=== PATIENT | male | born 1950 | race Caucasian/White ===

== ENCOUNTER 2024-03-20 07:54 | Inpatient (IN) | payer MEDICARE, BC, SELFPAY ==
[2024-03-20] VITALS (33 sets, daily range): BP systolic 134–190; BP diastolic 55–102; PULSE 92–136; RESP 19–34; TEMP 36.4–37.1; O2SAT 94–100; BMI 33.0
--- NOTE | ~2024-03-20 | XR_ITS ---
EXAMINATION: XR chest 1V portable DATE: 03/20/2024 13:22 INDICATION: Worsening respiratory status. TECHNIQUE: A single frontal view of the chest was obtained on 2 radiographs. COMPARISON: Chest single view at 8:58 AM, CT abdomen and pelvis 01/28/2013 FINDINGS: There is chronic elevation of left hemidiaphragm. There is mild atelectasis at left lung ba se. No pleural effusion or pneumothorax. The heart size is normal. IMPRESSION: 1. Chronic elevation of left hemidiaphragm with mild atelectasis at left lung base. Reviewed, dictated and finalized at location A. LE FUSION MIDDLEWARE DEVELOPER IMPRESSION: 1. Chronic elevation of left hemidiaphragm with mild atelectasis at left lung b ase.
--- NOTE | ~2024-03-20 | XR_ITS ---
Portable chest x-ray Comparison: 03/20/2024 Clinical History: Influenza Findings: Czkks-co-nowrvrau left pleural effusion present. There are central pulmonary venous conges tive changes. Right lung otherwise clear. Cardiomediastinal silhouette is stable. Bones and soft tis sues are unremarkable. Impression: Qopji-hn-tzwnichk left pleural effusion. Central pulmonary venous congestive change. Reviewed, dictated and finalized at location . OR PETROLEUM OPERATOR Impression: Dqxik-[id number]-jpxkdgwj left pleural effusion. Central pulmonary venous congestive change.
--- NOTE | ~2024-03-20 | XR_ITS ---
Portable chest x-ray Comparison: 01/05/2016 Clinical History: COPD, dyspnea Findings: There is probable mild bibasilar pulmonary edema/atelectasis. Stable elevation of left hem idiaphragm. Underlying COPD. Probable minimal pleural effusions. Cardiomediastinal silhouette is stab le. Bones and soft tissues are unremarkable. Impression: Mild bibasilar pulmonary edema/atelectasis with minimal pleural effusions. Underlying COPD and stable elevation left hemidiaphragm. Reviewed, dictated and finalized at location [employer] Impression: Mild bibasilar pulmonary edema/atelectasis with minimal pleural effusions. Underlying COPD and stable elevation left hemidiaphragm.
--- NOTE | 2024-03-20 08:02 | ECG_ITS ---
Test Date: 2024-03-20 08:00:12 Measurements Intervals [place] Rate: 127 P: 46 MN: 176 QRS: 65 QRSD: 101 T: 50 QT: 313 QTc: 456 Interpretive Statements SINUS TACHYCARDIA INCOMPLETE RIGHT BUNDLE BRANCH BLOCK BASELINE ARTIFACT- I, II, III, AVR, AVL, AVF, V3-V6 ABNORMAL ECG No previous ECG available for comparison Electronically Signed On 03-20-2024 09:04:57 FIELD SERVICER by Toney Rojas D.O.
[2024-03-20 08:16] LABS: Basophils Percent Auto 0.3 % (0.2-1.2); Eosinophils Absolute Auto 0.1 K/mm3 (0-0.3); Eosinophils Percent Auto 0.7 % (0-4.4); Hematocrit 42.2 % (42.0-52.0); Hemoglobin 13.9 g/dL (14.0-18.0); Immature Granulocyte Absolute 0.08 K/mm3 (0.00-0.031); Immature Granulocyte Percent A 0.5 % (0-0.5); Lymphocytes Absolute Auto 1.06 K/mm3 (0.9-3.2); Lymphocytes Percent Auto 7.1 % (18.3-44.2); Mean Corpuscular HGB Conc 32.9 g/dl (32-36); Mean Corpuscular Hemoglobin 31.1 pg (26-34); Mean Corpuscular Volume 94.4 fl (80-100); Mean Platelet Volume 8.4 fl (7.4-10.4); Monocytes Absolute Auto 0.9 K/mm3 (0.1-0.6); Monocytes Percent Auto 5.9 % (2.6-8.5); Neutrophils Absolute Auto 12.9 K/mm3 (1.3-6.7); Neutrophils Percent Auto 85.5 % (45.5-73.1); Platelet Count Result 218 k/mm3 (150-375); Red Blood Count 4.47 M/mm3 (4.6-6.20); Red Cell Distribution Width 12.8 % (11.5-14.5)
[2024-03-20 08:28] LABS: Alveolar/Arterial O2 Gradient 139.5 mmHg; Base Excess ABG 2.5 mEq/l (+/-2.0); Fractional Inspired Oxygen 80 %; HCO3 ABG 28.7 mEq/l (22.0-26.0); Oxygen Content ABG 21.2 %vol (16.0-22.0); Oxygen Saturation ABG 99.8 % (95.0-100.0); Oxyhemoglobin 99.2 % THb (90.0-100.0); PCO2 ABG 50.2 mmHg (35.0-45.0); PO2 ABG 378.2 mmHg (80.0-100.0); PO2 FiO2 Ratio Arterial Blood 4.73 %; Total Hemoglobin 14.5 g/dL (12.0-18.0); pH ABG 7.375 (7.350-7.450)
[2024-03-20 08:29] LABS: Device BIPAP; Expiratory Pressure 8 cmH2O; Inspiratory Pressure 16 cmH2O; Modified Allen's Test Pass; Site Drawn RIGHT RADIAL
[2024-03-20 08:30] LABS: Lactic Acid Reflex 1.6 mmol/L (0.7-2.0)
[2024-03-20] MEDS: ALBUTEROL SULFATE NEB 2.5 MG/3 ML INH 15 MG INHALATION (08:30)
[2024-03-20] MEDS: IPRATROPIUM BR 0.02% INH SOLN 0.5 MG/2.5 ML VIAL 1 MG INHALATION (08:30)
[2024-03-20 08:31] LABS: Alanine Aminotransferase 31 U/L (6-50); Albumin Level 4.3 g/dL (3.5-5.1); Alkaline Phosphatase 73 U/L (38-126); Anion Gap 13 mmol/L (4-12); Aspartate Amino Transferase 41 U/L (17-59); Bilirubin,Total 0.5 mg/dL (0.2-1.3); Blood Urea Nitrogen 15 mg/dL (9-20); Calcium 9.2 mg/dL (8.4-10.2); Carbon Dioxide 25 mmol/L (22-30); Chloride 98 mmol/L (98-107); Estimated CRCL calculation 101 ml/min; Estimated Glomerular Filt Rate > 60; Glucose 150 mg/dL (65-110); Magnesium 1.6 mg/dL (1.6-2.3); Potassium 4.1 mmol/L (3.4-5.0); Sodium 136 mmol/L (137-145)
[2024-03-20 08:42] LABS: NT Pro B Type Natriuretic Pept 214 pg/mL (19.9-100); Troponin I < 0.012 ng/mL (0.000-0.034)
--- OUTSIDE RECORDS SUMMARY | 2024-03-20 08:46 | XMS_ITS | Referral Summary ---
Author Organization [facility] Address [address] [place] [address] Care Team Providers Care External Grinder Tender Name Role Phone Unavailable Primary Care Provider Unavailabl e Source Comments [facility],non-owned Affiliates and Associated Physician Practices is amultiple site organization consisting of ambulatory clinics and hospital sitesin [place], [place], [place]. This disclosure is being madepursuant to the Care Everywhere program and may not contain all information available regarding this patient. Last updated 17.[facility] Social History Tobacco Use Types Packs/Day Years Used Date Smoking Tobacco: Never Assessed Sex and Gender Information Value Date Recorded Sex Assigned at Not on file Gender Identity Not on file Sexual Orientation Not on file Plan of Treatment Not on file
--- OUTSIDE RECORDS SUMMARY | 2024-03-20 08:46 | XMS_ITS | Clinical Summary ---
Author Organization [facility] [employer] Address [address] [place] [address] Care Team Providers Care Speed Belt Sander Name Role Phone Unavailable Primary Care Provider Unavailabl e Source Comments [facility] [employer]non-owned Affiliates and Associated Physician Practices is amultiple site organization consisting of ambulatory clinics and hospital sitesin [place], [place], [place] and [place]. This disclosure is being madepursuant to the Care Everywhere program and may not contain all information available regarding this patient. Last updated 17.[facility] [employer] Social History Tobacco Use Types Packs/Day Years Used Date Smoking Tobacco: Never Assessed Sex and Gender Information Value Date Recorded Sex Assigned at Not on file Gender Identity Not on file Sexual Orientation Not on file Plan of Treatment Health Maintenance Due Date Last Done Comments COLOGUARD (AGES 45-75) - COL ON CA SCREENING 1952 COLON MONITORING 1952 COLONOSCOPY - COLON CA SCREENING 1952 CT COLONOGRAPHY - COLON CA SCREENING 1952 Colorectal Cancer Screening 1952 FIT - COLON CA SCREENING 1952 FLEX SIG - COLON CA SCREENING 1952 LIPID TESTING 1952 HEPATITIS C SCREENING 01/14/1970 DTAP/TDAP/TD VACCINES (1 - Tdap) 01/18/1971 PNEUMOCOCCAL VACCINE 50+ (1 of 1 - PCV) 01/18/2002 ZOSTER VACCINE (1 of 2) 01/18/2002 COVID-19 VACCINE ( - 2023-2 5 season) 2023 INFLUENZA VACCINE (#1) 2023 DEPRESSION SCREENING 02/08/2024 Respiratory Syncytial Virus (RSV) Vaccine Pt: or over 60 yrs (1 - 1-dose 75+ series) 01/18/2027 HEPATITIS B VACCINE Aged Out No longe r eligible based on patient's age to complete this topic HIB VACCINE Aged Out No longer eligi ble based on patient's age to complete this topic HPV VACCINE Aged Out No longer eligi ble based on patient's age to complete this topic MENINGOCOCCAL (Group B) VACCINE Aged Out No longer eligible based on patient's age to complete this topic MENINGOCOCCAL VACCINE Aged Out No boy deb eligible based on patient's age to complete this topic
--- OUTSIDE RECORDS SUMMARY | 2024-03-20 08:46 | XMS_ITS | Patient Health Summary ---
Author Organization [facility] Address [address] [place] [address] Care Team Providers Care Ross Furnace Operator Name Role Phone Unavailable Primary Care Provider Unavailabl e Note from [facility],non-owned Affiliates and Associated Physician Practices is amultiple site organization consisting of ambulatory clinics and hospital sitesin [place], [place], [place] and [place]. This disclosure is being madepursuant to the Care Everywhere program and may not contain all information available regarding this patient. Last updated 17.[facility] [employer] Social History Tobacco Use Types Packs/Day Years Used Date Smoking Tobacco: Never Assessed Sex and Gender Information Value Date Recorded Sex Assigned at Not on file Gender Identity Not on file Sexual Orientation Not on file Procedures * CYTOLOGY NON-AUTOMATION CONTROLS EXPERT PANEL(Performed 07/25/2003) Results * CYTOLOGY NON-AUTOMATION CONTROLS EXPERT PANEL (07/25/2003 10:19 AM CDT) Result CASE NUMBER [id number] Comment: ORDERING PHYSICIAN EDY MAYES SPECIMEN TYPE Bronchial Washing-left Surgeon DR. EDY MAYES Physician DR. ROBERT CARR Report Text INDICATION FOR PROCEDURE HEMOPTYSIS OPERATION BRONCHOSCOPY SPECIMEN LEFT BRONCHIAL WASHING GROSS RECEIVED 14 ML. CLOUDY COLORLESS FLUID. MICROSCOPIC ONE CYTOLOGY THIN PREP SLIDE AND ONE CELL BLOCK SLIDE OF LEFT BRONCHIAL WASHINGS SHOW COLUMNAR CELLS, SQUAMOUS CELLS AND INFLAMMATORY CELLS. MALIGNANT CELLS ARE NOT IDENTIFIED. DIAGNOSIS DIAGNOSIS [1] LEFT BRONCHIAL WASHINGS, CYTOLOGY AND CELL BLOCK PREPARATION -- NEGATIVE FOR MALIGNANCY JW/CS Released By ROBERT CARR CPT Code 91071, 09160 MISCELLANEOUS SAMPLES / Unknown 07/25/2003 10:19 AM CDT 07/25/2003 10:19 AM CDT Historical Provider LAB - PATHOLOGY/C YTOLOGY ORDERABLES
[2024-03-20 08:51] LABS: Influenza A QL RT-PCR Positive (Negative); Influenza B QL RT-PCR Negative (Negative); RSV RNA, RT-PCR Negative (Negative); SARS-CoV-2 RNA PCR Negative (Negative)
--- NOTE | 2024-03-20 09:00 | ED.SOB ---
HPI - SOB/Dyspnea General Chief Complaint: Shortness of Breath/Dyspnea Stated Complaint: sob Time Seen by Provider: 03/20/24 07:57 History of Present Illness HPI Narrative: Patient presents here with shortness of breath, h/o COPD, has flu 1 wk ago. Last 2 days he has been using his CPAP continuously. Related Data Home Medications ?Medication ?Instructions ?Recorded ?Confirmed ?Last Taken ?Type phenytoin sodium extended 100 mg 200 mg PO Q12H 06/13/23 03/20/24 03/19/24 History capsule acetaminophen 500 mg capsule 1,000 mg PO Q12H 03/20/24 03/20/24 03/19/24 History amitriptyline 50 mg tablet 50 mg PO HS 03/20/24 03/20/24 03/19/24 History cyanocobalamin (vitamin B-12) 1,000 mcg PO DAILY 03/20/24 03/20/24 03/19/24 History 1,000 mcg tablet (Vitamin B-12) omega 6-nep-dbt-fish oil 1,000 mg 1 cap PO DAILY 03/20/24 03/20/24 03/19/24 History (120 mg-180 mg) capsule (Fish Oil) simvastatin 10 mg tablet 10 mg PO HS 03/20/24 03/20/24 03/19/24 History venlafaxine 75 mg capsule,extended 75 mg PO HS 03/20/24 03/20/24 03/19/24 History release 24 hr venlafaxine 75 mg tablet 150 mg PO QAM 03/20/24 03/20/24 03/19/24 History Allergies Allergy/AdvReac Type Severity Reaction Status Date / Time ibuprofen Allergy Intermediate Itching Verified 03/20/24 12:08 Review of Systems Review of Systems: All systems reviewed & are unremarkable except as noted in HPI and below PMFSH Past Medical History Medical History Anxiety Asthma COPD (chronic obstructive pulmonary disease) Diaphragm paralysis History of tobacco abuse Hoarseness HTN (hypertension) Hyperlipidemia Obstructive sleep apnea Shortness of Breath Stridor Surgical History Surgical History History of carpal tunnel surgery Family History Family History Father Mother Twisting of colon on long axis Social History Social History (Updated 11/23/23 @ 14:42 by Karolyn Hunter MA) Social History: Quit smoking 2019 but reports he smoking a cigarette very rarely., engages in vaping and marijuana Smoking packs per day: 0.75 Smoking cigarettes per day: 15.0 Smoking status: Current every day smoker Tobacco type: cigarettes Second hand tobacco smoke exposure: Yes Additional smoking assessment comments: 30 Alcohol intake: never Substance use: current Substance use type: marijuana Other substance usage details: gummies Do You Feel Safe in your Home?: Yes Lack of Transportation: No Lack of Food: Never True Current Housing: I Have Housing Concerned About Future Housing: No Difficulty Paying Gas/Electric Bills: No Difficulty Paying for Meds: No Currently Unemployed: No Education: Trade/Vocational Certificate Difficulty w/ Childcare or Family Care: No Living arrangements: with family Occupation/Education: retired 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 Gender identity (if verbalized by the patient): Male Spiritual care concerns: No Exam Narrative: EXAMINATION OF ORGAN SYSTEMS/BODY AREAS: Constitutional: Vital signs per nursing GENERAL:[No acute distress, non-toxic appearing.] HEAD: Normal with no signs of head trauma. EYES: EOMI, conjunctiva normal ENT: Hearing grossly intact LUNGS: Quite tachypneic and anxious appearing HEART: Tachycardic ABD: [Soft], [nontender to palpation] EXT: Normal range of motion, no lower extremity edema or tenderness SKIN: [No rashes or lesions.] NEURO: [Alert and oriented x 3. No gross focal sensory or strength deficits.] PSYCH: Normal affect Course Vital Signs Vital signs: Vital Signs Temperature 97.9 F 03/20/24 07:57 Pulse Rate 130 H 03/20/24 07:57 Respiratory Rate 22 H 03/20/24 07:57 Blood Pressure 190/102 H 03/20/24 07:57 Pulse Oximetry 100 03/20/24 07:57 Oxygen Delivery BiPAP 03/20/24 07:57 Temperature 98.5 F 03/20/24 12:06 Pulse Rate 121 H 03/20/24 12:06 Respiratory Rate 34 H 03/20/24 12:06 Blood Pressure 142/99 H 03/20/24 12:06 Pulse Oximetry 97 03/20/24 12:06 Oxygen Delivery BiPAP 03/20/24 11:50 MDM - SOB/Dyspnea MDM Narrative Medical decision making narrative: Patient presents with shortness of breath, he has history of COPD, is now much more comfortable on BiPAP. He is tachycardic dyspneic here, very anxious appearing, did give him small dose of Ativan with improvement in symptoms, he did test positive for the flu, will start him on Tamiflu and admit him for further evaluation and treatment. Discussed with hospitalist. Patient agreeable to plan. Lab Data 03/20/24 08:05 03/20/24 08:05 Labs: Lab Results 03/20/24 03/20/24 Range/Units 08:05 08:20 WBC 15.0 H (4.5-10.0) K/mm3 RBC 4.47 L (4.6-6.20) M/mm3 Hgb 13.9 L (14.0-18.0) g/dL Hct 42.2 (42.0-52.0) % MCV 94.4 (80-100) fl MCH 31.1 (26-34) pg MCHC 32.9 (32-36) g/dl RDW 12.8 (11.5-14.5) % Plt Count 218 (150-375) k/mm3 MPV 8.4 (7.4-10.4) fl Immature Gran % (Auto) 0.5 (0-0.5) % Neut % (Auto) 85.5 H (45.5-73.1) % Lymph % (Auto) 7.1 L (18.3-44.2) % [place] % (Auto) 5.9 (2.6-8.5) % Eos % (Auto) 0.7 (0-4.4) % Baso % (Auto) 0.3 (0.2-1.2) % Lymph # (Auto) 1.06 (0.9-3.2) K/mm3 [place] # (Auto) 0.9 H (0.1-0.6) K/mm3 Eos # (Auto) 0.1 (0-0.3) K/mm3 Baso # (Auto) 0.0 (0.0-0.1) K/mm3 Abs Immat Gran (auto) 0.08 H (0.00-0.031) K/mm3 Absolute Neuts (auto) 12.9 H (1.3-6.7) K/mm3 Absolute Nucleated RBC 0.000 (0.0-0.012) K/mm3 Nucleated RBC % 0.0 (0.0-0.2) % PT 13.0 (11.1-14.7) Seconds INR 1.0 APTT 28.3 (22.3-36.8) Seconds Expiratory Pressure 8 cmH2O Inspiratory Pressure 16 cmH2O Sodium 136 L (137-145) mmol/L Potassium 4.1 (3.4-5.0) mmol/L Chloride 98 (98-107) mmol/L Carbon Dioxide 25 (22-30) mmol/L Anion Gap 13 H (4-12) mmol/L BUN 15 (9-20) mg/dL Creatinine 0.73 (0.7-1.3) mg/dL Estim Creat Clear Calc 101 ml/min Estimated GFR > 60 (59 - ) Glucose 150 H (65-110) mg/dL Lactic Acid 1.6 (0.7-2.0) mmol/L Calcium 9.2 (8.4-10.2) mg/dL Magnesium 1.6 (1.6-2.3) mg/dL Total Bilirubin 0.5 (0.2-1.3) mg/dL AST 41 (17-59) U/L ALT 31 (6-50) U/L Alkaline Phosphatase 73 (38-126) U/L Troponin I < 0.012 (0.000-0.034) ng/mL NT-Pro-B Natriuret Pep 214 H (19.9-100) pg/mL Total Protein 9.0 H (6.3-8.2) g/dL Albumin 4.3 (3.5-5.1) g/dL Influenza A (RT-PCR) Positive A (Negative) Influenza B (RT-PCR) Negative (Negative) RSV (RT-PCR) Negative (Negative) SARS-CoV-2 RNA (RT-PCR) Negative (Negative) ABG Data ABG results: 03/20/24 08:20 Puncture Site Right radial ABG pH 7.375 ABG pCO2 50.2 H ABG pO2 378.2 H ABG PO2/FiO2 Ratio 4.73 ABG HCO3 28.7 H ABG O2 Saturation 99.8 ABG O2 Content 21.2 ABG Base Excess 2.5 A-a Gradient 139.5 Oxyhemoglobin 99.2 Total Hemoglobin 14.5 O2 Delivery Device Bipap O2 Liters/Min Not Reportable FiO2 80 Critical Care Time Critical Care Time Critical Care Time: Yes Total Critical Care Time: 31 Discharge Plan Discharge Clinical Impression: Flu, Chronic obstructive pulmonary disease with acute exacerbation Patient Disposition: Still a Patient Condition: Serious
[2024-03-20 09:08] LABS: Partial Thromboplastin Time 28.3 Seconds (22.3-36.8)
[2024-03-20] MEDS: methylPREDNISolone SOD SUCC 125 MG VIAL IV PUSH (10:19)
[2024-03-20] MEDS: LACTATED RINGERS 1,000 ML 999 ML IV CONT (10:19)
[2024-03-20] MEDS: LORazepam INJ (*CRX) 2 MG/ML VIAL 0.5 MG IV PUSH (10:19)
[2024-03-20] MEDS: OSELTAMIVIR PHOSPHATE 75 MG CAPSULE PO ×2 (11:25→21:14)
--- NOTE | 2024-03-20 12:06 | ADMGEN ---
This patient, Scot Watson Sr., was admitted to IMU Room 210-01. Patient/family oriented to hospital policies and general routines including ID bracelet, bed and alarms, visiting hours, pain management, procedures, bathroom and other care routines, personal items, smoking policy, room service/diet, and visiting hours. Information on how to activate the Rapid Response Team has been discussed. Patient/Family are encouraged to report perceived risks to care and to ask questions if they do not understand what they are told or what they should do.
--- NOTE | 2024-03-20 13:04 | P.HP_ITS ---
H&P: HPI History of Present Illness Date/Time: 03/20/24 13:04 Chief Complaint: Shortness of breath Narrative: 74-year-old male with history of COPD presents to the hospital shortness of breath. Patient states that his has been sick for the past couple days and he was afraid that he would get sick. he states that his breathing was so bad last night that he thought he was going to . So he came to the hospital this morning with extreme shortness of breath Unable to lay flat or on his side. He states like he felt like he was drowning. Patient denies fevers chills nausea or vomiting. Leukocytosis at 15.0, ABG pH 7.37, pCO2 50.2, PO2 378, HC03 28, on the BiPAP in the emergency room, anion gap 13, glucose 150, lactic acid 1.6, BNP 214, influenza A positive, influenza B, RSV, COVID negative. Chest x-ray shows mild pulmonary edema versus atelectasis with pleural effusion. EKG shows sinus tachycardia rate of 127 with incomplete right bundle luis block. Review of Systems Review of Systems: 12 systems were reviewed and are negative except for as per HPI. [facility] Past Medical History Medical History Stridor Hoarseness History of tobacco abuse Obstructive sleep apnea Shortness of Breath Diaphragm paralysis Anxiety COPD (chronic obstructive pulmonary disease) Asthma Hyperlipidemia HTN (hypertension) Surgical History Surgical History History of carpal tunnel surgery Family History Family History Father Mother Twisting of colon on long axis Social History Social History Social History: Quit smoking 2018 but reports he smoking a cigarette very rarely., engages in vaping and marijuana Smoking packs per day: 0.75 Smoking cigarettes per day: 15.0 Smoking status: Current every day smoker Tobacco type: cigarettes Second hand tobacco smoke exposure: Yes Additional smoking assessment comments: 30 Alcohol intake: never Substance use: current Substance use type: marijuana Other substance usage details: gummies Do You Feel Safe in your Home?: Yes Lack of Transportation: No Lack of Food: Never True Current Housing: I Have Housing Concerned About Future Housing: No Difficulty Paying Gas/Electric Bills: No Difficulty Paying for Meds: No Currently Unemployed: No Education: Trade/Vocational Certificate Difficulty w/ Childcare or Family Care: No Living arrangements: with family Occupation/Education: retired 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 Gender identity (if verbalized by the patient): Male Spiritual care concerns: No Meds Home Medications and Allergies Home Medications ?Medication ?Instructions ?Recorded ?Confirmed ?Type albuterol sulfate 2.5 mg/3 mL 2.5 mg (3 mL) inhalation Q4-6H PRN 07/23/20 03/20/24 Rx (0.083 %) solution for nebulization shortness of breath or wheezing 90 days #1,080 mL buspirone 15 mg tablet 15 mg PO QAM #90 tabs 04/11/23 03/20/24 Rx phenytoin sodium extended 100 mg 200 mg PO Q12H 06/13/23 03/20/24 History capsule triamterene 37.5 See Rx Instructions .Route 08/14/23 03/20/24 Rx mg-hydrochlorothiazide 25 mg .COMPLEX #90 caps capsule budesonide-formoterol HFA 80 2 puff inhalation Q12H 90 days 11/23/23 03/20/24 Rx mcg-4.5 mcg/actuation aerosol #30.6 grams inhaler (Symbicort) Incruse Ellipta 62.5 mcg/actuation 1 inh inhalation Q24H #30 ea 02/10/24 03/20/24 Rx powder for inhalation (umeclidinium) Incruse Ellipta 62.5 mcg/actuation 1 inh inhalation Q24H 90 days #90 02/10/24 03/20/24 Rx powder for inhalation ea (umeclidinium) albuterol sulfate 90 mcg/actuation See Rx Instructions .Route 02/14/24 03/20/24 Rx aerosol inhaler .COMPLEX #51 grams acetaminophen 500 mg capsule 1,000 mg PO Q12H 03/20/24 03/20/24 History amitriptyline 50 mg tablet 50 mg PO HS 03/20/24 03/20/24 History cyanocobalamin (vitamin B-12) 1,000 mcg PO DAILY 03/20/24 03/20/24 History 1,000 mcg tablet (Vitamin B-12) omega 9-dme-nhe-fish oil 1,000 mg 1 cap PO DAILY 03/20/24 03/20/24 History (120 mg-180 mg) capsule (Fish Oil) simvastatin 10 mg tablet 10 mg PO HS 03/20/24 03/20/24 History venlafaxine 75 mg capsule,extended 75 mg PO HS 03/20/24 03/20/24 History release 24 hr venlafaxine 75 mg tablet 150 mg PO QAM 03/20/24 03/20/24 History Allergies Allergy/AdvReac Type Severity Reaction Status Date / Time ibuprofen Allergy Intermediate Itching Verified 03/20/24 12:08 Vital Signs Vital Signs - 24 hr 03/20/24 07:57 03/20/24 08:00 03/20/24 08:08 Temperature 97.9 F Pulse Rate 130 H 128 H 124 H Respiratory Rate 22 H 28 H 21 H Blood Pressure 190/102 H Pulse Oximetry 100 100 Oxygen Delivery BiPAP BiPAP 03/20/24 08:15 03/20/24 08:30 03/20/24 08:30 Temperature Pulse Rate 135 H 122 H 128 H Respiratory Rate 20 28 H Blood Pressure Pulse Oximetry 99 97 Oxygen Delivery BiPAP 03/20/24 08:38 03/20/24 08:56 03/20/24 09:03 Temperature Pulse Rate 124 H 124 H Respiratory Rate 25 H 19 Blood Pressure Pulse Oximetry 100 97 99 Oxygen Delivery 03/20/24 09:05 03/20/24 09:15 03/20/24 09:30 Temperature Pulse Rate 126 H 136 H 125 H Respiratory Rate 21 H 22 H 26 H Blood Pressure 159/91 H Pulse Oximetry 97 97 96 Oxygen Delivery 03/20/24 09:45 03/20/24 09:55 03/20/24 10:00 Temperature Pulse Rate 125 H 123 H 124 H Respiratory Rate 21 H 25 H 26 H Blood Pressure 151/99 H Pulse Oximetry 99 99 98 Oxygen Delivery BiPAP 03/20/24 10:16 03/20/24 10:17 03/20/24 10:17 Temperature Pulse Rate 124 H 122 H Respiratory Rate 22 H Blood Pressure Pulse Oximetry 98 98 Oxygen Delivery BiPAP 03/20/24 10:18 03/20/24 11:25 03/20/24 11:50 Temperature Pulse Rate 121 H 122 H Respiratory Rate 28 H 23 H Blood Pressure Pulse Oximetry 97 99 Oxygen Delivery BiPAP BiPAP 03/20/24 12:06 Temperature 98.5 F Pulse Rate 121 H Respiratory Rate 34 H Blood Pressure 142/99 H Pulse Oximetry 97 Oxygen Delivery Exam Narrative: General: Mild distress, tachypneic HEENT: normocephalic, atraumatic. Mucous membranes moist. EOMI, PERRLA, bilateral sclera anicteric, no conjunctival injection. Neck supple without JVD, lymphadenopathy, or bruit. Respiratory: Course to ascultation bilaterally. Tachypneic on BiPAP Cardiovascular: Tachycardic Regular rate and rhythm, normal S1-S2 upon ascultation. No murmurs, rubs, or clicks. PMI is nondisplaced, capillary refill less than 3 second. Abdomen: Soft, round, no pulsatile masses, nondistended and nontender. No rebound, no guarding. No CVA tenderness, no hepatosplenomegaly. Bowel sounds present to all four quadrants. No high pitch or tinkling sounds, resonant to percussion. Extremities: No cyanosis, clubbing, or edema present. Pulses are palpable 2/2. Active ROM to all four extremities. Neuro: Alert and orientated x 4. PERRLA. Cranial nerves 2-12 intact without focal deficit. Skin: Warm, dry, and intact, without rash, erythema, or lesion. Psych: pleasant, cooperative, normal speech, normal affect, no hallucinations, no dysarthia H&P: Results Labs Labs: Short CBC 03/20/24 Range/Units 08:05 WBC 15.0 H (4.5-10.0) K/mm3 Hgb 13.9 L (14.0-18.0) g/dL Hct 42.2 (42.0-52.0) % Plt Count 218 (150-375) k/mm3 BMP 03/20/24 08:05 Sodium 136 L Potassium 4.1 Chloride 98 Carbon Dioxide 25 BUN 15 Creatinine 0.73 Glucose 150 H Calcium 9.2 Cardiac Enzymes 03/20/24 Range/Units 08:05 Troponin I < 0.012 (0.000-0.034) ng/mL Liver Function 03/20/24 Range/Units 08:05 Total Bilirubin 0.5 (0.2-1.3) mg/dL AST 41 (17-59) U/L ALT 31 (6-50) U/L Alkaline Phosphatase 73 (38-126) U/L Albumin 4.3 (3.5-5.1) g/dL Assessment and Plan Assessment and plan (1) Acute respiratory distress: Code(s): R06.03 - Acute respiratory distress Status: Acute Assessment and Plan: Secondary to COPD exacerbation and pulmonary edema with no history of CHF Patient on BiPAP with increased respiratory distress since admission, patient wishes to be intubated for respiratory distress if needed Repeat ABG essentially the same Repeat chest x-ray wet read with increased pulmonary edema 40 IV Lasix x2 (2) Flu: Code(s): J11.1 - Influenza due to unidentified influenza virus with other respiratory manifestations Status: Acute Assessment and Plan: Tamiflu started in ED Continue for 5 days (3) Chronic obstructive pulmonary disease with acute exacerbation: Code(s): J44.1 - Chronic obstructive pulmonary disease with (acute) exacerbation Status: Acute Assessment and Plan: Xopenex ordered due to tachycardia Home long-acting inhalers ordered (4) Pulmonary edema: Code(s): J81.1 - Chronic pulmonary edema Status: Acute Assessment and Plan: No known history of CHF, echo from 2012 shows hyperdynamic left ventricle systolic function with EF of 75% Echocardiogram ordered pending IV Lasix x2 Cardiology consulted (5) HTN (hypertension): Qualifiers: Hypertension type: essential hypertension Qualified Code(s): I10 - Essential (primary) hypertension Code(s): I10 - Essential (primary) hypertension Status: Acute Assessment and Plan: Ordered home antihypertensives (6) Hyperlipidemia: Qualifiers: Hyperlipidemia type: mixed hyperlipidemia Qualified Code(s): E78.2 - Mixed hyperlipidemia Code(s): E78.5 - Hyperlipidemia, unspecified Status: Acute Assessment and Plan: Ordered home statin (7) Anxiety: Code(s): F41.9 - Anxiety disorder, unspecified Status: Acute Assessment and Plan: Ordered home antidepressants and anxiety medication P.r.n. Ativan added (8) Seizure: Code(s): R56.9 - Unspecified convulsions Status: Acute Assessment and Plan: Ordered home seizure meds Quality VTE Prophylaxis VTE prophylaxis: mechanical ordered and pharmacologic ordered Repeat a.m. labs ordered Hospitalist MIPS Advance Care Plan I have confirmed that the patient's Advanced Care Plan is present, code status is documented, or surrogate decision maker is listed in patient medical record.: Yes Medication Reconciliation I have utilized all available resources to obtain, update and review the patients current medications (includes all prescriptions, OTC, herbals, ca nnabis, and nutritional supplements).: Yes
[2024-03-20 13:07] LABS: Alveolar/Arterial O2 Gradient 58.9 mmHg; Base Excess ABG 2.3 mEq/l (+/-2.0); Fractional Inspired Oxygen 30 %; HCO3 ABG 28.3 mEq/l (22.0-26.0); Oxygen Content ABG 19.1 %vol (16.0-22.0); Oxygen Saturation ABG 97.2 % (95.0-100.0); Oxyhemoglobin 97.3 % THb (90.0-100.0); PCO2 ABG 49.2 mmHg (35.0-45.0); PO2 ABG 97.2 mmHg (80.0-100.0); PO2 FiO2 Ratio Arterial Blood 3.24 %; Total Hemoglobin 13.9 g/dL (12.0-18.0); pH ABG 7.377 (7.350-7.450)
[2024-03-20] MEDS: VENLAFAXINE HCL XR 75 MG CAP.ER.24H 150 MG PO (13:09)
[2024-03-20] MEDS: PHENYTOIN SODIUM 100 MG EXTENDED RELEASE CAP 200 MG PO ×2 (13:09→21:13)
[2024-03-20 13:11] LABS: Device BIPAP; Modified Allen's Test Pass; Site Drawn LEFT RADIAL
[2024-03-20 13:12] LABS: Expiratory Pressure 8 cmH2O; Inspiratory Pressure 16 cmH2O
[2024-03-20] MEDS: FUROSEMIDE INJ 40 MG/4 ML VIAL IV PUSH ×2 (13:24→21:15)
[2024-03-20] MEDS: busPIRone HCL 10 MG, busPIRone HCL 5 MG 15 MG PO (13:24)
[2024-03-20] MEDS: LEVALBUTEROL NEB 1.25 MG/3 ML INHALATION ×2 (15:20→20:52)
[2024-03-20] MEDS: ENOXAPARIN 40 MG/0.4 ML SYRINGE SUB-Q (15:39)
[2024-03-20] MEDS: LORazepam (*CRX) 0.5 MG TABLET PO (17:51)
--- NOTE | 2024-03-20 18:42 | PHAR ---
PT'S HOME MED SYMBICORT 80/4.5 MDI VERIFIED BY PHARMACY
[2024-03-20] MEDS: [UNRECOGNIZED DRUG - OTHER] INHALATION (20:52)
[2024-03-20] MEDS: BUDESONIDE INHALATION (20:52)
[2024-03-20] MEDS: FORMOTEROL INHALATION (20:52)
[2024-03-20] MEDS: ACETAMINOPHEN 325 MG TABLET 650 MG PO (21:11)
[2024-03-20] MEDS: SIMVASTATIN 10 MG TABLET PO (21:13)
[2024-03-20] MEDS: VENLAFAXINE HCL XR 75 MG CAP.ER.24H PO (21:13)
[2024-03-20] MEDS: LORazepam (*CRX) 1 MG TABLET PO (21:13)
[2024-03-20] MEDS: AMITRIPTYLINE HCL 25 MG TABLET 50 MG PO (21:14)
[2024-03-21] VITALS (21 sets, daily range): BP systolic 115–144; BP diastolic 52–96; PULSE 80–104; RESP 20–28; TEMP 36.5–36.8; O2SAT 95–100
[2024-03-21] MEDS: LEVALBUTEROL NEB 1.25 MG/3 ML INHALATION ×4 (02:31→21:35)
[2024-03-21] MEDS: LORazepam (*CRX) 1 MG TABLET PO ×4 (03:08→21:46)
[2024-03-21] MEDS: ACETAMINOPHEN 325 MG TABLET 650 MG PO ×2 (03:08→08:30)
[2024-03-21 05:50] LABS: Basophils Percent Auto 0.4 % (0.2-1.2); Eosinophils Percent Auto 0.3 % (0-4.4); Hemoglobin 11.8 g/dL (14.0-18.0); Immature Granulocyte Absolute 0.04 K/mm3 (0.00-0.031); Immature Granulocyte Percent A 0.4 % (0-0.5); Lymphocytes Absolute Auto 1.78 K/mm3 (0.9-3.2); Lymphocytes Percent Auto 17.1 % (18.3-44.2); Mean Corpuscular HGB Conc 32.8 g/dl (32-36); Mean Corpuscular Hemoglobin 32.1 pg (26-34); Mean Corpuscular Volume 97.8 fl (80-100); Mean Platelet Volume 10.1 fl (7.4-10.4); Monocytes Absolute Auto 1.1 K/mm3 (0.1-0.6); Monocytes Percent Auto 10.2 % (2.6-8.5); Neutrophils Absolute Auto 7.4 K/mm3 (1.3-6.7); Neutrophils Percent Auto 71.6 % (45.5-73.1); Platelet Count Result 235 k/mm3 (150-375); Red Blood Count 3.68 M/mm3 (4.6-6.20); Red Cell Distribution Width 13.1 % (11.5-14.5); White Blood Count 10.4 K/mm3 (4.5-10.0)
[2024-03-21 06:22] LABS: Anion Gap 7 mmol/L (4-12); Blood Urea Nitrogen 22 mg/dL (9-20); Calcium 8.4 mg/dL (8.4-10.2); Carbon Dioxide 34 mmol/L (22-30); Chloride 93 mmol/L (98-107); Estimated CRCL calculation 100 ml/min; Estimated Glomerular Filt Rate > 60; Glucose 111 mg/dL (65-110); Potassium 3.8 mmol/L (3.4-5.0); Sodium 134 mmol/L (137-145)
[2024-03-21] MEDS: OSELTAMIVIR PHOSPHATE 75 MG CAPSULE PO ×2 (08:31→20:10)
[2024-03-21] MEDS: VENLAFAXINE HCL XR 75 MG CAP.ER.24H 150 MG PO (08:31)
[2024-03-21] MEDS: busPIRone HCL 5 MG TABLET 15 MG PO (08:31)
[2024-03-21] MEDS: TRIAMTERENE 37.5 MG/HCTZ 25 MG (MAXZIDE) TABLET 1 TAB PO (08:31)
[2024-03-21] MEDS: ENOXAPARIN 40 MG/0.4 ML SYRINGE SUB-Q (08:31)
[2024-03-21] MEDS: PHENYTOIN SODIUM 100 MG EXTENDED RELEASE CAP 200 MG PO ×2 (08:31→20:09)
[2024-03-21] MEDS: [UNRECOGNIZED DRUG - OTHER] INHALATION ×2 (08:32→21:50)
[2024-03-21] MEDS: FORMOTEROL INHALATION ×2 (08:32→21:50)
[2024-03-21] MEDS: BUDESONIDE INHALATION ×2 (08:32→21:50)
[2024-03-21] MEDS: UMECLIDINIUM BROMIDE 62.5 MCG ELLIPTA 1 PUFF INHALATION (08:48)
--- NOTE | 2024-03-21 09:24 | P.PNIM_ITS ---
Progress Note: A&P Assessment and Plan (1) Acute respiratory distress: Code(s): R06.03 - Acute respiratory distress Status: Acute Assessment and Plan: Secondary to COPD exacerbation and pulmonary edema with no history of CHF Patient on BiPAP with increased respiratory distress since admission, patient wishes to be intubated for respiratory distress if needed Repeat ABG essentially the same Repeat chest x-ray wet read with increased pulmonary edema 40 IV Lasix x2 stable- contunie pt is requesting to be seen per pulm. (2) Flu: Code(s): J11.1 - Influenza due to unidentified influenza virus with other respiratory manifestations Status: Acute Assessment and Plan: Tamiflu started in ED Continue for 5 days (3) Chronic obstructive pulmonary disease with acute exacerbation: Code(s): J44.1 - Chronic obstructive pulmonary disease with (acute) exacerbation Status: Acute Assessment and Plan: Xopenex ordered due to tachycardia Home long-acting inhalers ordered continue breathing tx pulm consult per pt request (4) Pulmonary edema: Code(s): J81.1 - Chronic pulmonary edema Status: Acute Assessment and Plan: No known history of CHF, echo from 2011 shows hyperdynamic left ventricle systolic function with EF of 75% Echocardiogram ordered pending IV Lasix x2 Cardiology consulted (5) HTN (hypertension): Qualifiers: Hypertension type: essential hypertension Qualified Code(s): I10 - Essential (primary) hypertension Code(s): I10 - Essential (primary) hypertension Status: Acute Assessment and Plan: Ordered home antihypertensives (6) Hyperlipidemia: Qualifiers: Hyperlipidemia type: mixed hyperlipidemia Qualified Code(s): E78.2 - Mixed hyperlipidemia Code(s): E78.5 - Hyperlipidemia, unspecified Status: Acute Assessment and Plan: Ordered home statin (7) Anxiety: Code(s): F41.9 - Anxiety disorder, unspecified Status: Acute Assessment and Plan: Ordered home antidepressants and anxiety medication P.r.n. Ativan added monitor for now (8) Seizure: Code(s): R56.9 - Unspecified convulsions Status: Acute Assessment and Plan: Ordered home seizure meds Time Spent With Patient Time with patient: 25 - 35 minutes Subjective Date/time seen: 03/21/24 09:24 Interval history: Shortness of breath 74-year-old male with history of COPD admitted for shortness of breath. His has been sick for the past couple days. he states that his breathing was so bad last night that he thought he was going to . Unable to lay flat or on his side, he felt like he was drowning. Denies fevers chills nausea or vomiting. In ED: leukocytosis at 15.0, ABG pH 7.37, pCO2 50.2, PO2 378, HC03 28, on the BiPAP in the emergency room, anion gap 13, glucose 150, lactic acid 1.6, BNP 214, influenza A positive, influenza B, RSV, COVID negative. Chest x-ray - mild pulmonary edema versus atelectasis with pleural effusion. EKG - sinus tachycardia rate of 127 with incomplete right bundle luis block. Cardiology was consulted. Xopenex - due to tachycardia Home long-acting inhalers continued. Assuming care- pt is seen and examined.He is comfortable on bipap, in no resp distress. States his is sick at home too. Reports that he needs tylenol for his headaches and anxiety meds restarted. Review of Systems Review of Systems: 12 systems were reviewed and are negative except for as per HPI. Exam Narrative: General: comfortable, able to speak in full sentences HEENT: normocephalic, atraumatic. Mucous membranes moist. EOMI, PERRLA, bilateral sclera anicteric, no conjunctival injection. Neck supple without JVD, lymphadenopathy, or bruit. Respiratory: Course to ascultation bilaterally. diminished. comfortable on BiPAP Cardiovascular: Tachycardic Regular rate and rhythm, normal S1-S2 upon ascult ation. No murmurs, rubs, or clicks. PMI is nondisplaced, capillary refill less than 3 second. Abdomen: Soft, round, no pulsatile masses, nondistended and nontender. No rebound, no guarding. No CVA tenderness, no hepatosplenomegaly. Bowel sounds present to all four quadrants. No high pitch or tinkling sounds, resonant to percussion. Extremities: No cyanosis, clubbing, or edema present. Pulses are palpable 2/2. Active ROM to all four extremities. Neuro: Alert and orientated x 4. PERRLA. Cranial nerves 2-12 intact without focal deficit. Skin: Warm, dry, and intact, without rash, erythema, or lesion. Psych: pleasant, cooperative, normal speech, normal affect, no hallucinations, no dysarthia Objective Data Vital Signs Vital Signs: Vital Signs - 24 hr 03/20/24 09:30 03/20/24 09:45 03/20/24 09:55 Temperature Pulse Rate 125 H 125 H 123 H Respiratory Rate 26 H 21 H 25 H Blood Pressure Pulse Oximetry 96 99 99 Oxygen Delivery BiPAP Fraction of Inspired Oxygen 03/20/24 10:00 03/20/24 10:16 03/20/24 10:17 Temperature Pulse Rate 124 H 124 H 122 H Respiratory Rate 26 H 22 H Blood Pressure 151/99 H Pulse Oximetry 98 98 Oxygen Delivery Fraction of Inspired Oxygen 03/20/24 10:17 03/20/24 10:18 03/20/24 11:25 Temperature Pulse Rate 121 H Respiratory Rate 28 H Blood Pressure Pulse Oximetry 98 97 Oxygen Delivery BiPAP BiPAP Fraction of Inspired Oxygen 03/20/24 11:50 03/20/24 12:00 03/20/24 12:00 Temperature Pulse Rate 122 H 125 H 121 H Respiratory Rate 23 H 34 H Blood Pressure Pulse Oximetry 99 97 Oxygen Delivery BiPAP BiPAP Fraction of Inspired Oxygen 30 03/20/24 12:06 03/20/24 14:00 03/20/24 15:20 Temperature 98.5 F Pulse Rate 121 H 114 H Respiratory Rate 34 H Blood Pressure 142/99 H Pulse Oximetry 97 94 Oxygen Delivery BiPAP Fraction of Inspired Oxygen 30 03/20/24 15:20 03/20/24 15:42 03/20/24 16:00 Temperature 98.8 F Pulse Rate 100 117 H 117 H Respiratory Rate 26 H 24 H 24 H Blood Pressure 146/98 H Pulse Oximetry 98 98 Oxygen Delivery BiPAP Fraction of Inspired Oxygen 30 03/20/24 16:00 03/20/24 18:00 03/20/24 20:00 Temperature Pulse Rate 109 H 116 H 105 H Respiratory Rate 26 H Blood Pressure Pulse Oximetry 99 Oxygen Delivery BiPAP Fraction of Inspired Oxygen 30 03/20/24 20:00 03/20/24 20:52 03/20/24 20:53 Temperature 98.6 F Pulse Rate 105 H 101 H 101 H Respiratory Rate 24 H 29 H Blood Pressure 144/94 H Pulse Oximetry 100 99 Oxygen Delivery BiPAP Fraction of Inspired Oxygen 03/20/24 20:53 03/20/24 20:59 03/20/24 22:00 Temperature Pulse Rate 101 H 100 93 Respiratory Rate 29 H 26 H Blood Pressure Pulse Oximetry Oxygen Delivery Fraction of Inspired Oxygen 03/20/24 23:40 03/20/24 23:50 03/20/24 23:52 Temperature 97.5 F L Pulse Rate 92 99 98 Respiratory Rate 25 H 21 H 21 H Blood Pressure 134/55 L Pulse Oximetry 98 97 100 Oxygen Delivery BiPAP BiPAP Fraction of Inspired Oxygen 30 03/20/24 23:52 03/21/24 02:00 03/21/24 02:31 Temperature Pulse Rate 98 84 95 Respiratory Rate 21 H Blood Pressure Pulse Oximetry Oxygen Delivery Fraction of Inspired Oxygen 03/21/24 02:31 03/21/24 02:36 03/21/24 03:22 Temperature 97.8 F Pulse Rate 95 96 93 Respiratory Rate 21 H 21 H 22 H Blood Pressure 116/96 H Pulse Oximetry 100 97 Oxygen Delivery BiPAP Fraction of Inspired Oxygen 03/21/24 03:49 03/21/24 03:49 03/21/24 06:00 Temperature Pulse Rate 92 92 80 Respiratory Rate 22 H Blood Pressure Pulse Oximetry 99 Oxygen Delivery BiPAP Fraction of Inspired Oxygen 30 03/21/24 07:58 03/21/24 07:58 03/21/24 07:59 Temperature Pulse Rate 80 80 Respiratory Rate 20 21 H Blood Pressure Pulse Oximetry 97 97 Oxygen Delivery BiPAP BiPAP Fraction of Inspired Oxygen 30 03/21/24 08:00 Temperature 98.2 F Pulse Rate 104 H Respiratory Rate 24 H Blood Pressure 115/84 Pulse Oximetry 97 Oxygen Delivery Fraction of Inspired Oxygen Intake/Output Intake/Output: Intake & Output 03/18/24 03/19/24 03/20/24 03/21/24 23:59 23:59 23:59 23:59 Intake Total 350 1000 Output Total 925 400 Balance -575 600 Meds/Results Medications: Active Medications Generic Name Dose Route Start Last Admin Trade Name Freq PRN Reason Stop Dose Admin Acetaminophen 650 mg 03/20/24 13:46 03/21/24 08:30 Acetaminophen 325 Mg Tablet PO 650 mg Q4H PRN Administration Mild Pain (1-3) or Fever Amitriptyline HCl 50 mg 03/20/24 21:00 03/20/24 21:14 Amitriptyline Hcl 25 Mg Tablet PO 50 mg HS JONATHAN Administration Buspirone HCl 15 mg 03/21/24 09:00 03/21/24 08:31 Buspirone Hcl 5 Mg Tablet PO 15 mg QAM JONATHAN Administration Docusate Sodium 100 mg 03/21/24 09:00 03/21/24 08:34 Docusate Sodium 100 Mg Capsule PO Not Given DAILY JONATHAN Enoxaparin Sodium 40 mg 03/20/24 13:50 03/21/24 08:31 Enoxaparin 40 Mg/0.4 Ml Syringe SUB-Q 40 mg DAILY JONATHAN Administration Levalbuterol HCl 1.25 mg 03/20/24 14:00 03/21/24 07:57 Levalbuterol Neb 1.25 Mg/3 Ml INHALATION 1.25 mg Q6HRT JONATHAN Administration Lorazepam 1 mg 03/20/24 19:16 03/21/24 03:08 Lorazepam (*Crx) 1 Mg Tablet PO 1 mg Q6H PRN Administration Anxiety Non-Formulary ( 0 each 03/20/24 20:00 03/21/24 08:32 Budesonide/ INHALATION 04/19/24 19:59 1 each Formoterol Fumarate Q12HRT JONATHAN Administration 80 Mcg-4.5 Mcg/ Actuation Inhalation ...) Oseltamivir Phosphate 75 mg 03/20/24 21:00 03/21/24 08:31 Oseltamivir Phosphate 75 Mg Capsule PO 03/24/24 21:01 75 mg Q12HR JNOATHAN Administration Perflutren Lipid Microsphere 0 ml 03/20/24 13:42 Perflutren Lipid Microspheres 1.5 Ml Vial Diluted To 10 Ml Total Volume IV PUSH 03/23/24 13:42 ONCE PRN adequate visualization Protocol Phenytoin Sodium 200 mg 03/20/24 12:50 03/21/24 08:31 Phenytoin Sodium 100 Mg Extended Release Cap PO 200 mg Q12HR JONATHAN Administration Simvastatin 10 mg 03/20/24 21:00 03/20/24 21:13 Simvastatin 10 Mg Tablet PO 10 mg HS JONATHAN Administration Triamterene/Hydrochlorothiazide 1 tab 03/21/24 09:00 03/21/24 08:31 Triamterene 37.5 Mg/Hctz 25 Mg (Maxzide) Tablet PO 1 tab QAM JONATHAN Administration Umeclidinium [place] 1 puff 03/20/24 13:45 03/21/24 08:48 Umeclidinium [place] 62.5 Mcg Ellipta INHALATION 1 puff Q24H JONATHAN Administration Venlafaxine HCl 75 mg 03/20/24 21:00 03/20/24 21:13 Venlafaxine Hcl Xr 75 Mg Cap.Er.24h PO 75 mg HS JONATHAN Administration Venlafaxine HCl 150 mg 03/20/24 12:50 03/21/24 08:31 Venlafaxine Hcl Xr 75 Mg Cap.Er.24h PO 150 mg QAM JONATHAN Administration Radiology Results: ITS Impressions Chest X-Ray 03/20/24 13:30 IMPRESSION: 1. Chronic elevation of left hemidiaphragm with mild atelectasis at left lung base. Labs Labs: Laboratory Results - last 24 hr 03/20/24 03/21/24 13:04 05:28 WBC 10.4 H RBC 3.68 L Hgb 11.8 L Hct 36.0 L MCV 97.8 MCH 32.1 MCHC 32.8 RDW 13.1 Plt Count 235 MPV 10.1 Immature Gran % (Auto) 0.4 Neut % (Auto) 71.6 Lymph % (Auto) 17.[address] [place] % (Auto) 10.2 H Eos % (Auto) 0.3 Baso % (Auto) 0.4 Lymph # (Auto) 1.78 [place] # (Auto) 1.1 H Eos # (Auto) 0.0 Baso # (Auto) 0.0 Abs Immat Gran (auto) 0.04 H Absolute Neuts (auto) 7.4 H Absolute Nucleated RBC 0.000 Nucleated RBC % 0.0 Puncture Site Left radial ABG pH 7.377 ABG pCO2 49.2 H ABG pO2 97.2 ABG PO2/FiO2 Ratio 3.24 ABG HCO3 28.3 H ABG O2 Saturation 97.2 ABG O2 Content 19.1 ABG Base Excess 2.3 A-a Gradient 58.9 Oxyhemoglobin 97.3 Total Hemoglobin 13.9 O2 Delivery Device Bipap O2 Liters/Min Not Reportable FiO2 30 Expiratory Pressure 8 Inspiratory Pressure 16 Sodium 134 L Potassium 3.8 Chloride 93 L Carbon Dioxide 34 H Anion Gap 7 BUN 22 H Creatinine 0.74 Estim Creat Clear Calc 100 Estimated GFR > 60 Glucose 111 H Calcium 8.4 Quality VTE Prophylaxis VTE prophylaxis: mechanical ordered and pharmacologic ordered
[2024-03-21] MEDS: ACETAMINOPHEN 500 MG TABLET 1000 MG PO ×2 (12:55→20:10)
--- NOTE | 2024-03-21 12:56 | P.CONPL_ITS ---
Assessment and Plan Assessment and plan (1) Flu: Code(s): J11.1 - Influenza due to unidentified influenza virus with other respiratory manifestations Status: Acute Assessment and Plan: Patient's has been sick and he developed the flu. Influenza a RT PCR study positive on 03/20/2024. Started on Tamiflu 03/20/24. 03/21/2024: today the patient tells me he is 75% better. He has been on continuous BiPAP other than meals and we takes the BiPAP off he oxygenates well on 3 L nasal cannula. He tells me the BiPAP is somewhat uncomfortable and I changed him to a noninvasive ventilation with the AVAPS mode and adjusted settings to come for resulting in a rate of 14, tidal volume 500, EPAP 9, minimal inspiratory pressure 10, maximal inspiratory pressure 25, inspiratory time 0.8, rise of 1 the fastest and 30% FiO2. Plan: Patient tells me he is breathing better, 75% back to his baseline. Leukocytosis has improved and he is afebrile. Continue Tamiflu, day 2. Patient will require at least 5 days of Tamiflu and will reassess clinically to determine if his disease is severe enough to warrant 10 days. Chest x-ray with no evidence of focal infiltrates. AVAPS with the above settings p.r.n.. will follow with you. (2) COPD (chronic obstructive pulmonary disease): Qualifiers: COPD type: emphysema Emphysema type: unspecified Qualified Code(s): J 43.9 - Emphysema, unspecified Code(s): J44.9 - Chronic obstructive pulmonary disease, unspecified Status: Acute Assessment and Plan: Gold grade 4 group D COPD The patient is maintained on Symbicort and Spiriva. PFTs 11/08/2018 with an FEV1 of 0.89 L. 27%, negative bronchodilator response, air trapping, moderately decreased DLCO that was increased when adjusted for alveolar volume. P.r.n. oxygen during the day. Uses BiPAP 23/16 with 2 L bleed in at night for his obstructive sleep apnea. 03/21/24: currently the patient states he has improved. He has influenza pneumonia but no evidence of COPD exacerbation. Blood gas on BiPAP 7.38/49/97. Plan: I will place the patient on Levalbuterol 1.25 mg Q 6 hours and ipratropium nebulizer 0.5 mg q.6 hours. I will hold off on inhaled steroids as the patient has influenza pneumonia. I will continue noninvasive ventilation with the AVAPS mode PRN. Goal saturation 90-94%. (3) Obstructive sleep apnea: Code(s): G47.33 - Obstructive sleep apnea (adult) (pediatric) Status: Acute Assessment and Plan: Patient with obstructive sleep apnea on BiPAP with 2 L bleed in with pressures 23/16. Plan: I will continue noninvasive ventilation with the AVAPS mode. History of Present Illness History of Present Illness Consult date: 03/21/24 Chief complaint: FLU+/COPD Exacerbation/RAFI Narrative: 03/21/2024: This is a new pulmonary consult for influenza a with hypoxic respiratory failure. 74-year-old man with a history of hypertension, hyperlipidemia, morbid obesity, paralyzed left hemidiaphragm, COPD, obstructive sleep apnea on BiPAP 23/16 with 2 L bleed in and tobacco use. Patient is followed in the [facility] in last seen on 11/23/2023: Here is this note. 1 year follow-up regarding COPD and LIZZY on BiPAP w/2L O2. He reports he is doing well with his breathing, no ER visits or flareups. He feels his symptoms have been stable. Denies any excessive coughing or sputum production. Denies fever, hemoptysis, chest pains/tightness, or nighttime breathing issues. Main complaint is more anxiety lately that he feels does affect his breathing. He is on medications for anxiety. He will then get on BiPAP which helps. BiPAP usage has been more over the past year. He is compliant with it when asleep. He is maintained on Symbicort and Spiriva, doing well with this. Combivent PRN. He does have oxygen in the home that he uses if his saturations are below 90%.? He does keep track of this. Has O2 bleed-in with BiPAP. Hasn't used it during the day often. He admits to smoking cigarettes 1/2ppd; does smoked marijuana for anxiety.? CAT score 19/40, was 18/40 last visit. Patient presented to the emergency department on 03/20/2024 with shortness of breath. His had the flu 1 week ago. His worsening symptoms let him to use continuous BiPAP at home. Presented to the emergency department with a blood pressure 190/102, heart rate 130, respirations 22 and on BiPAP be was 100% saturated. His white blood cell count was 15.0, eosinophils 0.7%. Creatinine was 0.73, BNP was 2 114. Influenza a RT PCR study positive with a negative COVID and negative RSV and influenza B. on BiPAP rate of 16, pressure 16/8 and 80% patient's blood gas was 7.38/50/378. Approximately 6 hours later blood gas on BiPAP 16/8 and 30% was 7.38/49/97. He was given 1 dose of Solu-Medrol in the emergency room for that has been discontinued. Patient was started on Tamiflu and Incruse. 03/21/2024: today the patient tells me he is 75% better. He has been on continuous BiPAP other than meals and we takes the BiPAP off he oxygenates well on 3 L nasal cannula. He tells me the BiPAP is somewhat uncomfortable and I changed him to a noninvasive ventilation with the AVAPS mode and adjusted settings to come for resulting in a rate of 14, tidal volume 500, EPAP 9, minimal inspiratory pressure 10, maximal inspiratory pressure 25, inspiratory time 0.8, rise of 1 the fastest and 30% FiO2. DATA PFT 11/08/18 - extremely severe obstructive ventilatory defect with good bronchodilator response especially in the small airways. Moderate restrictive defect with air trapping. Severe increase in airway resistance. Moderate diffusion defect. FEV1 0.89L, FEV1/FVC 47% pred. He was very dizzy and near syncope doing the PFT. 11/08/2018 - Six min walk - no O2 needed with exertion, walked 800 feet. 11/08/2018 : echo - poor study, EF 60-65%, grade I diastolic dysfunction, mild aortic stenosis, mild pulmonary hypertension RVSP 41 mm Hg. Trace Pulmonary regurg. RV chamber not well seen. BiPAP Titration 03/2014 optimum pressure of BiPAP was achieved at 23/16 with relatively good sleep efficiency and stabilization of oxygen saturation. He was also given an additional 3 L of oxygen with this. Review of Systems 2 Constitutional: Constitutional: Reports no additional constitutional complaints Eyes: Eyes: Reports no additional eye complaints ENT: Reports system reviewed and no additional complaints, except as documented Cardiovascular: Cardiovascular: Reports no additional cardiovascular complaints Respiratory: Respiratory: Reports no additional respiratory complaints Gastrointestinal: Gastrointestinal: Reports no additional gastrointestinal complaints Musculoskeletal: Musculoskeletal: Reports no additional musculoskeletal complaints Neurologic: Reports system reviewed and no additional complaints, except as documented Psychiatric: Psychiatric: Reports no additional psychiatric complaints Endocrine: Endocrine: Reports no additional endocrine complaints Hematologic/Lymphatic: Hematologic/Lymphatic: Reports no additional hematologic/lymphatic complaints Allergic/Immunologic: Allergic/Immunologic: Reports no additional allergic/immunologic complaints [facility] Past Medical History Medical History Stridor Hoarseness History of tobacco abuse Obstructive sleep apnea Shortness of Breath Diaphragm paralysis Anxiety COPD (chronic obstructive pulmonary disease) Asthma Hyperlipidemia HTN (hypertension) Surgical History Surgical History History of carpal tunnel surgery Family History Family History Father Mother Twisting of colon on long axis Social History Social History Social History: Quit smoking 2019 but reports he smoking a cigarette very rarely., engages in vaping and marijuana Smoking packs per day: 0.75 Smoking cigarettes per day: 15.0 Smoking status: Current every day smoker Tobacco type: cigarettes Second hand tobacco smoke exposure: Yes Additional smoking assessment comments: 30 Alcohol intake: never Substance use: current Substance use type: marijuana Other substance usage details: gummies Do You Feel Safe in your Home?: Yes Lack of Transportation: No Lack of Food: Never True Current Housing: I Have Housing Concerned About Future Housing: No Difficulty Paying Gas/Electric Bills: No Difficulty Paying for Meds: No Currently Unemployed: No Education: Trade/Vocational Certificate Difficulty w/ Childcare or Family Care: No Living arrangements: with family Occupation/Education: retired 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 Gender identity (if verbalized by the patient): Male Spiritual care concerns: No Meds Home Medications and Allergies Home Medications ?Medication ?Instructions ?Recorded ?Confirmed ?Type albuterol sulfate 2.5 mg/3 mL 2.5 mg (3 mL) inhalation Q4-6H PRN 07/23/20 03/20/24 Rx (0.083 %) solution for nebulization shortness of breath or wheezing 90 days #1,080 mL buspirone 15 mg tablet 15 mg PO QAM #90 tabs 04/11/23 03/20/24 Rx phenytoin sodium extended 100 mg 200 mg PO Q12H 06/13/23 03/20/24 History capsule triamterene 37.5 See Rx Instructions .Route 08/14/23 03/20/24 Rx mg-hydrochlorothiazide 25 mg .COMPLEX #90 caps capsule budesonide-formoterol HFA 80 2 puff inhalation Q12H 90 days 11/23/23 03/20/24 Rx mcg-4.5 mcg/actuation aerosol #30.6 grams inhaler (Symbicort) Incruse Ellipta 62.5 mcg/actuation 1 inh inhalation Q24H #30 ea 02/10/24 03/20/24 Rx powder for inhalation (umeclidinium) Incruse Ellipta 62.5 mcg/actuation 1 inh inhalation Q24H 90 days #90 02/10/24 03/20/24 Rx powder for inhalation ea (umeclidinium) albuterol sulfate 90 mcg/actuation See Rx Instructions .Route 02/14/24 03/20/24 Rx aerosol inhaler .COMPLEX #51 grams acetaminophen 500 mg capsule 1,000 mg PO Q12H 03/20/24 03/20/24 History amitriptyline 50 mg tablet 50 mg PO HS 03/20/24 03/20/24 History cyanocobalamin (vitamin B-12) 1,000 mcg PO DAILY 03/20/24 03/20/24 History 1,000 mcg tablet (Vitamin B-12) omega 6-fpm-sxc-fish oil 1,000 mg 1 cap PO DAILY 03/20/24 03/20/24 History (120 mg-180 mg) capsule (Fish Oil) simvastatin 10 mg tablet 10 mg PO HS 03/20/24 03/20/24 History venlafaxine 75 mg capsule,extended 75 mg PO HS 03/20/24 03/20/24 History release 24 hr venlafaxine 75 mg tablet 150 mg PO QAM 03/20/24 03/20/24 History Allergies Allergy/AdvReac Type Severity Reaction Status Date / Time ibuprofen Allergy Intermediate Itching Verified 03/20/24 12:08 Vital Signs Vital Signs - 24 hr 03/20/24 14:00 03/20/24 15:20 03/20/24 15:20 Temperature Pulse Rate 114 H 100 Respiratory Rate 26 H Blood Pressure Pulse Oximetry 94 Oxygen Delivery BiPAP Fraction of Inspired Oxygen 30 03/20/24 15:42 03/20/24 16:00 03/20/24 16:00 Temperature 37.1 C Pulse Rate 117 H 117 H 109 H Respiratory Rate 24 H 24 H Blood Pressure 146/98 H Pulse Oximetry 98 98 Oxygen Delivery BiPAP Fraction of Inspired Oxygen 30 03/20/24 18:00 03/20/24 20:00 03/20/24 20:00 Temperature Pulse Rate 116 H 105 H 105 H Respiratory Rate 26 H Blood Pressure Pulse Oximetry 99 Oxygen Delivery BiPAP Fraction of Inspired Oxygen 30 03/20/24 20:52 03/20/24 20:53 03/20/24 20:53 Temperature 37.0 C Pulse Rate 101 H 101 H 101 H Respiratory Rate 24 H 29 H 29 H Blood Pressure 144/94 H Pulse Oximetry 100 99 Oxygen Delivery BiPAP Fraction of Inspired Oxygen 03/20/24 20:59 03/20/24 22:00 03/20/24 23:40 Temperature Pulse Rate 100 93 92 Respiratory Rate 26 H 25 H Blood Pressure Pulse Oximetry 98 Oxygen Delivery BiPAP Fraction of Inspired Oxygen 03/20/24 23:50 03/20/24 23:52 03/20/24 23:52 Temperature 36.4 C L Pulse Rate 99 98 98 Respiratory Rate 21 H 21 H Blood Pressure 134/55 L Pulse Oximetry 97 100 Oxygen Delivery BiPAP Fraction of Inspired Oxygen 30 03/21/24 02:00 03/21/24 02:31 03/21/24 02:31 Temperature Pulse Rate 84 95 95 Respiratory Rate 21 H 21 H Blood Pressure Pulse Oximetry 100 Oxygen Delivery BiPAP Fraction of Inspired Oxygen 03/21/24 02:36 03/21/24 03:22 03/21/24 03:49 Temperature 36.6 C Pulse Rate 96 93 92 Respiratory Rate 21 H 22 H 22 H Blood Pressure 116/96 H Pulse Oximetry 97 99 Oxygen Delivery BiPAP Fraction of Inspired Oxygen 30 03/21/24 03:49 03/21/24 06:00 03/21/24 07:58 Temperature Pulse Rate 92 80 Respiratory Rate Blood Pressure Pulse Oximetry 97 Oxygen Delivery BiPAP Fraction of Inspired Oxygen 30 03/21/24 07:58 03/21/24 07:59 03/21/24 08:00 Temperature 36.8 C Pulse Rate 80 80 104 H Respiratory Rate 20 21 H 24 H Blood Pressure 115/84 Pulse Oximetry 97 97 Oxygen Delivery BiPAP Fraction of Inspired Oxygen 03/21/24 08:00 03/21/24 08:00 03/21/24 10:00 Temperature Pulse Rate 104 H 83 95 Respiratory Rate 24 H Blood Pressure Pulse Oximetry 97 Oxygen Delivery BiPAP Fraction of Inspired Oxygen 30 03/21/24 12:00 Temperature 36.7 C Pulse Rate 89 Respiratory Rate 24 H Blood Pressure 133/80 Pulse Oximetry 97 Oxygen Delivery Fraction of Inspired Oxygen Exam 2 Const: General: cooperative, healthy appearing and comfortable O rientation/consciousness: oriented to person, oriented to place and oriented to time HENMT: Head: normal to inspection Ears: hearing grossly normal bilaterally Eyes: General: appearance normal, both eyes and all related structures Neck: Neck: normal visual inspection Chest: Chest palpation & inspection: normal inspection of the chest Resp: Effort & Inspection: normal respiratory effort and able to speak in complete sentences Auscultation: no crackles, no rales, no rhonchi, no wheezes and lung sounds not diminished Other: On bipap, no wheezing Cardio: Jugular venous distension: no JVD GI: Inspection: normal to inspection GI Palp: No abdominal tenderness Skin: General skin exam: normal color Neuro: General: oriented to person, oriented to place and oriented to time Extrem: General: normal to inspection Psych: Appearance: grossly normal Results Laboratory Findings 03/21/24 05:28 03/21/24 05:28 ABG, PT/INR, D-dimer: ABG ABG pH 7.377 (7.350-7.450) 03/20/24 13:04 ABG pCO2 49.2 mmHg (35.0-45.0) H 03/20/24 13:04 ABG pO2 97.2 mmHg (80.0-100.0) 03/20/24 13:04 ABG O2 Saturation 97.2 % (95.0-100.0) 03/20/24 13:04 PT/INR, D-dimer PT 13.0 Seconds (11.1-14.7) 03/20/24 08:05 INR 1.0 03/20/24 08:05 Abnormal lab findings: Abnormal Labs 03/20/24 03/20/24 03/20/24 08:05 08:20 13:04 WBC 15.0 H RBC 4.47 L Hgb 13.9 L Hct Neut % (Auto) 85.5 H Lymph % (Auto) 7.1 L [place] % (Auto) [place] # (Auto) 0.9 H Abs Immat Gran (auto) 0.08 H Absolute Neuts (auto) 12.9 H ABG pCO2 50.2 H 49.2 H ABG pO2 378.2 H ABG HCO3 28.7 H 28.3 H Sodium 136 L Chloride Carbon Dioxide Anion Gap 13 H BUN Glucose 150 H NT-Pro-B Natriuret Pep 214 H Total Protein 9.0 H Influenza A (RT-PCR) Positive A 03/21/24 05:28 WBC 10.4 H RBC 3.68 L Hgb 11.8 L Hct 36.0 L Neut % (Auto) Lymph % (Auto) 17.1 L [place] % (Auto) 10.2 H [place] # (Auto) 1.1 H Abs Immat Gran (auto) 0.04 H Absolute Neuts (auto) 7.4 H ABG pCO2 ABG pO2 ABG HCO3 Sodium 134 L Chloride 93 L Carbon Dioxide 34 H Anion Gap BUN 22 H Glucose 111 H NT-Pro-B Natriuret Pep Total Protein Influenza A (RT-PCR) Diagnostic Findings Additional studies: ITS Impressions Chest X-Ray 03/20/24 09:10 Impression: Mild bibasilar pulmonary edema/atelectasis with minimal pleural effusions. Underlying COPD and stable elevation left hemidiaphragm. Chest X-Ray 03/20/24 13:30 IMPRESSION: 1. Chronic elevation of left hemidiaphragm with mild atelectasis at left lung base.
--- NOTE | 2024-03-21 13:01 | P.CONCA_ITS ---
Assessment and Plan Assessment and plan (1) Acute respiratory distress: Code(s): R06.03 - Acute respiratory distress Status: Acute Plan 1. Influenza A 2. Acute hypoxic respiratory failure 3. COPD 4. LIZZY 5. Hypertension PLAN: -Clinically, patient does not appear to be in decompensated heart failure. Would hold off on giving further Lasix at this time. Echocardiogram ordered, will follow up on results. History of Present Illness History of Present Illness Consult date/time: 03/21/24 13:01 Requesting physician: Yvonne Marquez APRN Consult reason: Other (Pulmonary edema ) Reason For Visit: FLU+/COPD Exacerbation/RAFI Narrative: We are consulted for possible CHF. This is a 74 year old male with hypertension, COPD, LIZZY who presented with shortness of breath. has been sick for past couple of days. Found to have Influenza A, hypoxic respiratory failure requiring BIPAP. Workup shows WBC of 15, negative troponin, NT pro BNP of 214. CXR with mild bibasilar pulmonary edema or atelectasis, minimal pleural effusion, underlying COPD with elevation of left hemidiaphragm. EKG with sinus tachycardia, incomplete RBBB. Given doses of IV Lasix for possible CHF. Review of Systems 2 Review of Systems: All systems reviewed & are unremarkable except as noted in HPI and below (HPI) [facility] Past Medical History Medical History Stridor Hoarseness History of tobacco abuse Obstructive sleep apnea Shortness of Breath Diaphragm paralysis Anxiety COPD (chronic obstructive pulmonary disease) Asthma Hyperlipidemia HTN (hypertension) Surgical History Surgical History History of carpal tunnel surgery Family History Family History Father Mother Twisting of colon on long axis Social History Social History Social History: Quit smoking 2019 but reports he smoking a cigarette very rarely., engages in vaping and marijuana Smoking packs per day: 0.75 Smoking cigarettes per day: 15.0 Smoking status: Current every day smoker Tobacco type: cigarettes Second hand tobacco smoke exposure: Yes Additional smoking assessment comments: 30 Alcohol intake: never Substance use: current Substance use type: marijuana Other substance usage details: gummies Do You Feel Safe in your Home?: Yes Lack of Transportation: No Lack of Food: Never True Current Housing: I Have Housing Concerned About Future Housing: No Difficulty Paying Gas/Electric Bills: No Difficulty Paying for Meds: No Currently Unemployed: No Education: Trade/Vocational Certificate Difficulty w/ Childcare or Family Care: No Living arrangements: with family Occupation/Education: retired 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 Gender identity (if verbalized by the patient): Male Spiritual care concerns: No Meds Home Medications and Allergies Home Medications ?Medication ?Instructions ?Recorded ?Confirmed ?Type albuterol sulfate 2.5 mg/3 mL 2.5 mg (3 mL) inhalation Q4-6H PRN 07/23/20 03/20/24 Rx (0.083 %) solution for nebulization shortness of breath or wheezing 90 days #1,080 mL buspirone 15 mg tablet 15 mg PO QAM #90 tabs 04/11/23 03/20/24 Rx phenytoin sodium extended 100 mg 200 mg PO Q12H 06/13/23 03/20/24 History capsule triamterene 37.5 See Rx Instructions .Route 08/14/23 03/20/24 Rx mg-hydrochlorothiazide 25 mg .COMPLEX #90 caps capsule budesonide-formoterol HFA 80 2 puff inhalation Q12H 90 days 11/23/23 03/20/24 Rx mcg-4.5 mcg/actuation aerosol #30.6 grams inhaler (Symbicort) Incruse Ellipta 62.5 mcg/actuation 1 inh inhalation Q24H #30 ea 02/10/24 03/20/24 Rx powder for inhalation (umeclidinium) Incruse Ellipta 62.5 mcg/actuation 1 inh inhalation Q24H 90 days #90 02/10/24 03/20/24 Rx powder for inhalation ea (umeclidinium) albuterol sulfate 90 mcg/actuation See Rx Instructions .Route 02/14/24 03/20/24 Rx aerosol inhaler .COMPLEX #51 grams acetaminophen 500 mg capsule 1,000 mg PO Q12H 03/20/24 03/20/24 History amitriptyline 50 mg tablet 50 mg PO HS 03/20/24 03/20/24 History cyanocobalamin (vitamin B-12) 1,000 mcg PO DAILY 03/20/24 03/20/24 History 1,000 mcg tablet (Vitamin B-12) omega 6-tud-eof-fish oil 1,000 mg 1 cap PO DAILY 03/20/24 03/20/24 History (120 mg-180 mg) capsule (Fish Oil) simvastatin 10 mg tablet 10 mg PO HS 03/20/24 03/20/24 History venlafaxine 75 mg capsule,extended 75 mg PO HS 03/20/24 03/20/24 History release 24 hr venlafaxine 75 mg tablet 150 mg PO QAM 03/20/24 03/20/24 History Allergies Allergy/AdvReac Type Severity Reaction Status Date / Time ibuprofen Allergy Intermediate Itching Verified 03/20/24 12:08 Vital Signs Vital Signs - 24 hr 03/20/24 14:00 03/20/24 15:20 03/20/24 15:20 Temperature Pulse Rate 114 H 100 Respiratory Rate 26 H Blood Pressure Pulse Oximetry 94 Oxygen Delivery BiPAP Fraction of Inspired Oxygen 03/20/24 15:42 03/20/24 16:00 03/20/24 16:00 Temperature 37.1 C Pulse Rate 117 H 117 H 109 H Respiratory Rate 24 H 24 H Blood Pressure 146/98 H Pulse Oximetry 98 98 Oxygen Delivery BiPAP Fraction of Inspired Oxygen 30 03/20/24 18:00 03/20/24 20:00 03/20/24 20:00 Temperature Pulse Rate 116 H 105 H 105 H Respiratory Rate 26 H Blood Pressure Pulse Oximetry 99 Oxygen Delivery BiPAP Fraction of Inspired Oxygen 30 03/20/24 20:52 03/20/24 20:53 03/20/24 20:53 Temperature 37.0 C Pulse Rate 101 H 101 H 101 H Respiratory Rate 24 H 29 H 29 H Blood Pressure 144/94 H Pulse Oximetry 100 99 Oxygen Delivery BiPAP Fraction of Inspired Oxygen 03/20/24 20:59 03/20/24 22:00 03/20/24 23:40 Temperature Pulse Rate 100 93 92 Respiratory Rate 26 H 25 H Blood Pressure Pulse Oximetry 98 Oxygen Delivery BiPAP Fraction of Inspired Oxygen 03/20/24 23:50 03/20/24 23:52 03/20/24 23:52 Temperature 36.4 C L Pulse Rate 99 98 98 Respiratory Rate 21 H 21 H Blood Pressure 134/55 L Pulse Oximetry 97 100 Oxygen Delivery BiPAP Fraction of Inspired Oxygen 30 03/21/24 02:00 03/21/24 02:31 03/21/24 02:31 Temperature Pulse Rate 84 95 95 Respiratory Rate 21 H 21 H Blood Pressure Pulse Oximetry 100 Oxygen Delivery BiPAP Fraction of Inspired Oxygen 03/21/24 02:36 03/21/24 03:22 03/21/24 03:49 Temperature 36.6 C Pulse Rate 96 93 92 Respiratory Rate 21 H 22 H 22 H Blood Pressure 116/96 H Pulse Oximetry 97 99 Oxygen Delivery BiPAP Fraction of Inspired Oxygen 30 03/21/24 03:49 03/21/24 06:00 03/21/24 07:58 Temperature Pulse Rate 92 80 Respiratory Rate Blood Pressure Pulse Oximetry 97 Oxygen Delivery BiPAP Fraction of Inspired Oxygen 30 03/21/24 07:58 03/21/24 07:59 03/21/24 08:00 Temperature 36.8 C Pulse Rate 80 80 104 H Respiratory Rate 20 21 H 24 H Blood Pressure 115/84 Pulse Oximetry 97 97 Oxygen Delivery BiPAP Fraction of Inspired Oxygen 03/21/24 08:00 03/21/24 08:00 03/21/24 10:00 Temperature Pulse Rate 104 H 83 95 Respiratory Rate 24 H Blood Pressure Pulse Oximetry 97 Oxygen Delivery BiPAP Fraction of Inspired Oxygen 30 03/21/24 12:00 Temperature 36.7 C Pulse Rate 89 Respiratory Rate 24 H Blood Pressure 133/80 Pulse Oximetry 97 Oxygen Delivery Fraction of Inspired Oxygen Exam 2 Const: General: no acute distress Eyes: General: appearance normal, both eyes and all related structures S clera: sclerae normal Resp: Effort & Inspection: normal respiratory effort Auscultation: d iminished lung sounds Other: On BIPAP Cardio: Rate: regular rate Rhythm: regular rhythm Heart sounds: no murmurs Other: No lower extremity edema Skin: General skin exam: normal color Neuro: Speech: normal speech Psych: Mental Status: mental status grossly normal Affect: normal affect Results Labs and Meds 03/21/24 05:28 03/21/24 05:28 Lab results: CBC 03/21/24 Range/Units 05:28 WBC 10.4 H (4.5-10.0) K/mm3 RBC 3.68 L (4.6-6.20) M/mm3 Hgb 11.8 L (14.0-18.0) g/dL Hct 36.0 L (42.0-52.0) % Plt Count 235 (150-375) k/mm3 Lymph # (Auto) 1.78 (0.9-3.2) K/mm3 [place] # (Auto) 1.1 H (0.1-0.6) K/mm3 Eos # (Auto) 0.0 (0-0.3) K/mm3 Baso # (Auto) 0.0 (0.0-0.1) K/mm3 Comprehensive Metabolic Panel 03/21/24 Range/Units 05:28 Sodium 134 L (137-145) mmol/L Potassium 3.8 (3.4-5.0) mmol/L Chloride 93 L (98-107) mmol/L Carbon Dioxide 34 H (22-30) mmol/L BUN 22 H (9-20) mg/dL Creatinine 0.74 (0.7-1.3) mg/dL Glucose 111 H (65-110) mg/dL Calcium 8.4 (8.4-10.2) mg/dL Intake and Output 03/20/24 03/21/24 03/21/24 23:59 07:59 15:59 Intake Total 350 1000 320 Output Total 800 400 200 Balance -450 600 120 Intake: Oral 350 1000 320 Output: Urine 800 400 200 Other: # Unmeasured Voids 1 Patient Weight 03/21/24 23:59 Weight 110.4 kg
--- NOTE | 2024-03-21 13:42 | ECHO_ITS ---
Patient Info Name: Scot Watson Age: 74 years : 1950 Gender: Male Ht: 72 in Wt: 243 lbs BSA: 2.40 m2 HR: 80 bpm BP: 116 / 96 mmHg Technical Quality: Good Exam Date: 03/21/2024 1:17 PM Exam Location: Echo Lab Exam Room: [facility] Patient Status: Inpatient Admit Date: 03/20/2024 Staff Ordering Physician: Yvonne Marquez APRN [employer] Developer: Melody Wray RDCS Attending Provider: Tarik Riley MD Referring Physician: Jimmy SWAN; Exam Type: CA echo doppler color flow Study Info Indications - Pulmonary edema Complete two-dimensional, color flow and Doppler transthoracic echocardiogram is performed. Summary 1. Complete two-dimensional, color flow and Doppler transthoracic echocardiogram is performed. 2. Left ventricular chamber dimension is normal. 3. Left ventricular systolic function is normal, estimated at 65-70%. 4. The left ventricular diastolic function is grade I diastolic dysfunction. 5. E/e' 10 is mildly elevated. 6. Left atrial chamber dimension is mildly enlarged. 7. There is moderate aortic valve sclerosis. 8. There is moderate aortic valve stenosis with a peak velocity of 458 cm/s, mean gradient of 46 mmHg, and aortic valve area of 1.1 cm2. 9. Dilated inferior vena cava with >50% collapse upon inspiration consistent with elevated right atrial pressure, 10 mmHg. Left Ventricle E/e' 10 is mildly elevated. Left ventricular chamber dimension is normal. Left ventricular systolic function is normal, estimated at 65-70%. The left ventricular diastolic function is grade I diastolic dysfunction. Right Ventricle Right ventricular systolic function is normal and with normal TAPSE 2.7 cm. Right ventricular chamber dimension is normal. Left Atria Left atrial chamber dimension is mildly enlarged. Right Atria Right atrial chamber dimension is normal. Aortic Valve The aortic valve is trileaflet. There is moderate aortic valve sclerosis. There is moderate aortic valve stenosis with a peak velocity of 458 cm/s, mean gradient of 46 mmHg, and aortic valve area of 1.1 cm2. There is no aortic valve regurgitation. Pulmonic Valve There is no pulmonic regurgitation. Mitral Valve There is no mitral valve stenosis. There is no mitral valve regurgitation. Tricuspid Valve There is no tricuspid valve regurgitation. Pericardium/Pleural There is no pericardial effusion. Inferior Vena Cava Dilated inferior vena cava with >50% collapse upon inspiration consistent with elevated right atrial pressure, 10 mmHg. Aorta The aortic root size at the sinus of Valsalva is normal. Left Ventricular Outflow Tract Name Value Normal LVOT 2D LVOT Diameter 2.7 cm LVOT Doppler LVOT Peak Gradient 4 mmHg LVOT Mean Gradient 2 mmHg LVOT VTI 17 cm LVOT VTI/AV VTI Ratio 0.2 LVOT Stroke Volume 100 ml LVOT CO 8.2 l/min LVOT CI 3.4 l/min/m2 Pulmonic Valve Name Value Normal PV Doppler PV Peak Gradient 7 mmHg Mitral Valve Name Value Normal MV Doppler MV Peak Gradient 7 mmHg MV Mean Gradient 2 mmHg MV Decel Donley 245 cm/s2 MV PHT 80 ms MV Area (PHT) 2.7 cm2 4.0-5.0 MV Area (Cont Eq VTI) 4.2 cm2 MV Diastolic Function MV E Peak Velocity 68 cm/s MV A Peak Velocity 112 cm/s MV E/A 0.6 MV Decel Time 277 ms MV Annular TDI MV E/e' (Septal) 12.6 <=8.0 MV E/e' (Lateral) 9.1 <=8.0 MV E/e' (Average) 10.8 Tricuspid Valve Name Value Normal Estimated PAP/RSVP RA Pressure 10 mmHg <=5 Aortic Valve Name Value Normal AV Doppler AV Peak Velocity 458 cm/s AV Peak Gradient 76 mmHg AV Mean Gradient 46 mmHg AV VTI 91 cm AV Area (Cont Eq VTI) 1.1 cm2 >=3.0 AV Area (Cont Eq Braxton) 1.4 cm2 AV Regurgitation 2D LVOT Area 5.8 cm2 Ventricles Name Value Normal LV Dimensions 2D/MM IVS Diastolic Thickness (2D) 1.1 cm 0.6-1.0 LVID Diastole (2D) 4.8 cm 4.2-5.8 LVIW Diastolic Thickness (2D) 1.0 cm 0.6-1.0 LVID Systole (2D) 3.1 cm 2.5-4.0 LVOT Diameter 2.7 cm LV Mass (2D Cubed) 184.44 g 88.00-224.00 LV Mass Index (2D Cubed) 77 g/m2 49-115 Relative Wall Thickness (2D) 0.42 LV Fractional Shortening/Ejection Fraction 2D/MM LV Fractional Shortening (2D) 36 % 25-43 LV EF (2D Teicholz) 65 % 52-72 LV Diastolic Volume (4C MOD) 110 ml LV EF (4C MOD) 69 % LV Diastolic Volume (2C MOD) 127 ml LV EF (2C MOD) 72 % LV Diastolic Volume (BP MOD) 121 ml 62-150 LV Diastolic Volume Index (BP MOD) 51 ml/m2 34-74 LV Systolic Volume (BP MOD) 35 ml 21-61 LV Systolic Volume Index (BP MOD) 15 ml/m2 11-31 LV EF (BP MOD) 71 % 52-72 LV Diastolic Length (4C) 8.7 cm LV Systolic Length (4C) 8.0 cm LV Stroke Volume (4C MOD) 76 ml LV CO (BP MOD) 8.1 l/min LV CI (BP MOD) 3.4 l/min/m2 Atria Name Value Normal RA Dimensions RA Area (4C) 19.3 cm2 <=18.0 Report Signatures
[2024-03-21] MEDS: ALBUTEROL SULFATE (*SP) AEROSOL 1 PUFF INHALATION (15:14)
--- NOTE | 2024-03-21 18:12 | PC.NURSE ---
Spoke with Dr. Gonzalez regarding pt wanting more fluids. RN reiterated to pt about his fluid restriction, and that he has already has the allotted amount of free water for the 24 hour period. New order to increase fluid restriction amount to 2000ml/24hr, and to discuss fluid restriction diet with CEO that is covering pt's case tomorrow. Order entered by this RN
[2024-03-21] MEDS: SIMVASTATIN 10 MG TABLET PO (20:09)
[2024-03-21] MEDS: VENLAFAXINE HCL XR 75 MG CAP.ER.24H PO (20:09)
[2024-03-21] MEDS: AMITRIPTYLINE HCL 25 MG TABLET 50 MG PO (20:10)
[2024-03-21] MEDS: IPRATROPIUM BR 0.02% INH SOLN 0.5 MG/2.5 ML VIAL INHALATION (21:35)
[2024-03-22] VITALS (27 sets, daily range): BP systolic 105–146; BP diastolic 50–70; PULSE 5–109; RESP 18–222; TEMP 36.4–37; O2SAT 95–100
[2024-03-22] MEDS: ACETAMINOPHEN 325 MG TABLET 650 MG PO ×2 (00:24→06:00)
[2024-03-22] MEDS: IPRATROPIUM BR 0.02% INH SOLN 0.5 MG/2.5 ML VIAL INHALATION ×4 (02:47→20:17)
[2024-03-22] MEDS: LEVALBUTEROL NEB 1.25 MG/3 ML INHALATION ×4 (02:47→20:17)
[2024-03-22] MEDS: LORazepam (*CRX) 1 MG TABLET PO ×4 (03:39→23:41)
--- NOTE | 2024-03-22 08:00 | P.PNIM_ITS ---
Progress Note: A&P Assessment and Plan (1) Acute respiratory distress: Code(s): R06.03 - Acute respiratory distress Status: Acute Assessment and Plan: Secondary to COPD exacerbation and pulmonary edema with no history of CHF Patient on BiPAP with increased respiratory distress since admission, patient wishes to be intubated for respiratory distress if needed Repeat ABG essentially the same Repeat chest x-ray wet read with increased pulmonary edema 40 IV Lasix x2 stable- karis pt is requesting to be seen per pulm. NOtes reviewed: ...75% back to his baseline. Leukocytosis has improved and he is afebrile. Continue Tamiflu, day 2. Patient will require at least 5 days of Tamiflu and will reassess clinically to determine if his disease is severe enough to warrant 10 days. Chest x-ray with no evidence of focal infiltrates. AVAPS with the above settings p.r.n. (2) Flu: Code(s): J11.1 - Influenza due to unidentified influenza virus with other respiratory manifestations Status: Acute Assessment and Plan: Tamiflu started in ED Continue for 5 days continue tamiflu (3) Chronic obstructive pulmonary disease with acute exacerbation: Code(s): J44.1 - Chronic obstructive pulmonary disease with (acute) exacerbation Status: Acute Assessment and Plan: Pulm notes reviewed: - Levalbuterol 1.25 mg Q 6 hours and ipratropium nebulizer 0.5 mg q.6 hours - hold off on inhaled steroids as the patient has influenza pneumonia - continue noninvasive ventilation with the AVAPS mode PRN - Goal saturation 90-94% (4) Pulmonary edema: Code(s): J81.1 - Chronic pulmonary edema Status: Acute Assessment and Plan: No known history of CHF, echo from 2012 shows hyperdynamic left ventricle systolic function with EF of 75% Echocardiogram ordered pending IV Lasix x2 Cardiology consulted Card notes reviewed: Clinically, patient does not appear to be in decompensated heart failure. Would hold off on giving further Lasix at this time. [place] rdiogram ordered, will follow up on results. (5) HTN (hypertension): Qualifiers: Hypertension type: essential hypertension Qualified Code(s): I10 - Essential (primary) hypertension Code(s): I10 - Essential (primary) hypertension Status: Acute Assessment and Plan: Ordered home antihypertensives (6) Hyperlipidemia: Qualifiers: Hyperlipidemia type: mixed hyperlipidemia Qualified Code(s): E78.2 - Mixed hyperlipidemia Code(s): E78.5 - Hyperlipidemia, unspecified Status: Acute Assessment and Plan: Ordered home statin (7) Anxiety: Code(s): F41.9 - Anxiety disorder, unspecified Status: Acute Assessment and Plan: Ordered home antidepressants and anxiety medication P.r.n. Ativan added monitor for now (8) Seizure: Code(s): R56.9 - Unspecified convulsions Status: Acute Assessment and Plan: Ordered home seizure meds Time Spent With Patient Time with patient: 25 - 35 minutes Subjective Date/time seen: 03/22/24 08:00 Interval history: Shortness of breath 74-year-old male with history of COPD admitted for shortness of breath. His has been sick for the past couple days. he states that his breathing was so bad last night that he thought he was going to . Unable to lay flat or on his side, he felt like he was drowning. Denies fevers chills nausea or vomiting. In ED: leukocytosis at 15.0, ABG pH 7.37, pCO2 50.2, PO2 378, HC03 28, on the BiPAP in the emergency room, anion gap 13, glucose 150, lactic acid 1.6, BNP 214, influenza A positive, influenza B, RSV, COVID negative. Chest x-ray - mild pulmonary edema versus atelectasis with pleural effusion. EKG - sinus tachycardia rate of 127 with incomplete right bundle luis block. Cardiology was consulted. Xopenex - due to tachycardia Home long-acting inhalers continued. 03/22 pt is seen and examined. Pulmonology consulted per pt' request- adjustments to BiPap. Cardiology saw pt as well- doesnot appear to be fluid overloaded. Pt is feeling better this am. Review of Systems Review of Systems: 12 systems were reviewed and are negative except for as per HPI. Exam Narrative: General: comfortable, able to speak in full sentences HEENT: normocephalic, atraumatic. Mucous membranes moist. EOMI, PERRLA, bilateral sclera anicteric, no conjunctival injection. Neck supple without JVD, lymphadenopathy, or bruit. Respiratory: Course to ascultation bilaterally. diminished. comfortable on BiPAP Cardiovascular: Tachycardic Regular rate and rhythm, normal S1-S2 upon ascultation. No murmurs, rubs, or clicks. PMI is nondisplaced, capillary refill less than 3 second. Abdomen: Soft, round, no pulsatile masses, nondistended and nontender. No rebound, no guarding. No CVA tenderness, no hepatosplenomegaly. Bowel sounds present to all four quadrants. No high pitch or tinkling sounds, resonant to percussion. Extremities: No cyanosis, clubbing, or edema present. Pulses are palpable 2/2. Active ROM to all four extremities. Neuro: Alert and orientated x 4. PERRLA. Cranial nerves 2-12 intact without focal deficit. Skin: Warm, dry, and intact, without rash, erythema, or lesion. Psych: pleasant, cooperative, normal speech, normal affect, no hallucinations, no dysarthia Objective Data Vital Signs Vital Signs: Vital Signs - 24 hr 03/21/24 10:00 03/21/24 12:00 03/21/24 12:00 Temperature 98.1 F Pulse Rate 95 89 94 Respiratory Rate 24 H 20 Blood Pressure 133/80 Pulse Oximetry 97 97 Oxygen Delivery BiPAP Fraction of Inspired Oxygen 30 03/21/24 12:00 03/21/24 13:43 03/21/24 14:00 Temperature Pulse Rate 97 94 90 Respiratory Rate 20 Blood Pressure Pulse Oximetry Oxygen Delivery Fraction of Inspired Oxygen 03/21/24 16:00 03/21/24 16:00 03/21/24 16:00 Temperature 98.1 F Pulse Rate 84 84 87 Respiratory Rate 22 H 28 H Blood Pressure 144/52 H Pulse Oximetry 95 98 Oxygen Delivery BiPAP Fraction of Inspired Oxygen 30 03/21/24 18:00 03/21/24 20:00 03/21/24 20:00 Temperature 97.7 F Pulse Rate 92 81 85 Respiratory Rate 23 H 25 H Blood Pressure 137/69 Pulse Oximetry 98 95 Oxygen Delivery BiPAP Fraction of Inspired Oxygen 30 03/21/24 20:00 03/21/24 21:51 03/21/24 21:52 Temperature Pulse Rate 85 92 92 Respiratory Rate 25 H 25 H Blood Pressure Pulse Oximetry 95 Oxygen Delivery BiPAP Fraction of Inspired Oxygen 03/21/24 21:52 03/21/24 22:00 03/21/24 22:02 Temperature Pulse Rate 92 95 Respiratory Rate 23 H Blood Pressure Pulse Oximetry 95 Oxygen Delivery BiPAP Fraction of Inspired Oxygen 30 03/21/24 23:42 03/22/24 00:00 03/22/24 00:00 Temperature 97.7 F Pulse Rate 87 82 82 Respiratory Rate 21 H 21 H Blood Pressure 139/78 Pulse Oximetry 99 99 Oxygen Delivery BiPAP Fraction of Inspired Oxygen 30 03/22/24 02:00 03/22/24 02:51 03/22/24 02:52 Temperature Pulse Rate 82 86 86 Respiratory Rate 18 18 Blood Pressure Pulse Oximetry 95 Oxygen Delivery BiPAP Fraction of Inspired Oxygen 03/22/24 03:02 03/22/24 03:51 03/22/24 03:51 Temperature Pulse Rate 89 84 84 Respiratory Rate 18 18 Blood Pressure Pulse Oximetry 95 Oxygen Delivery BiPAP Fraction of Inspired Oxygen 30 03/22/24 03:58 03/22/24 05:09 03/22/24 07:59 Temperature 97.6 F 97.9 F Pulse Rate 84 109 H 86 Respiratory Rate 20 21 H Blood Pressure 130/70 105/59 L Pulse Oximetry 98 100 Oxygen Delivery Fraction of Inspired Oxygen Intake/Output Intake/Output: Intake & Output 03/19/24 03/20/24 03/21/24 03/22/24 23:59 23:59 23:59 23:59 Intake Total 350 2650 1050 Output Total 925 1800 700 Balance -575 850 350 Meds/Results Medications: Active Medications Generic Name Dose Route Start Last Admin Trade Name Freq PRN Reason Stop Dose Admin Acetaminophen 650 mg 03/20/24 13:46 03/22/24 06:00 Acetaminophen 325 Mg Tablet PO 650 mg Q4H PRN Administration Mild Pain (1-3) or Fever Acetaminophen 1,000 mg 03/21/24 13:00 03/21/24 20:10 Acetaminophen 500 Mg Tablet PO 1,000 mg Q12HR JONATHAN Administration Albuterol 1 - 2 puff 03/21/24 10:32 03/21/24 15:14 Albuterol Sulfate (*Sp) Aerosol 1 Puff INHALATION 2 puff Q4HRT PRN Administration Shortness Of Breath Or Wheezing Amitriptyline HCl 50 mg 03/20/24 21:00 03/21/24 20:10 Amitriptyline Hcl 25 Mg Tablet PO 50 mg HS JONATHAN Administration Buspirone HCl 15 mg 03/21/24 09:00 03/21/24 08:31 Buspirone Hcl 5 Mg Tablet PO 15 mg QAM JONATHAN Administration Docusate Sodium 100 mg 03/21/24 09:00 03/21/24 08:34 Docusate Sodium 100 Mg Capsule PO Not Given DAILY JONATHAN Enoxaparin Sodium 40 mg 03/20/24 13:50 03/21/24 08:31 Enoxaparin 40 Mg/0.4 Ml Syringe SUB-Q 40 mg DAILY JONATHAN Administration Ipratropium [place] 0.5 mg 03/21/24 20:00 03/22/24 02:47 Ipratropium Br 0.02% Inh Soln 0.5 Mg/2.5 Ml Vial INHALATION 0.5 mg Q6HRT JONATHAN Administration Levalbuterol HCl 1.25 mg 03/20/24 14:00 03/22/24 02:47 Levalbuterol Neb 1.25 Mg/3 Ml INHALATION 1.25 mg Q6HRT JONATHAN Administration Lorazepam 1 mg 03/20/24 19:16 03/22/24 03:39 Lorazepam (*Crx) 1 Mg Tablet PO 1 mg Q6H PRN Administration Anxiety Oseltamivir Phosphate 75 mg 03/20/24 21:00 03/21/24 20:10 Oseltamivir Phosphate 75 Mg Capsule PO 03/24/24 21:01 75 mg Q12HR JONATHAN Administration Perflutren Lipid Microsphere 0 ml 03/20/24 13:42 Perflutren Lipid Microspheres 1.5 Ml Vial Diluted To 10 Ml Total Volume IV PUSH 03/23/24 13:42 ONCE PRN adequate visualization Protocol Phenytoin Sodium 200 mg 03/20/24 12:50 03/21/24 20:09 Phenytoin Sodium 100 Mg Extended Release Cap PO 200 mg Q12HR JONATHAN Administration Simvastatin 10 mg 03/20/24 21:00 03/21/24 20:09 Simvastatin 10 Mg Tablet PO 10 mg HS JONATHAN Administration Triamterene/Hydrochlorothiazide 1 tab 03/21/24 09:00 03/21/24 08:31 Triamterene 37.5 Mg/Hctz 25 Mg (Maxzide) Tablet PO 1 tab QAM JONATHAN Administration Venlafaxine HCl 75 mg 03/20/24 21:00 03/21/24 20:09 Venlafaxine Hcl Xr 75 Mg Cap.Er.24h PO 75 mg HS JONATHAN Administration Venlafaxine HCl 150 mg 03/20/24 12:50 03/21/24 08:31 Venlafaxine Hcl Xr 75 Mg Cap.Er.24h PO 150 mg QAM JONATHAN Administration Quality VTE Prophylaxis VTE prophylaxis: mechanical ordered and pharmacologic ordered
[2024-03-22] MEDS: ACETAMINOPHEN 500 MG TABLET 1000 MG PO ×2 (08:16→20:16)
[2024-03-22] MEDS: TRIAMTERENE 37.5 MG/HCTZ 25 MG (MAXZIDE) TABLET 1 TAB PO (08:18)
[2024-03-22] MEDS: OSELTAMIVIR PHOSPHATE 75 MG CAPSULE PO ×2 (08:18→20:16)
[2024-03-22] MEDS: VENLAFAXINE HCL XR 75 MG CAP.ER.24H 150 MG PO (08:18)
[2024-03-22] MEDS: busPIRone HCL 5 MG TABLET 15 MG PO (08:18)
[2024-03-22] MEDS: PHENYTOIN SODIUM 100 MG EXTENDED RELEASE CAP 200 MG PO ×2 (08:18→20:16)
[2024-03-22 09:28] LABS: Procalcitonin 0.1 ng/mL
[2024-03-22] MEDS: FUROSEMIDE INJ 40 MG/4 ML VIAL IV PUSH (10:05)
[2024-03-22 10:38] LABS: Anion Gap 5 mmol/L (4-12); Blood Urea Nitrogen 19 mg/dL (9-20); Calcium 8.9 mg/dL (8.4-10.2); Carbon Dioxide 36 mmol/L (22-30); Chloride 94 mmol/L (98-107); Estimated CRCL calculation 112 ml/min; Estimated Glomerular Filt Rate > 60; Glucose 138 mg/dL (65-110); Sodium 135 mmol/L (137-145)
[2024-03-22 10:57] LABS: Hematocrit 37.6 % (42.0-52.0); Hemoglobin 12.5 g/dL (14.0-18.0); Mean Corpuscular HGB Conc 33.2 g/dl (32-36); Mean Corpuscular Hemoglobin 31.6 pg (26-34); Mean Corpuscular Volume 95.2 fl (80-100); Mean Platelet Volume 8.2 fl (7.4-10.4); Platelet Count Result 218 k/mm3 (150-375); Red Blood Count 3.95 M/mm3 (4.6-6.20); Red Cell Distribution Width 12.8 % (11.5-14.5); White Blood Count 8.3 K/mm3 (4.5-10.0)
--- NOTE | 2024-03-22 12:42 | P.PNPL_ITS ---
Progress Note: A&P Assessment and Plan (1) Flu: Code(s): J11.1 - Influenza due to unidentified influenza virus with other respiratory manifestations Status: Acute Assessment and Plan: Patient's has been sick and he developed the flu. Influenza a RT PCR study positive on 03/20/2024. Started on Tamiflu 03/20/24. 03/21/2024: today the patient tells me he is 75% better. He has been on continuous BiPAP other than meals and we takes the BiPAP off he oxygenates well on 3 L nasal cannula. He tells me the BiPAP is somewhat uncomfortable and I changed him to a noninvasive ventilation with the AVAPS mode and adjusted settings to come for resulting in a rate of 14, tidal volume 500, EPAP 9, minimal inspiratory pressure 10, maximal inspiratory pressure 25, inspiratory time 0.8, rise of 1 the fastest and 30% FiO2. Plan: Patient tells me he is breathing better, 75% back to his baseline. Leukocytosis has improved and he is afebrile. Continue Tamiflu, day 2. Patient will require at least 5 days of Tamiflu and will reassess clinically to determine if his disease is severe enough to warrant 10 days. Chest x-ray with no evidence of focal infiltrates. AVAPS with the above settings p.r.n.. 03/22/2024. Patient tells me he has a little bit better. He says his lungs feel like they are clearing up. He is he is centrally remained on theNIV at all times except for taking it off for meals. Currently he is on the noninvasive ventilator 30% with saturations 98%. Plan: Patient says he is improved. Review continue Tamiflu day 3. will follow with you. (2) COPD (chronic obstructive pulmonary disease): Qualifiers: COPD type: emphysema Emphysema type: unspecified Qualified Code(s): J43.9 - Emphysema, unspecified Code(s): J44.9 - Chronic obstructive pulmonary disease, unspecified Status: Acute Assessment and Plan: Gold grade 4 group D COPD The patient is maintained on Symbicort and Spiriva. PFTs 11/08/2018 with an FEV1 of 0.89 L. 27%, negative bronchodilator response, air trapping, moderately decreased DLCO that was increased when adjusted for alveolar volume. P.r.n. oxygen during the day. Uses BiPAP with 2 L bleed in at night for his obstructive sleep apnea. 03/21/24: currently the patient states he has improved. He has influenza pneumonia but no evidence of COPD exacerbation. Blood gas on BiPAP 7.38/49/97. Plan: I will place the patient on Levalbuterol 1.25 mg Q 6 hours and ipratropium nebulizer 0.5 mg q.6 hours. I will hold off on inhaled steroids as the patient has influenza pneumonia. I will continue noninvasive ventilation with the AVAPS mode PRN. Goal saturation 90-94%. 03/22/2024: No wheezing on exam. Plan: Continue levalbuterol and ipratropium q.6 hours. Noninvasive ventilation with the AVAPS mode p.r.n.. Says he is scared to take it off. I have encouraged him to do so and told him we will monitor his saturations to make sure it is safe. (3) Obstructive sleep apnea: Code(s): G47.33 - Obstructive sleep apnea (adult) (pediatric) Status: Acute Assessment and Plan: 03/21/24: Patient with obstructive sleep apnea on BiPAP with 2 L bleed in with pressures 23/16. Plan: I will continue noninvasive ventilation with the AVAPS mode as above. Subjective Date/time seen: 03/22/24 12:42 Interval history: 03/21/2024: This is a new pulmonary consult for influenza a with hypoxic respiratory failure. 74-year-old man with a history of hypertension, hyperlipidemia, morbid obesity, paralyzed left hemidiaphragm, COPD, obstructive sleep apnea on BiPAP 23/16 with 2 L bleed in and tobacco use. Patient is followed in the [facility] in last seen on 11/23/2023: Here is this note. 1 year follow-up regarding COPD and LIZZY on BiPAP w/2L O2. He reports he is doing well with his breathing, no ER visits or flareups. He feels his symptoms have been stable. Denies any excessive coughing or sputum production. Denies fever, hemoptysis, chest pains/tightness, or nighttime breathing issues. Main complaint is more anxiety lately that he feels does affect his breathing. He is on medications for anxiety. He will then get on BiPAP which helps. BiPAP usage has been more over the past year. He is compliant with it when asleep. He is maintained on Symbicort and Spiriva, doing well with this. Combivent PRN. He does have oxygen in the home that he uses if his saturations are below 90%.? He does keep track of this. Has O2 bleed-in with BiPAP. Hasn't used it during the day often. He admits to smoking cigarettes 1/2ppd; does smoked marijuana for anxiety.? CAT score 19/40, was 18/40 last visit. Patient presented to the emergency department on 03/20/2024 with shortness of breath. His had the flu 1 week ago. His worsening symptoms let him to use continuous BiPAP at home. Presented to the emergency department with a blood pressure 190/102, heart rate 130, respirations 22 and on BiPAP be was 100% saturated. His white blood cell count was 15.0, eosinophils 0.7%. Creatinine was 0.73, BNP was 2 114. Influenza a RT PCR study positive with a negative COVID and negative RSV and influenza B. on BiPAP rate of 16, pressure 16/8 and 80% patient's blood gas was 7.38/50/378. Approximately 6 hours later blood gas on BiPAP 16/8 and 30% was 7.38/49/97. He was given 1 dose of Solu-Medrol in the emergency room for that has been discontinued. Patient was started on Tamiflu and Incruse. 03/21/2024: today the patient tells me he is 75% better. He has been on continuous BiPAP other than meals and we takes the BiPAP off he oxygenates well on 3 L nasal cannula. He tells me the BiPAP is somewhat uncomfortable and I changed him to a noninvasive ventilation with the AVAPS mode and adjusted settings to come for resulting in a rate of 14, tidal volume 500, EPAP 9, minimal inspiratory pressure 10, maximal inspiratory pressure 25, inspiratory time 0.8, rise of 1 the fastest and 30% FiO2. 03/22/2024. Patient tells me he has a little bit better. He says his lungs feel like they are clearing up. He is he is centrally remained on theNIV at all times except for taking it off for meals. Currently he is on the noninvasive ventilator 30% with saturations 98%. DATA PFT 11/08/18 - extremely severe obstructive ventilatory defect with good bronchodilator response especially in the small airways. Moderate restrictive defect with air trapping. Severe increase in airway resistance. Moderate diffusion defect. FEV1 0.89L, FEV1/FVC 47% pred. He was very dizzy and near syncope doing the PFT. 11/08/2018 - Six min walk - no O2 needed with exertion, walked 800 feet. 11/08/2018 : echo - poor study, EF 60-65%, grade I diastolic dysfunction, mild aortic stenosis, mild pulmonary hypertension RVSP 41 mm Hg. Trace Pulmonary regurg. RV chamber not well seen. BiPAP Titration 03/2014 optimum pressure of BiPAP was achieved at 23/16 with relatively good sleep efficiency and stabilization of oxygen saturation. He was also given an additional 3 L of oxygen with this. Review of Systems Constitutional: Constitutional: Reports no additional constitutional complaints Eyes: Eyes: Reports no additional eye complaints ENT: Reports system reviewed and no additional complaints, except as documented Cardiovascular: Cardiovascular: Reports no additional cardiovascular complaints Respiratory: Respiratory: Reports no additional respiratory complaints Gastrointestinal: Gastrointestinal: Reports no additional gastrointestinal complaints Musculoskeletal: Musculoskeletal: Reports no additional musculoskeletal complaints Neurologic: Reports system reviewed and no additional complaints, except as documented Psychiatric: Psychiatric: Reports no additional psychiatric complaints Endocrine: Endocrine: Reports no additional endocrine complaints Hematologic/Lymphatic: Hematologic/Lymphatic: Reports no additional hematol ogic/lymphatic complaints Allergic/Immunologic: Allergic/Immunologic: Reports no additional allergic/immunologic complaints Exam Const: General: cooperative, healthy appearing and comfortable Orientation/consciousness: oriented to person, oriented to place and oriented to time HENMT: Head: normal to inspection Ears: hearing grossly normal bilaterally Eyes: General: appearance normal, both eyes and all related structures Neck: Neck: normal visual inspection Chest: Chest palpation & inspection: normal inspection of the chest Resp: Effort & Inspection: normal respiratory effort and able to speak in complete sentences Auscultation: no crackles, no rales, no rhonchi, no wheezes and lung sounds not diminished Other: On bipap, no wheezing Cardio: Jugular venous distension: no JVD GI: Inspection: normal to inspection Skin: General skin exam: normal color Neuro: General: oriented to person, oriented to place and oriented to time Extrem: General: normal to inspection Psych: Appearance: grossly normal Objective Data Vital Signs Vital Signs: Vital Signs - 24 hr 03/21/24 13:43 03/21/24 14:00 03/21/24 16:00 Temperature Pulse Rate 94 90 84 Respiratory Rate 20 22 H Blood Pressure Pulse Oximetry 95 Oxygen Delivery BiPAP Fraction of Inspired Oxygen 30 03/21/24 16:00 03/21/24 16:00 03/21/24 18:00 Temperature 36.7 C Pulse Rate 84 87 92 Respiratory Rate 28 H Blood Pressure 144/52 H Pulse Oximetry 98 Oxygen Delivery Fraction of Inspired Oxygen 03/21/24 20:00 03/21/24 20:00 03/21/24 20:00 Temperature 36.5 C Pulse Rate 81 85 85 Respiratory Rate 23 H 25 H Blood Pressure 137/69 Pulse Oximetry 98 95 Oxygen Delivery BiPAP Fraction of Inspired Oxygen 30 03/21/24 21:51 03/21/24 21:52 03/21/24 21:52 Temperature Pulse Rate 92 92 Respiratory Rate 25 H 25 H Blood Pressure Pulse Oximetry 95 95 Oxygen Delivery BiPAP BiPAP Fraction of Inspired Oxygen 30 03/21/24 22:00 03/21/24 22:02 03/21/24 23:42 Temperature 36.5 C Pulse Rate 92 95 87 Respiratory Rate 23 H 21 H Blood Pressure 139/78 Pulse Oximetry 99 Oxygen Delivery Fraction of Inspired Oxygen 03/22/24 00:00 03/22/24 00:00 03/22/24 02:00 Temperature Pulse Rate 82 82 82 Respiratory Rate 21 H Blood Pressure Pulse Oximetry 99 Oxygen Delivery BiPAP Fraction of Inspired Oxygen 30 03/22/24 02:51 03/22/24 02:52 03/22/24 03:02 Temperature Pulse Rate 86 86 89 Respiratory Rate 18 18 18 Blood Pressure Pulse Oximetry 95 Oxygen Delivery BiPAP Fraction of Inspired Oxygen 03/22/24 03:51 03/22/24 03:51 03/22/24 03:58 Temperature 36.4 C Pulse Rate 84 84 84 Respiratory Rate 18 20 Blood Pressure 130/70 Pulse Oximetry 95 98 Oxygen Delivery BiPAP Fraction of Inspired Oxygen 30 03/22/24 05:09 03/22/24 07:59 03/22/24 08:00 Temperature 36.6 C Pulse Rate 109 H 86 90 Respiratory Rate 21 H 23 H Blood Pressure 105/59 L Pulse Oximetry 100 97 Oxygen Delivery BiPAP Fraction of Inspired Oxygen 30 03/22/24 08:00 03/22/24 08:59 03/22/24 09:15 Temperature Pulse Rate 99 88 90 Respiratory Rate 23 H 22 H Blood Pressure Pulse Oximetry Oxygen Delivery Fraction of Inspired Oxygen 03/22/24 09:15 03/22/24 09:16 03/22/24 12:00 Temperature 36.6 C Pulse Rate 90 93 Respiratory Rate 23 H 22 H Blood Pressure 105/58 L Pulse Oximetry 97 97 98 Oxygen Delivery BiPAP BiPAP Fraction of Inspired Oxygen 30 Intake/Output Intake/Output: Intake & Output 03/19/24 03/20/24 03/21/24 03/22/24 23:59 23:59 23:59 23:59 Intake Total 350 2650 1170 Output Total 925 1800 1900 Balance -575 850 -730 Meds/Results Medications: Active Medications Generic Name Dose Route Start Last Admin Trade Name Freq PRN Reason Stop Dose Admin Acetaminophen 650 mg 03/20/24 13:46 03/22/24 06:00 Acetaminophen 325 Mg Tablet PO 650 mg Q4H PRN Administration Mild Pain (1-3) or Fever Acetaminophen 1,000 mg 03/21/24 13:00 03/22/24 08:16 Acetaminophen 500 Mg Tablet PO 1,000 mg Q12HR JONATHAN Administration Albuterol 1 - 2 puff 03/21/24 10:32 03/21/24 15:14 Albuterol Sulfate (*Sp) Aerosol 1 Puff INHALATION 2 puff Q4HRT PRN Administration Shortness Of Breath Or Wheezing Amitriptyline HCl 50 mg 03/20/24 21:00 03/21/24 20:10 Amitriptyline Hcl 25 Mg Tablet PO 50 mg HS JONATHAN Administration Buspirone HCl 15 mg 03/21/24 09:00 03/22/24 08:18 Buspirone Hcl 5 Mg Tablet PO 15 mg QAM JONATHAN Administration Docusate Sodium 100 mg 03/21/24 09:00 03/22/24 08:19 Docusate Sodium 100 Mg Capsule PO Not Given DAILY JONATHAN Enoxaparin Sodium 40 mg 03/20/24 13:50 03/22/24 08:21 Enoxaparin 40 Mg/0.4 Ml Syringe SUB-Q Not Given DAILY JONATHAN Ipratropium [place] 0.5 mg 03/21/24 20:00 03/22/24 08:59 Ipratropium Br 0.02% Inh Soln 0.5 Mg/2.5 Ml Vial INHALATION 0.5 mg Q6HRT JONATHAN Administration Levalbuterol HCl 1.25 mg 03/20/24 14:00 03/22/24 08:59 Levalbuterol Neb 1.25 Mg/3 Ml INHALATION 1.25 mg Q6HRT JONATHAN Administration Lorazepam 1 mg 03/20/24 19:16 03/22/24 10:48 Lorazepam (*Crx) 1 Mg Tablet PO 1 mg Q6H PRN Administration Anxiety Oseltamivir Phosphate 75 mg 03/20/24 21:00 03/22/24 08:18 Oseltamivir Phosphate 75 Mg Capsule PO 03/24/24 21:01 75 mg Q12HR JONATHAN Administration Oxycodone HCl 5 mg 03/22/24 10:45 Oxycodone Hcl (*Crx) 5 Mg Tab Ir PO Q6H PRN Pain Rated 7-10 Perflutren Lipid Microsphere 0 ml 03/20/24 13:42 Perflutren Lipid Microspheres 1.5 Ml Vial Diluted To 10 Ml Total Volume IV PUSH 03/23/24 13:42 ONCE PRN adequate visualization Protocol Phenytoin Sodium 200 mg 03/20/24 12:50 03/22/24 08:18 Phenytoin Sodium 100 Mg Extended Release Cap PO 200 mg Q12HR JONATHAN Administration Simvastatin 10 mg 03/20/24 21:00 03/21/24 20:09 Simvastatin 10 Mg Tablet PO 10 mg HS JONATHAN Administration Triamterene/Hydrochlorothiazide 1 tab 03/21/24 09:00 03/22/24 08:18 Triamterene 37.5 Mg/Hctz 25 Mg (Maxzide) Tablet PO 1 tab QAM JONATHAN Administration Venlafaxine HCl 75 mg 03/20/24 21:00 03/21/24 20:09 Venlafaxine Hcl Xr 75 Mg Cap.Er.24h PO 75 mg HS JONATHAN Administration Venlafaxine HCl 150 mg 03/20/24 12:50 03/22/24 08:18 Venlafaxine Hcl Xr 75 Mg Cap.Er.24h PO 150 mg QAM JONATHAN Administration Radiology Results: ITS Impressions Chest X-Ray 03/22/24 08:00 Impression: [id number] left pleural effusion. Central pulmonary venous congestive change. Labs Labs: Laboratory Results - last 24 hr 03/22/24 03/22/24 08:13 10:46 WBC 8.3 RBC 3.95 L Hgb 12.5 L Hct 37.6 L MCV 95.2 MCH 31.6 MCHC 33.2 RDW 12.8 Plt Count 218 MPV 8.2 Sodium 135 L Potassium 4.0 Chloride 94 L Carbon Dioxide 36 H Anion Gap 5 BUN 19 Creatinine 0.65 L Estim Creat Clear Calc 112 Estimated GFR > 60 Glucose 138 H Calcium 8.9 Procalcitonin 0.1
[2024-03-22] MEDS: oxyCODONE HCL (*CRX) 5 MG TAB IR PO (14:59)
[2024-03-22] MEDS: AMITRIPTYLINE HCL 25 MG TABLET 50 MG PO (20:15)
[2024-03-22] MEDS: VENLAFAXINE HCL XR 75 MG CAP.ER.24H PO (20:17)
[2024-03-22] MEDS: SIMVASTATIN 10 MG TABLET PO (20:17)
[2024-03-23] VITALS (27 sets, daily range): BP systolic 113–154; BP diastolic 50–81; PULSE 81–105; RESP 14–24; TEMP 36.3–37; O2SAT 92–98
[2024-03-23] MEDS: IPRATROPIUM BR 0.02% INH SOLN 0.5 MG/2.5 ML VIAL INHALATION ×4 (01:50→22:39)
[2024-03-23] MEDS: LEVALBUTEROL NEB 1.25 MG/3 ML INHALATION ×4 (01:50→22:39)
[2024-03-23] MEDS: ACETAMINOPHEN 325 MG TABLET 650 MG PO (03:43)
[2024-03-23] MEDS: LORazepam (*CRX) 1 MG TABLET PO ×3 (05:46→20:19)
[2024-03-23] MEDS: TRIAMTERENE 37.5 MG/HCTZ 25 MG (MAXZIDE) TABLET 1 TAB PO (08:44)
[2024-03-23] MEDS: OSELTAMIVIR PHOSPHATE 75 MG CAPSULE PO ×2 (08:44→20:19)
[2024-03-23] MEDS: DOCUSATE SODIUM 100 MG CAPSULE PO (08:45)
[2024-03-23] MEDS: ACETAMINOPHEN 500 MG TABLET 1000 MG PO ×2 (08:45→20:18)
[2024-03-23] MEDS: VENLAFAXINE HCL XR 75 MG CAP.ER.24H 150 MG PO (08:45)
[2024-03-23] MEDS: ENOXAPARIN 40 MG/0.4 ML SYRINGE SUB-Q (08:46)
[2024-03-23] MEDS: busPIRone HCL 5 MG TABLET 15 MG PO (08:46)
[2024-03-23] MEDS: PHENYTOIN SODIUM 100 MG EXTENDED RELEASE CAP 200 MG PO ×2 (08:47→20:17)
[2024-03-23 08:55] LABS: Hematocrit 35.1 % (42.0-52.0); Hemoglobin 11.5 g/dL (14.0-18.0); Mean Corpuscular HGB Conc 32.8 g/dl (32-36); Mean Corpuscular Hemoglobin 31.5 pg (26-34); Mean Corpuscular Volume 96.2 fl (80-100); Mean Platelet Volume 8.5 fl (7.4-10.4); Platelet Count Result 256 k/mm3 (150-375); Red Blood Count 3.65 M/mm3 (4.6-6.20); Red Cell Distribution Width 12.8 % (11.5-14.5); White Blood Count 8.3 K/mm3 (4.5-10.0)
[2024-03-23 09:08] LABS: Anion Gap 6 mmol/L (4-12); Blood Urea Nitrogen 19 mg/dL (9-20); Carbon Dioxide 35 mmol/L (22-30); Chloride 93 mmol/L (98-107); Estimated CRCL calculation 101 ml/min; Estimated Glomerular Filt Rate > 60; Glucose 147 mg/dL (65-110); Potassium 3.8 mmol/L (3.4-5.0); Sodium 134 mmol/L (137-145)
--- NOTE | 2024-03-23 10:53 | P.PNCA_ITS ---
Progress Note: A&P Assessment and Plan (1) Acute respiratory distress: Code(s): R06.03 - Acute respiratory distress Status: Acute Plan 1. Influenza A pneumonia 2. Acute hypoxic respiratory failure 3. Acute diastolic heart failure 4. Moderate aortic stenosis 5. COPD without exacerbation 6. LIZZY 7. Hypertension PLAN: -CXR yesterday showing small-moderate left pleural effusion, central pulmonary venous congestive changes. Echocardiogram with preserved LVEF, grade 1 diastolic dysfunction, elevated E/e', dilated IVC. Given dose of IV Lasix on 03/22, will repeat another dose of IV Lasix today. Diastolic heart failure exacerbation likely triggered by influenza A. Please monitor strict I/Os. -Echocardiogram shows moderate aortic stenosis. Recommend outpatient follow up. -Continue Triamterene/HCTZ. -Continue Simvastatin. Recommendations and plan discussed with Hospitalist. Subjective Date/time seen: 03/23/24 10:53 Interval history: Reason for visit: CHF HPI: We are consulted for possible CHF. This is a 74 year old male with hypertension, COPD, LIZZY who presented with shortness of breath. has been sick for past couple of days. Found to have Influenza A, hypoxic respiratory failure requiring BIPAP. Workup shows WBC of 15, negative troponin, NT pro BNP of 214. CXR with mild bibasilar pulmonary edema or atelectasis, minimal pleural effusion, underlying COPD with elevation of left hemidiaphragm. EKG with sinus tachycardia, incomplete RBBB. Given doses of IV Lasix for possible CHF. Date of service 03/23: Feeling better. Still on BIPAP. Review of Systems Cardiovascular: Cardiovascular: Reports as per HPI Exam Const: General: no acute distress Eyes: General: appearance normal, both eyes and all related structures Sclera: sclerae normal Resp: Effort & Inspection: normal respiratory effort Other: On BIPAP Cardio: Rate: regular rate Rhythm: regular rhythm Other: No lower extremity edema Skin: General skin exam: normal color Neuro: Speech: normal speech Psych: Mental Status: mental status grossly normal Affect: normal affect Objective Data Vital Signs Vital Signs: Vital Signs - 24 hr 03/22/24 12:00 03/22/24 12:00 03/22/24 12:00 Temperature 36.6 C Pulse Rate 93 93 105 H Respiratory Rate 22 H 22 H Blood Pressure 105/58 L Pulse Oximetry 98 98 Oxygen Delivery BiPAP Fraction of Inspired Oxygen 30 03/22/24 14:00 03/22/24 14:35 03/22/24 14:47 Temperature Pulse Rate 84 92 94 Respiratory Rate 20 20 Blood Pressure Pulse Oximetry 96 Oxygen Delivery BiPAP Fraction of Inspired Oxygen 03/22/24 14:48 03/22/24 16:00 03/22/24 16:00 Temperature 36.4 C Pulse Rate 88 57 L 5 L Respiratory Rate 22 H 19 19 Blood Pressure 115/57 L Pulse Oximetry 97 97 Oxygen Delivery BiPAP Fraction of Inspired Oxygen 30 03/22/24 16:00 03/22/24 18:00 03/22/24 20:00 Temperature Pulse Rate 86 93 90 Respiratory Rate 222 H Blood Pressure Pulse Oximetry 97 Oxygen Delivery BiPAP Fraction of Inspired Oxygen 30 03/22/24 20:00 03/22/24 20:14 03/22/24 20:18 Temperature 36.8 C Pulse Rate 90 87 92 Respiratory Rate 22 H 20 Blood Pressure 132/52 L Pulse Oximetry 96 Oxygen Delivery Fraction of Inspired Oxygen 03/22/24 20:21 03/22/24 22:00 03/22/24 23:39 Temperature 37.0 C Pulse Rate 93 98 82 Respiratory Rate 22 H 20 Blood Pressure 146/50 H Pulse Oximetry 97 97 Oxygen Delivery Fraction of Inspired Oxygen 03/22/24 23:57 03/22/24 23:57 03/23/24 01:51 Temperature Pulse Rate 80 80 92 Respiratory Rate 20 20 Blood Pressure Pulse Oximetry 97 Oxygen Delivery BiPAP Fraction of Inspired Oxygen 30 03/23/24 01:53 03/23/24 02:00 03/23/24 04:00 Temperature Pulse Rate 86 84 82 Respiratory Rate 24 H 24 H Blood Pressure Pulse Oximetry 97 97 Oxygen Delivery BiPAP Fraction of Inspired Oxygen 30 03/23/24 04:00 03/23/24 04:30 03/23/24 06:00 Temperature 36.4 C Pulse Rate 82 82 84 Respiratory Rate 17 Blood Pressure 113/50 L Pulse Oximetry 92 Oxygen Delivery Fraction of Inspired Oxygen 03/23/24 07:42 03/23/24 07:42 03/23/24 07:42 Temperature Pulse Rate 89 84 Respiratory Rate 18 17 Blood Pressure Pulse Oximetry 98 96 Oxygen Delivery BiPAP Fraction of Inspired Oxygen 30 03/23/24 07:56 03/23/24 07:59 03/23/24 08:00 Temperature 36.3 C L Pulse Rate 82 91 97 Respiratory Rate 16 14 Blood Pressure 154/72 H Pulse Oximetry 95 Oxygen Delivery Fraction of Inspired Oxygen 03/23/24 10:00 Temperature Pulse Rate 93 Respiratory Rate Blood Pressure Pulse Oximetry Oxygen Delivery Fraction of Inspired Oxygen Intake/Output Intake/Output: Intake & Output 03/20/24 03/21/24 03/22/24 03/23/24 23:59 23:59 23:59 23:59 Intake Total 350 2650 1510 2436 Output Total 925 1800 2200 600 Balance -575 850 -690 1836 Meds/Results Medications: Active Medications Generic Name Dose Route Start Last Admin Trade Name Freq PRN Reason Stop Dose Admin Acetaminophen 650 mg 03/20/24 13:46 03/23/24 03:43 Acetaminophen 325 Mg Tablet PO 650 mg Q4H PRN Administration Mild Pain (1-3) or Fever Acetaminophen 1,000 mg 03/21/24 13:00 03/23/24 08:45 Acetaminophen 500 Mg Tablet PO 1,000 mg Q12HR JONATHAN Administration Albuterol 1 - 2 puff 03/21/24 10:32 03/21/24 15:14 Albuterol Sulfate (*Sp) Aerosol 1 Puff INHALATION 2 puff Q4HRT PRN Administration Shortness Of Breath Or Wheezing Amitriptyline HCl 50 mg 03/20/24 21:00 03/22/24 20:15 Amitriptyline Hcl 25 Mg Tablet PO 50 mg HS JONATHAN Administration Buspirone HCl 15 mg 03/21/24 09:00 03/23/24 08:46 Buspirone Hcl 5 Mg Tablet PO 15 mg QAM JONATHAN Administration Docusate Sodium 100 mg 03/21/24 09:00 03/23/24 08:45 Docusate Sodium 100 Mg Capsule PO 100 mg DAILY JONATHAN Administration Enoxaparin Sodium 40 mg 03/20/24 13:50 03/23/24 08:46 Enoxaparin 40 Mg/0.4 Ml Syringe SUB-Q 40 mg DAILY JONATHAN Administration Ipratropium [place] 0.5 mg 03/21/24 20:00 03/23/24 07:40 Ipratropium Br 0.02% Inh Soln 0.5 Mg/2.5 Ml Vial INHALATION 0.5 mg Q6HRT JONATHAN Administration Levalbuterol HCl 1.25 mg 03/20/24 14:00 03/23/24 07:40 Levalbuterol Neb 1.25 Mg/3 Ml INHALATION 1.25 mg Q6HRT JONATHAN Administration Lorazepam 1 mg 03/20/24 19:16 03/23/24 05:46 Lorazepam (*Crx) 1 Mg Tablet PO 1 mg Q6H PRN Administration Anxiety Oseltamivir Phosphate 75 mg 03/20/24 21:00 03/23/24 08:44 Oseltamivir Phosphate 75 Mg Capsule PO 03/24/24 21:01 75 mg Q12HR JONATHAN Administration Oxycodone HCl 5 mg 03/22/24 10:45 03/22/24 14:59 Oxycodone Hcl (*Crx) 5 Mg Tab Ir PO 5 mg Q6H PRN Administration Pain Rated 7-10 Perflutren Lipid Microsphere 0 ml 03/20/24 13:42 Perflutren Lipid Microspheres 1.5 Ml Vial Diluted To 10 Ml Total Volume IV PUSH 03/23/24 13:42 ONCE PRN adequate visualization Protocol Phenytoin Sodium 200 mg 03/20/24 12:50 03/23/24 08:47 Phenytoin Sodium 100 Mg Extended Release Cap PO 200 mg Q12HR JONATHAN Administration Simvastatin 10 mg 03/20/24 21:00 03/22/24 20:17 Simvastatin 10 Mg Tablet PO 10 mg HS JONATHAN Administration Triamterene/Hydrochlorothiazide 1 tab 03/21/24 09:00 03/23/24 08:44 Triamterene 37.5 Mg/Hctz 25 Mg (Maxzide) Tablet PO 1 tab QAM JONATHAN Administration Venlafaxine HCl 75 mg 03/20/24 21:00 03/22/24 20:17 Venlafaxine Hcl Xr 75 Mg Cap.Er.24h PO 75 mg HS JONATHAN Administration Venlafaxine HCl 150 mg 03/20/24 12:50 03/23/24 08:45 Venlafaxine Hcl Xr 75 Mg Cap.Er.24h PO 150 mg QAM JONATHAN Administration Radiology Results: ITS Impressions Chest X-Ray 03/22/24 08:00 Impression: [id number] left pleural effusion. Central pulmonary venous congestive change. Labs Labs: Laboratory Results - last 24 hr 03/22/24 03/23/24 10:46 08:44 WBC 8.3 8.3 RBC 3.95 L 3.65 L Hgb 12.5 L 11.5 L Hct 37.6 L 35.1 L MCV 95.2 96.2 MCH 31.6 31.5 MCHC 33.2 32.8 RDW 12.8 12.8 Plt Count 218 256 MPV 8.2 8.5 Sodium 134 L Potassium 3.8 Chloride 93 L Carbon Dioxide 35 H Anion Gap 6 BUN 19 Creatinine 0.73 Estim Creat Clear Calc 101 Estimated GFR > 60 Glucose 147 H Calcium 9.0
--- NOTE | 2024-03-23 12:39 | P.PNIM_ITS ---
Progress Note: A&P Assessment and Plan (1) Acute respiratory distress: Code(s): R06.03 - Acute respiratory distress Status: Acute Assessment and Plan: Secondary to COPD exacerbation and pulmonary edema with no history of CHF Patient on BiPAP with increased respiratory distress since admission, patient wishes to be intubated for respiratory distress if needed Repeat ABG essentially the same Repeat chest x-ray wet read with increased pulmonary edema 40 IV Lasix x2 stable- contunie PUlm following-still on bipap- Currently he is on the noninvasive ventilator 30% with saturations 98%. improving (2) Flu: Code(s): J11.1 - Influenza due to unidentified influenza virus with other respiratory manifestations Status: Acute Assessment and Plan: Tamiflu started in ED Continue for 5 days continue tamiflu (3) Chronic obstructive pulmonary disease with acute exacerbation: Code(s): J44.1 - Chronic obstructive pulmonary disease with (acute) exacerbation Status: Acute Assessment and Plan: Pulm notes reviewed: - Levalbuterol 1.25 mg Q 6 hours and ipratropium nebulizer 0.5 mg q.6 hours - hold off on inhaled steroids as the patient has influenza pneumonia - continue noninvasive ventilation with the AVAPS mode PRN - Goal saturation 90-94% (4) Pulmonary edema: Code(s): J81.1 - Chronic pulmonary edema Status: Acute Assessment and Plan: No known history of CHF, echo from 2012 shows hyperdynamic left ventricle systolic function with EF of 75% Echocardiogram ordered pending IV Lasix x2 Cardiology consulted (5) HTN (hypertension): Qualifiers: Hypertension type: essential hypertension Qualified Code(s): I10 - Essential (primary) hypertension Code(s): I10 - Essential (primary) hypertension Status: Acute Assessment and Plan: Ordered home antihypertensives (6) Hyperlipidemia: Qualifiers: Hyperlipidemia type: mixed hyperlipidemia Qualified Code(s): E78.2 - Mixed hyperlipidemia Code(s): E78.5 - Hyperlipidemia, unspecified Status: Acute Assessment and Plan: Ordered home statin (7) Anxiety: Code(s): F41.9 - Anxiety disorder, unspecified Status: Acute Assessment and Plan: Ordered home antidepressants and anxiety medication P.r.n. Ativan added monitor for now (8) Seizure: Code(s): R56.9 - Unspecified convulsions Status: Acute Assessment and Plan: Ordered home seizure meds (9) Acute diastolic (congestive) heart failure: Code(s): I50.31 - Acute diastolic (congestive) heart failure Status: Acute Assessment and Plan: cardiology consulted- see recommendations CXR yesterday showing small-moderate left pleural effusion, central pulmonary venous congestive changes. Echocardiogram with preserved LVEF, grade 1 diastolic dysfunction, elevated E/e', dilated IVC. Given dose of IV Lasix on 03/22, will repeat another dose of IV Lasix today. Diastolic heart failure exacerbation likely triggered by influenza A. Please monitor strict I/Os. -Echocardiogram shows moderate aortic stenosis. Recommend outpatient follow up. -Continue Triamterene/HCTZ. -Continue Simvastatin. Time Spent With Patient Time with patient: 25 - 35 minutes Subjective Date/time seen: 03/23/24 12:39 Interval history: 74-year-old male with history of COPD admitted for shortness of breath. His has been sick for the past couple days. he states that his breathing was so bad last night that he thought he was going to . Unable to lay flat or on his side, he felt like he was drowning. Denies fevers chills nausea or vomiting. In ED: leukocytosis at 15.0, ABG pH 7.37, pCO2 50.2, PO2 378, HC03 28, on the BiPAP in the emergency room, anion gap 13, glucose 150, lactic acid 1.6, BNP 214, influenza A positive, influenza B, RSV, COVID negative. Chest x-ray - mild pulmonary edema versus atelectasis with pleural effusion. EKG - sinus tachycardia rate of 127 with incomplete right bundle luis block. Cardiology was consulted. Xopenex - due to tachycardia Home long-acting inhalers continued. 03/22 pt is seen and examined. Pulmonology consulted per pt' request- adjustments to BiPap. Cardiology saw pt as well- doesnot appear to be fluid overloaded. Pt is feeling better this am. 03/23 improving. still on bipap- possible will remove it and wear only prn- will wait until sees pulm today. Stay in IMU overnight and if stable possible downgrade tomorrow or even d/c home Review of Systems Review of Systems: 12 systems were reviewed and are negative except for as per HPI. Constitutional: Constitutional: Denies chills Cardiovascular: Cardiovascular: Denies chest pain Respiratory: Respiratory: Denies chest congestion and Reports dyspnea on exertion Exam Narrative: General: comfortable, able to speak in full sentences HEENT: normocephalic, atraumatic. Mucous membranes moist. EOMI, PERRLA, bilateral sclera anicteric, no conjunctival injection. Neck supple without JVD, lymphadenopathy, or bruit. Respiratory: Course to ascultation bilaterally. diminished. comfortable on BiPAP Cardiovascular: Tachycardic Regular rate and rhythm, normal S1-S2 upon ascultation. No murmurs, rubs, or clicks. PMI is nondisplaced, capillary refill less than 3 second. Abdomen: Soft, round, no pulsatile masses, nondistended and nontender. No rebound, no guarding. No CVA tenderness, no hepatosplenomegaly. Bowel sounds present to all four quadrants. No high pitch or tinkling sounds, resonant to percussion. Extremities: No cyanosis, clubbing, or edema present. Pulses are palpable 2/2. Active ROM to all four extremities. Neuro: Alert and orientated x 4. PERRLA. Cranial nerves 2-12 intact without focal deficit. Skin: Warm, dry, and intact, without rash, erythema, or lesion. Psych: pleasant, cooperative, normal speech, normal affect, no hallucinations, no dysarthia Objective Data Vital Signs Vital Signs: Vital Signs - 24 hr 03/22/24 14:00 03/22/24 14:35 03/22/24 14:47 Temperature Pulse Rate 84 92 94 Respiratory Rate 20 20 Blood Pressure Pulse Oximetry 96 Oxygen Delivery BiPAP Fraction of Inspired Oxygen 03/22/24 14:48 03/22/24 16:00 03/22/24 16:00 Temperature 97.6 F Pulse Rate 88 57 L 5 L Respiratory Rate 22 H 19 19 Blood Pressure 115/57 L Pulse Oximetry 97 97 Oxygen Delivery BiPAP Fraction of Inspired Oxygen 30 03/22/24 16:00 03/22/24 18:00 03/22/24 20:00 Temperature Pulse Rate 86 93 90 Respiratory Rate 222 H Blood Pressure Pulse Oximetry 97 Oxygen Delivery BiPAP Fraction of Inspired Oxygen 30 03/22/24 20:00 03/22/24 20:14 03/22/24 20:18 Temperature 98.3 F Pulse Rate 90 87 92 Respiratory Rate 22 H 20 Blood Pressure 132/52 L Pulse Oximetry 96 Oxygen Delivery Fraction of Inspired Oxygen 03/22/24 20:21 03/22/24 22:00 03/22/24 23:39 Temperature 98.6 F Pulse Rate 93 98 82 Respiratory Rate 22 H 20 Blood Pressure 146/50 H Pulse Oximetry 97 97 Oxygen Delivery Fraction of Inspired Oxygen 03/22/24 23:57 03/22/24 23:57 03/23/24 01:51 Temperature Pulse Rate 80 80 92 Respiratory Rate 20 20 Blood Pressure Pulse Oximetry 97 Oxygen Delivery BiPAP Fraction of Inspired Oxygen 03/23/24 01:53 03/23/24 02:00 03/23/24 04:00 Temperature Pulse Rate 86 84 82 Respiratory Rate 24 H 24 H Blood Pressure Pulse Oximetry 97 97 Oxygen Delivery BiPAP Fraction of Inspired Oxygen 03/23/24 04:00 03/23/24 04:30 03/23/24 06:00 Temperature 97.6 F Pulse Rate 82 82 84 Respiratory Rate 17 Blood Pressure 113/50 L Pulse Oximetry 92 Oxygen Delivery Fraction of Inspired Oxygen 03/23/24 07:42 03/23/24 07:42 03/23/24 07:42 Temperature Pulse Rate 89 84 Respiratory Rate 18 17 Blood Pressure Pulse Oximetry 98 96 Oxygen Delivery BiPAP Fraction of Inspired Oxygen 03/23/24 07:56 03/23/24 07:59 03/23/24 08:00 Temperature 97.4 F L Pulse Rate 82 91 97 Respiratory Rate 16 14 Blood Pressure 154/72 H Pulse Oximetry 95 Oxygen Delivery Fraction of Inspired Oxygen 03/23/24 10:00 03/23/24 12:29 Temperature 97.3 F L Pulse Rate 93 90 Respiratory Rate 23 H Blood Pressure 137/67 Pulse Oximetry 97 Oxygen Delivery Fraction of Inspired Oxygen Intake/Output Intake/Output: Intake & Output 03/20/24 03/21/24 03/22/24 03/23/24 23:59 23:59 23:59 23:59 Intake Total 350 2650 1510 2676 Output Total 925 1800 2200 900 Balance 575 850 -856 1776 Meds/Results Medications: Active Medications Generic Name Dose Route Start Last Admin Trade Name Freq PRN Reason Stop Dose Admin Acetaminophen 650 mg 03/20/24 13:46 03/23/24 03:43 Acetaminophen 325 Mg Tablet PO 650 mg Q4H PRN Administration Mild Pain (1-3) or Fever Acetaminophen 1,000 mg 03/21/24 13:00 03/23/24 08:45 Acetaminophen 500 Mg Tablet PO 1,000 mg Q12HR JONATHAN Administration Albuterol 1 - 2 puff 03/21/24 10:32 03/21/24 15:14 Albuterol Sulfate (*Sp) Aerosol 1 Puff INHALATION 2 puff Q4HRT PRN Administration Shortness Of Breath Or Wheezing Amitriptyline HCl 50 mg 03/20/24 21:00 03/22/24 20:15 Amitriptyline Hcl 25 Mg Tablet PO 50 mg HS JONATHAN Administration Buspirone HCl 15 mg 03/21/24 09:00 03/23/24 08:46 Buspirone Hcl 5 Mg Tablet PO 15 mg QAM JONATHAN Administration Docusate Sodium 100 mg 03/21/24 09:00 03/23/24 08:45 Docusate Sodium 100 Mg Capsule PO 100 mg DAILY JONATHAN Administration Enoxaparin Sodium 40 mg 03/20/24 13:50 03/23/24 08:46 Enoxaparin 40 Mg/0.4 Ml Syringe SUB-Q 40 mg DAILY JONATHAN Administration Ipratropium [place] 0.5 mg 03/21/24 20:00 03/23/24 07:40 Ipratropium Br 0.02% Inh Soln 0.5 Mg/2.5 Ml Vial INHALATION 0.5 mg Q6HRT JONATAHN Administration Levalbuterol HCl 1.25 mg 03/20/24 14:00 03/23/24 07:40 Levalbuterol Neb 1.25 Mg/3 Ml INHALATION 1.25 mg Q6HRT JONATHAN Administration Lorazepam 1 mg 03/20/24 19:16 03/23/24 05:46 Lorazepam (*Crx) 1 Mg Tablet PO 1 mg Q6H PRN Administration Anxiety Oseltamivir Phosphate 75 mg 03/20/24 21:00 03/23/24 08:44 Oseltamivir Phosphate 75 Mg Capsule PO 03/24/24 21:01 75 mg Q12HR JONATHAN Administration Oxycodone HCl 5 mg 03/22/24 10:45 03/22/24 14:59 Oxycodone Hcl (*Crx) 5 Mg Tab Ir PO 5 mg Q6H PRN Administration Pain Rated 7-10 Perflutren Lipid Microsphere 0 ml 03/20/24 13:42 Perflutren Lipid Microspheres 1.5 Ml Vial Diluted To 10 Ml Total Volume IV PUSH 03/23/24 13:42 ONCE PRN adequate visualization Protocol Phenytoin Sodium 200 mg 03/20/24 12:50 03/23/24 08:47 Phenytoin Sodium 100 Mg Extended Release Cap PO 200 mg Q12HR JONATHAN Administration Simvastatin 10 mg 03/20/24 21:00 03/22/24 20:17 Simvastatin 10 Mg Tablet PO 10 mg HS JONATHAN Administration Triamterene/Hydrochlorothiazide 1 tab 03/21/24 09:00 03/23/24 08:44 Triamterene 37.5 Mg/Hctz 25 Mg (Maxzide) Tablet PO 1 tab QAM JONATHAN Administration Venlafaxine HCl 75 mg 03/20/24 21:00 03/22/24 20:17 Venlafaxine Hcl Xr 75 Mg Cap.Er.24h PO 75 mg HS JONATHAN Administration Venlafaxine HCl 150 mg 03/20/24 12:50 03/23/24 08:45 Venlafaxine Hcl Xr 75 Mg Cap.Er.24h PO 150 mg QAM JONATHAN Administration Radiology Results: ITS Impressions Chest X-Ray 03/22/24 08:00 Impression: [id number] left pleural effusion. Central pulmonary venous congestive change. Labs Labs: Laboratory Results - last 24 hr 03/23/24 08:44 WBC 8.3 RBC 3.65 L Hgb 11.5 L Hct 35.1 L MCV 96.2 MCH 31.5 MCHC 32.8 RDW 12.8 Plt Count 256 MPV 8.5 Sodium 134 L Potassium 3.8 Chloride 93 L Carbon Dioxide 35 H Anion Gap 6 BUN 19 Creatinine 0.73 Estim Creat Clear Calc 101 Estimated GFR > 60 Glucose 147 H Calcium 9.0 Quality VTE Prophylaxis VTE prophylaxis: mechanical ordered and pharmacologic ordered
[2024-03-23] MEDS: FUROSEMIDE INJ 40 MG/4 ML VIAL IV PUSH (12:48)
--- NOTE | 2024-03-23 14:12 | PM.PNPUL ---
Progress Note: A&P Assessment and Plan (1) Flu: Code(s): J11.1 - Influenza due to unidentified influenza virus with other respiratory manifestations Status: Acute Assessment and Plan: Patient's has been sick and he developed the flu. Influenza a RT PCR study positive on 03/20/2024. Started on Tamiflu 03/20/24. 03/21/2024: today the patient tells me he is 75% better. He has been on continuous BiPAP other than meals and we takes the BiPAP off he oxygenates well on 3 L nasal cannula. He tells me the BiPAP is somewhat uncomfortable and I changed him to a noninvasive ventilation with the AVAPS mode and adjusted settings to come for resulting in a rate of 14, tidal volume 500, EPAP 9, minimal inspiratory pressure 10, maximal inspiratory pressure 25, inspiratory time 0.8, rise of 1 the fastest and 30% FiO2. Plan: Patient tells me he is breathing better, 75% back to his baseline. Leukocytosis has improved and he is afebrile. Continue Tamiflu, day 2. Patient will require at least 5 days of Tamiflu and will reassess clinically to determine if his disease is severe enough to warrant 10 days. Chest x-ray with no evidence of focal infiltrates. AVAPS with the above settings p.r.n.. 03/22/2024. Patient tells me he has a little bit better. He says his lungs feel like they are clearing up. He is he is centrally remained on theNIV at all times except for taking it off for meals. Currently he is on the noninvasive ventilator 30% with saturations 98%. Plan: Patient says he is improved. Review continue Tamiflu day 3. 03/23/2024: Patient states that he is feeling much better. states he is breathing back to his normal. He was requesting to go home. Patient wore the hospital noninvasive ventilator last night and did well. Currently he is off the noninvasive ventilator on 3 L with saturations 92%. He is afebrile. White blood cell count 8.3, creatinine 0.73. Plan: Patient continues to improve. Continue Tamiflu, day 4. If patient remains clinically stable will consider discharge on 03/24/2024. Discussed with Karen Kitchen. Will follow with you. (2) COPD (chronic obstructive pulmonary disease): Qualifiers: COPD type: emphysema Emphysema type: unspecified Qualified Code(s): J43.9 - Emphysema, unspecified Code(s): J44.9 - Chronic obstructive pulmonary disease, unspecified Status: Acute Assessment and Plan: Gold grade 4 group D COPD The patient is maintained on Symbicort and Spiriva. PFTs 11/08/2018 with an FEV1 of 0.89 L. 27%, negative bronchodilator response, air trapping, moderately decreased DLCO that was increased when adjusted for alveolar volume. P.r.n. oxygen during the day. Uses BiPAP 23/16 with 2 L bleed in at night for his obstructive sleep apnea. 03/21/24: currently the patient states he has improved. He has influenza pneumonia but no evidence of COPD exacerbation. Blood gas on BiPAP 7.. Plan: I will place the patient on Levalbuterol 1.25 mg Q 6 hours and ipratropium nebulizer 0.5 mg q.6 hours. I will hold off on inhaled steroids as the patient has influenza pneumonia. I will continue noninvasive ventilation with the AVAPS mode PRN. Goal saturation 90-94%. 03/22/2024: No wheezing on exam. Plan: Continue levalbuterol and ipratropium q.6 hours. Noninvasive ventilation with the AVAPS mode p.r.n.. Says he is scared to take it off. I have encouraged him to do so and told him we will monitor his saturations to make sure it is safe. 03/23/2024: No wheezing on exam. He is off the BiPAP during the day. Plan: I will continue levalbuterol and ipratropium nebulizers q.[address] the patient on his home BiPAP settings Rate of 16, pressures 23/16, inspiratory time 1.0, rise of 3 and 28% FiO2 and perform an overnight oximetry on these settings. (3) Obstructive sleep apnea: Code(s): G47.33 - Obstructive sleep apnea (adult) (pediatric) Status: Acute Assessment and Plan: 03/21/24: Patient with obstructive sleep apnea on BiPAP with 2 L bleed in with pressures 23/16. Plan: I will continue noninvasive ventilation with the AVAPS mode as above. 03/23: patient is unable to bring his home noninvasive ventilator in because his is sick with the flu. Plan: I will place the patient on his home BiPAP settings to mimic his home settings: Rate of 16, pressures 23/16, inspiratory time 1.0, rise of 3 and 28% FiO2 and perform an overnight oximetry on these settings. Subjective Date/time seen: 03/23/24 14:12 Interval history: 03/21/2024: This is a new pulmonary consult for influenza a with hypoxic respiratory failure. 74-year-old man with a history of hypertension, hyperlipidemia, morbid obesity, paralyzed left hemidiaphragm, COPD, obstructive sleep apnea on BiPAP 23/16 with 2 L bleed in and tobacco use. Patient is followed in the [facility] in last seen on 11/23/2023: Here is this note. 1 year follow-up regarding COPD and LIZZY on BiPAP w/2L O2. He reports he is doing well with his breathing, no ER visits or flareups. He feels his symptoms have been stable. Denies any excessive coughing or sputum production. Denies fever, hemoptysis, chest pains/tightness, or nighttime breathing issues. Main complaint is more anxiety lately that he feels does affect his breathing. He is on medications for anxiety. He will then get on BiPAP which helps. BiPAP usage has been more over the past year. He is compliant with it when asleep. He is maintained on Symbicort and Spiriva, doing well with this. Combivent PRN. He does have oxygen in the home that he uses if his saturations are below 90%.? He does keep track of this. Has O2 bleed-in with BiPAP. Hasn't used it during the day often. He admits to smoking cigarettes 1/2ppd; does smoked marijuana for anxiety.? CAT score 19/40, was 18/40 last visit. Patient presented to the emergency department on 03/20/2024 with shortness of breath. His had the flu 1 week ago. His worsening symptoms let him to use continuous BiPAP at home. Presented to the emergency department with a blood pressure 190/102, heart rate 130, respirations 22 and on BiPAP be was 100% saturated. His white blood cell count was 15.0, eosinophils 0.7%. Creatinine was 0.73, BNP was 2 114. Influenza a RT PCR study positive with a negative COVID and negative RSV and influenza B. on BiPAP rate of 16, pressure 16/8 and 80% patient's blood gas was 7.38/50/378. Approximately 6 hours later blood gas on BiPAP 16/8 and 30% was 7.38/49/97. He was given 1 dose of Solu-Medrol in the emergency room for that has been discontinued. Patient was started on Tamiflu and Incruse. 03/21/2024: today the patient tells me he is 75% better. He has been on continuous BiPAP other than meals and we takes the BiPAP off he oxygenates well on 3 L nasal cannula. He tells me the BiPAP is somewhat uncomfortable and I changed him to a noninvasive ventilation with the AVAPS mode and adjusted settings to come for resulting in a rate of 14, tidal volume 500, EPAP 9, minimal inspiratory pressure 10, maximal inspiratory pressure 25, inspiratory time 0.8, rise of 1 the fastest and 30% FiO2. 03/22/2024. Patient tells me he has a little bit better. He says his lungs feel like they are clearing up. He is he is centrally remained on theNIV at all times except for taking it off for meals. Currently he is on the noninvasive ventilator 30% with saturations 98%. 03/23/2024: Patient states that he is feeling much better. states he is breathing back to his normal. He was requesting to go home. Patient wore the hospital noninvasive ventilator last night and did well. Currently he is off the noninvasive ventilator on 3 L with saturations 92%. He is afebrile. White blood cell count 8.3, creatinine 0.73. DATA PFT 11/08/18 - extremely severe obstructive ventilatory defect with good bronchodilator response especially in the small airways. Moderate restrictive defect with air trapping. Severe increase in airway resistance. Moderate diffusion defect. FEV1 0.89L, FEV1/FVC 47% pred. He was very dizzy and near syncope doing the PFT. 11/08/2018 - Six min walk - no O2 needed with exertion, walked 800 feet. 11/08/2018 : echo - poor study, EF 60-65%, grade I diastolic dysfunction, mild aortic stenosis, mild pulmonary hypertension RVSP 41 mm Hg. Trace Pulmonary regurg. RV chamber not well seen. BiPAP Titration 03/2014 optimum pressure of BiPAP was achieved at 23/16 with relatively good sleep efficiency and stabilization of oxygen saturation. He was also given an additional 3 L of oxygen with this. Review of Systems Constitutional: Constitutional: Reports no additional constitutional complaints Eyes: Eyes: Reports no additional eye complaints ENT: Reports system reviewed and no additional complaints, except as documented Cardiovascular: Cardiovascular: Reports no additional cardiovascular complaints Respiratory: Respiratory: Reports no additional respiratory complaints Gastrointestinal: Gastrointestinal: Reports no additional gastrointestinal complaints Musculoskeletal: Musculoskeletal: Reports no additional musculoskeletal complaints Neurologic: Reports system reviewed and no additional complaints, except as documented Psychiatric: Psychiatric: Reports no additional psychiatric complaints Endocrine: Endocrine: Reports no additional endocrine complaints Hematologic/Lymphatic: Hematologic/Lymphatic: Reports no additional hematologic/lymphatic complaints Allergic/Immunologic: Allergic/Immunologic: Reports no additional allergic/immunologic complaints Exam Const: General: cooperative, healthy appearing and comfortable Orientation/consciousness: oriented to person, oriented to place and oriented to time HENMT: Head: normal to inspection Ears: hearing grossly normal bilaterally Eyes: General: appearance normal, both eyes and all related structures Neck: Neck: normal visual inspection Chest: Chest palpation & inspection: normal inspection of the chest Resp: Effort & Inspection: normal respiratory effort and able to speak in complete sentences Auscultation: no crackles, no rales, no rhonchi, no wheezes and lung sounds not diminished Other: No wheezing, crackles throughout. Cardio: Jugular venous distension: no JVD GI: Inspection: normal to inspection Skin: General skin exam: normal color Neuro: General: oriented to person, oriented to place and oriented to time Extrem: General: normal to inspection Psych: Appearance: grossly normal Objective Data Vital Signs Vital Signs: Vital Signs - 24 hr 03/22/24 14:35 03/22/24 14:47 03/22/24 14:48 Temperature Pulse Rate 92 94 88 Respiratory Rate 20 20 22 H Blood Pressure Pulse Oximetry 96 Oxygen Delivery BiPAP Fraction of Inspired Oxygen 03/22/24 16:00 03/22/24 16:00 03/22/24 16:00 Temperature 36.4 C Pulse Rate 57 L 5 L 86 Respiratory Rate 19 19 Blood Pressure 115/57 L Pulse Oximetry 97 97 Oxygen Delivery BiPAP Fraction of Inspired Oxygen 30 03/22/24 18:00 03/22/24 20:00 03/22/24 20:00 Temperature Pulse Rate 93 90 90 Respiratory Rate 222 H Blood Pressure Pulse Oximetry 97 Oxygen Delivery BiPAP Fraction of Inspired Oxygen 30 03/22/24 20:14 03/22/24 20:18 03/22/24 20:21 Temperature 36.8 C Pulse Rate 87 92 93 Respiratory Rate 22 H 20 22 H Blood Pressure 132/52 L Pulse Oximetry 96 97 Oxygen Delivery Fraction of Inspired Oxygen 03/22/24 22:00 03/22/24 23:39 03/22/24 23:57 Temperature 37.0 C Pulse Rate 98 82 80 Respiratory Rate 20 20 Blood Pressure 146/50 H Pulse Oximetry 97 97 Oxygen Delivery BiPAP Fraction of Inspired Oxygen 30 03/22/24 23:57 03/23/24 01:51 03/23/24 01:53 Temperature Pulse Rate 80 92 86 Respiratory Rate 20 24 H Blood Pressure Pulse Oximetry 97 Oxygen Delivery Fraction of Inspired Oxygen 03/23/24 02:00 03/23/24 04:00 03/23/24 04:00 Temperature Pulse Rate 84 82 82 Respiratory Rate 24 H Blood Pressure Pulse Oximetry 97 Oxygen Delivery BiPAP Fraction of Inspired Oxygen 30 03/23/24 04:30 03/23/24 06:00 03/23/24 07:42 Temperature 36.4 C Pulse Rate 82 84 Respiratory Rate 17 Blood Pressure 113/50 L Pulse Oximetry 92 98 Oxygen Delivery BiPAP Fraction of Inspired Oxygen 30 03/23/24 07:42 03/23/24 07:42 03/23/24 07:56 Temperature Pulse Rate 89 84 82 Respiratory Rate 18 17 16 Blood Pressure Pulse Oximetry 96 Oxygen Delivery Fraction of Inspired Oxygen 03/23/24 07:59 03/23/24 08:00 03/23/24 10:00 Temperature 36.3 C L Pulse Rate 91 97 93 Respiratory Rate 14 Blood Pressure 154/72 H Pulse Oximetry 95 Oxygen Delivery Fraction of Inspired Oxygen 03/23/24 12:00 03/23/24 12:00 03/23/24 12:29 Temperature 36.3 C L Pulse Rate 90 103 H 90 Respiratory Rate 23 H 23 H Blood Pressure 137/67 Pulse Oximetry 97 97 Oxygen Delivery BiPAP Fraction of Inspired Oxygen 30 Intake/Output Intake/Output: Intake & Output 03/20/24 03/21/24 03/22/24 03/23/24 23:59 23:59 23:59 23:59 Intake Total 350 2650 1510 2676 Output Total 925 1800 2200 900 Balance -575 850 -484 1776 Meds/Results Medications: Active Medications Generic Name Dose Route Start Last Admin Trade Name Freq PRN Reason Stop Dose Admin Acetaminophen 650 mg 03/20/24 13:46 03/23/24 03:43 Acetaminophen 325 Mg Tablet PO 650 mg Q4H PRN Administration Mild Pain (1-3) or Fever Acetaminophen 1,000 mg 03/21/24 13:00 03/23/24 08:45 Acetaminophen 500 Mg Tablet PO 1,000 mg Q12HR JONATHAN Administration Albuterol 1 - 2 puff 03/21/24 10:32 03/21/24 15:14 Albuterol Sulfate (*Sp) Aerosol 1 Puff INHALATION 2 puff Q4HRT PRN Administration Shortness Of Breath Or Wheezing Amitriptyline HCl 50 mg 03/20/24 21:00 03/22/24 20:15 Amitriptyline Hcl 25 Mg Tablet PO 50 mg HS JONATHAN Administration Buspirone HCl 15 mg 03/21/24 09:00 03/23/24 08:46 Buspirone Hcl 5 Mg Tablet PO 15 mg QAM JONATHAN Administration Docusate Sodium 100 mg 03/21/24 09:00 03/23/24 08:45 Docusate Sodium 100 Mg Capsule PO 100 mg DAILY JONATHAN Administration Enoxaparin Sodium 40 mg 03/20/24 13:50 03/23/24 08:46 Enoxaparin 40 Mg/0.4 Ml Syringe SUB-Q 40 mg DAILY JONATHAN Administration Ipratropium [place] 0.5 mg 03/21/24 20:00 03/23/24 14:11 Ipratropium Br 0.02% Inh Soln 0.5 Mg/2.5 Ml Vial INHALATION 0.5 mg Q6HRT JONATHAN Administration Levalbuterol HCl 1.25 mg 03/20/24 14:00 03/23/24 14:11 Levalbuterol Neb 1.25 Mg/3 Ml INHALATION 1.25 mg Q6HRT JONATHAN Administration Lorazepam 1 mg 03/20/24 19:16 03/23/24 12:45 Lorazepam (*Crx) 1 Mg Tablet PO 1 mg Q6H PRN Administration Anxiety Oseltamivir Phosphate 75 mg 03/20/24 21:00 03/23/24 08:44 Oseltamivir Phosphate 75 Mg Capsule PO 03/24/24 21:01 75 mg Q12HR JONATHAN Administration Oxycodone HCl 5 mg 03/22/24 10:45 03/22/24 14:59 Oxycodone Hcl (*Crx) 5 Mg Tab Ir PO 5 mg Q6H PRN Administration Pain Rated 7-10 Phenytoin Sodium 200 mg 03/20/24 12:50 03/23/24 08:47 Phenytoin Sodium 100 Mg Extended Release Cap PO 200 mg Q12HR JONATHAN Administration Simvastatin 10 mg 03/20/24 21:00 03/22/24 20:17 Simvastatin 10 Mg Tablet PO 10 mg HS JONATHAN Administration Triamterene/Hydrochlorothiazide 1 tab 03/21/24 09:00 03/23/24 08:44 Triamterene 37.5 Mg/Hctz 25 Mg (Maxzide) Tablet PO 1 tab QAM JONATHAN Administration Venlafaxine HCl 75 mg 03/20/24 21:00 03/22/24 20:17 Venlafaxine Hcl Xr 75 Mg Cap.Er.24h PO 75 mg HS JONATHAN Administration Venlafaxine HCl 150 mg 03/20/24 12:50 03/23/24 08:45 Venlafaxine Hcl Xr 75 Mg Cap.Er.24h PO 150 mg QAM JONATHAN Administration Radiology Results: ITS Impressions Chest X-Ray 03/22/24 08:00 Impression: [id number] left pleural effusion. Central pulmonary venous congestive change. Labs Labs: Laboratory Results - last 24 hr 03/23/24 08:44 WBC 8.3 RBC 3.65 L Hgb 11.5 L Hct 35.1 L MCV 96.2 MCH 31.5 MCHC 32.8 RDW 12.8 Plt Count 256 MPV 8.5 Sodium 134 L Potassium 3.8 Chloride 93 L Carbon Dioxide 35 H Anion Gap 6 BUN 19 Creatinine 0.73 Estim Creat Clear Calc 101 Estimated GFR > 60 Glucose 147 H Calcium 9.0
--- NOTE | 2024-03-23 18:17 | PC.NURSE ---
RN attempted twice to obtain new IV. Unsuccessful x2 attempts. Pt refusing to let anyone else try at this time. Please leave me alone and just try again later. business department chair notified.
[2024-03-23] MEDS: VENLAFAXINE HCL XR 75 MG CAP.ER.24H PO (20:18)
[2024-03-23] MEDS: SIMVASTATIN 10 MG TABLET PO (20:18)
[2024-03-23] MEDS: AMITRIPTYLINE HCL 25 MG TABLET 50 MG PO (20:18)
[2024-03-24] VITALS (20 sets, daily range): BP systolic 120–140; BP diastolic 60–87; PULSE 72–107; RESP 17–32; TEMP 36.4–36.8; O2SAT 87–99
[2024-03-24] MEDS: ACETAMINOPHEN 325 MG TABLET 650 MG PO (02:15)
[2024-03-24] MEDS: LORazepam (*CRX) 1 MG TABLET PO (02:16)
--- NOTE | 2024-03-24 04:53 | PCRCNOTE ---
Patient did not receive 0200 updraft treatment due to being on an overnight oximetry study. Treatment to resume at 0800.
[2024-03-24 07:35] LABS: Hematocrit 35.9 % (42.0-52.0); Hemoglobin 11.8 g/dL (14.0-18.0); Mean Corpuscular HGB Conc 32.9 g/dl (32-36); Mean Corpuscular Hemoglobin 31.1 pg (26-34); Mean Corpuscular Volume 94.7 fl (80-100); Mean Platelet Volume 8.3 fl (7.4-10.4); Platelet Count Result 271 k/mm3 (150-375); Red Blood Count 3.79 M/mm3 (4.6-6.20); Red Cell Distribution Width 12.7 % (11.5-14.5); White Blood Count 6.2 K/mm3 (4.5-10.0)
[2024-03-24 07:58] LABS: Anion Gap 6 mmol/L (4-12); Blood Urea Nitrogen 19 mg/dL (9-20); Calcium 9.1 mg/dL (8.4-10.2); Carbon Dioxide 35 mmol/L (22-30); Chloride 94 mmol/L (98-107); Estimated CRCL calculation 118 ml/min; Estimated Glomerular Filt Rate > 60; Glucose 111 mg/dL (65-110); Potassium 3.7 mmol/L (3.4-5.0); Sodium 135 mmol/L (137-145)
[2024-03-24] MEDS: LEVALBUTEROL NEB 1.25 MG/3 ML INHALATION (08:18)
[2024-03-24] MEDS: IPRATROPIUM BR 0.02% INH SOLN 0.5 MG/2.5 ML VIAL INHALATION (08:18)
[2024-03-24] MEDS: busPIRone HCL 5 MG TABLET 15 MG PO (08:44)
[2024-03-24] MEDS: DOCUSATE SODIUM 100 MG CAPSULE PO (08:45)
[2024-03-24] MEDS: ACETAMINOPHEN 500 MG TABLET 1000 MG PO (08:45)
[2024-03-24] MEDS: OSELTAMIVIR PHOSPHATE 75 MG CAPSULE PO (08:46)
[2024-03-24] MEDS: VENLAFAXINE HCL XR 75 MG CAP.ER.24H 150 MG PO (08:46)
[2024-03-24] MEDS: TRIAMTERENE 37.5 MG/HCTZ 25 MG (MAXZIDE) TABLET 1 TAB PO (08:47)
[2024-03-24] MEDS: PHENYTOIN SODIUM 100 MG EXTENDED RELEASE CAP 200 MG PO (08:47)
[2024-03-24] MEDS: ENOXAPARIN 40 MG/0.4 ML SYRINGE SUB-Q (08:52)
--- NOTE | 2024-03-24 09:09 | PM.DS ---
DS: Admitting Diagnosis Discharge Date 03/24 Admitting Diagnosis sob DS: Discharge Diagnosis Discharge Diagnosis (1) Acute respiratory distress: Code(s): R06.03 - Acute respiratory distress Status: Acute (2) Flu: Code(s): J11.1 - Influenza due to unidentified influenza virus with other respiratory manifestations Status: Acute (3) Chronic obstructive pulmonary disease with acute exacerbation: Code(s): J44.1 - Chronic obstructive pulmonary disease with (acute) exacerbation Status: Acute (4) Pulmonary edema: Code(s): J81.1 - Chronic pulmonary edema Status: Acute (5) HTN (hypertension): Qualifiers: Hypertension type: essential hypertension Qualified Code(s): I10 - Essential (primary) hypertension Code(s): I10 - Essential (primary) hypertension Status: Acute (6) Hyperlipidemia: Qualifiers: Hyperlipidemia type: mixed hyperlipidemia Qualified Code(s): E78.2 - Mixed hyperlipidemia Code(s): E78.5 - Hyperlipidemia, unspecified Status: Acute (7) Anxiety: Code(s): F41.9 - Anxiety disorder, unspecified Status: Acute (8) Seizure: Code(s): R56.9 - Unspecified convulsions Status: Acute (9) Acute diastolic (congestive) heart failure: Code(s): I50.31 - Acute diastolic (congestive) heart failure Status: Acute DS: Summary Hospital Course Hospital Course: 74-year-old male with history of COPD admitted for shortness of breath. His has been sick for the past couple days. he states that his breathing was so bad last night that he thought he was going to . Unable to lay flat or on his side, he felt like he was drowning. Denies fevers chills nausea or vomiting. In ED: leukocytosis at 15.0, ABG pH 7.37, pCO2 50.2, PO2 378, HC03 28, on the BiPAP in the emergency room, anion gap 13, glucose 150, lactic acid 1.6, BNP 214, influenza A positive, influenza B, RSV, COVID negative. Chest x-ray - mild pulmonary edema versus atelectasis with pleural effusion. EKG - sinus tachycardia rate of 127 with incomplete right bundle luis block. Cardiology was consulted: CXR yesterday showing small-moderate left pleural effusion, central pulmonary venous congestive changes. Echocardiogram with preserved LVEF, grade 1 diastolic dysfunction, elevated E/e', dilated IVC. Given dose of IV Lasix on 03/22, will repeat another dose of IV Lasix today. Diastolic heart failure exacerbation likely triggered by influenza A. Please monitor strict I/Os. -Echocardiogram shows moderate aortic stenosis. Recommend outpatient follow up. -Continue Triamterene/HCTZ. -Continue Simvastatin. Patient is followed in the Pulmonary Clinic in last seen on 11/23/2023. PUlm was consulted. He was placed on BiPap on 03/21: rate of 14, tidal volume 500, EPAP 9, minimal inspiratory pressure 10, maximal inspiratory pressure 25, inspiratory time 0.8, rise of 1 the fastest and 30% FiO2. He remained on it for 2 days, and yesterday after seeing DR Weaver was able to come off of it and use it as needed. 03/23/2024: Patient feeling much better. states he is breathing back to his normal. thought he was ready to go home. Patient wore the hospital noninvasive ventilator last night and did well. Currently he is off the noninvasive ventilator on 3 L with saturations 92%. He is afebrile. White blood cell count 8.3, creatinine 0.73. Patient continues to improve. Continue Tamiflu, day 4. Patient remained clinically stable overnight and was cleared to be discharge on 03/24/2024 per pulm. Following recommendations are made per DR Weaver: From a pulmonary perspective patient can be discharged on these pulmonary medications: Tamiflu 75 mg p.o. b.i.d. x5 days, last dose evening of 03/29/24. Symbicort 80-4.5 at 2 puffs q.12 hours. Incruse Ellipta 62.5 at 1 puff q.day rescue albuterol 2 puffs q.4 hours p.r.n. shortness of breath or wheezing Rescue albuterol nebulizer q.4 hours p.r.n. shortness of breath or wheezing oxygen at rest and with activity per formal home O2 assessment which I have ordered BiPAP with auto rate and 2 L bleed in when he naps or sleeps follow-up in the Pulmonary Clinic in 4-6 weeks. Patient is an established patient in the clinic and he is instructed to call the clinic to set up this appointment and I have informed our ticket scheduler. # copd Gold grade 4 group D COPD The patient is on Symbicort and Spiriva. PFTs 11/08/2018 with an FEV1 of 0.89 L. 27%. P.r.n. oxygen during the day. Uses BiPAP with 2 L bleed in at night for his obstructive sleep apnea. here, he was started on Levalbuterol 1.25 mg Q 6 hours and ipratropium nebulizer 0.5 mg q.6 hours. I will hold off on inhaled steroids as the patient has influenza pneumonia. I will continue noninvasive ventilation with the AVAPS mode PRN. Goal saturation 90-94%. He has not been smoking since admission and determined not to restart once discharged. Status at Discharge Functional status at discharge: independent ambulation Overall status at discharge: patient is progressing back to baseline Time Spent with Patient Time attestation: Total time spent providing and/or coordinating discharge services: Time spent: Greater than 30 minutes Exam Narrative: General: comfortable, able to speak in full sentences HEENT: normocephalic, atraumatic. Mucous membranes moist. EOMI, PERRLA, bilateral sclera anicteric, no conjunctival injection. Neck supple without JVD, lymphadenopathy, or bruit. Respiratory: Course to ascultation bilaterally. Cardiovascular: Tachycardic Regular rate and rhythm, normal S1-S2 upon ascultation. No murmurs, rubs, or clicks. PMI is nondisplaced, capillary refill less than 3 second. Abdomen: Soft, round, no pulsatile masses, nondistended and nontender. No rebound, no guarding. No CVA tenderness, no hepatosplenomegaly. Bowel sounds present to all four quadrants. No high pitch or tinkling sounds, resonant to percussion. Extremities: No cyanosis, clubbing, or edema present. Pulses are palpable 2/2. Active ROM to all four extremities. Neuro: Alert and orientated x 4. PERRLA. Cranial nerves 2-12 intact without focal deficit. Skin: Warm, dry, and intact, without rash, erythema, or lesion. Psych: pleasant, cooperative, normal speech, normal affect, no hallucinations, no dysarthia DS: Data Data Completed and Pending Completed studies during hospitalization: multiple chest xray Labs on day of discharge: Labs from last 24 hours 03/24/24 03/23/24 07:24 08:44 WBC 6.2 RBC 3.79 L Hgb 11.8 L Hct 35.9 L MCV 94.7 MCH 31.1 MCHC 32.9 RDW 12.7 Plt Count 271 MPV 8.3 Sodium 135 L 134 L Potassium 3.7 3.8 Chloride 94 L 93 L Carbon Dioxide 35 H 35 H Anion Gap 6 6 BUN 19 19 Creatinine 0.62 L 0.73 Estim Creat Clear Calc 118 101 Estimated GFR > 60 > 60 Glucose 111 H 147 H Calcium 9.1 9.0 Preliminary micro results at discharge 03/20/24 12:16 Blood Culture - Preliminary Blood 03/20/24 08:05 Blood Culture - Preliminary Blood Discharge Plan Discharge Attending physician on discharge: Raffy Gonzalez Consulting providers: Turner Soni; Casa Weaver Discharging Clinician: Bhavya Kitchen Anticipated Discharge Date/Time: 03/24/24 14:30 Patient Disposition: Home, Self-Care Activity: june shower Diet: heart healthy Discharge Instructions: You were admitted and treated for flu /respiratory distress. Dr Weaver recommend you f/u with pulmonology clinic in 4-6 weeks. Here are his recommendations for aria rest of your meds: Tamiflu 75 mg p.o. b.i.d. x5 days, last dose evening of 03/29/24. Symbicort 80-4.5 at 2 puffs q.12 hours. Ellipta 62.5 at 1 puff q.day rescue albuterol 2 puffs q.4 hours p.r.n. shortness of breath or wheezing Rescue albuterol nebulizer q.4 hours p.r.n. shortness of breath or wheezing oxygen at rest and with activity per formal home O2 assessment BiPAP with auto rate and 2 L bleed in when he naps or sleeps follow-up in the Pulmonary Clinic in 4-6 weeks. Patient is an established patient in the clinic and he is instructed to call the clinic to set up this appointment and I have informed our ticket scheduler. Patient Instructions: Antibiotic Form Patient Language: Kyrgyz Stand Alone Forms: General Discharge Information Follow-up/Referrals: Eliseo Van MD [Primary Care Provider] - 2 Weeks Casa Weaver MD [Physician] - 4 Weeks Discharge Medications: New oseltamivir [Tamiflu] 75 mg Capsule 75 mg PO Q12HR Qty: 10 0RF Rx Instructions: last day evening of 03/29 Continued budesonide-formoterol [Symbicort] 80-4.5 mcg/actuation HFA aerosol inhaler 2 puff inhalation Q12H 90 Days Qty: 30.6 3RF Rx Instructions: rinse and spit buspirone 15 mg tablet 15 mg PO QAM Qty: 90 5RF phenytoin sodium extended 100 mg capsule 200 mg PO Q12H Rx Instructions: take 3 capsule by mouth and 3 times at bedtime times albuterol sulfate 2.5 mg /3 mL (0.083 %) solution for nebulization 2.5 mg inhalation Q4-6H PRN (Reason: shortness of breath or wheezing) 90 Days Qty: 1080 1RF cyanocobalamin (vitamin B-12) [Vitamin B-12] 1,000 mcg tablet 1,000 mcg PO DAILY venlafaxine 75 mg tablet 150 mg PO QAM acetaminophen 500 mg capsule 1,000 mg PO Q12H venlafaxine 75 mg capsule,extended release 24hr 75 mg PO HS amitriptyline 50 mg tablet 50 mg PO HS omega [id number] oil [Fish Oil] 1,000 (120-180) mg capsule 1 cap PO DAILY triamterene-hydrochlorothiazid 37.5-25 mg capsule See Rx Instructions .ROUTE .COMPLEX Qty: 90 3RF Dose Instruction: TAKE 1 CAPSULE BY MOUTH DAILY Rx Instructions: TAKE 1 CAPSULE BY MOUTH DAILY Incruse Ellipta 62.5 mcg/actuation blister with device 1 inh inhalation Q24H 90 Days Qty: 90 3RF Incruse Ellipta 62.5 mcg/actuation blister with device 1 inh inhalation Q24H Qty: 30 0RF albuterol sulfate 90 mcg/actuation HFA aerosol inhaler See Rx Instructions .ROUTE .COMPLEX Qty: 51 0RF Dose Instruction: USE 1 TO 2 INHALATIONS BY MOUTH EVERY 4 TO 6 HOURS NEEDED FOR SHORTNESS OF BREATH OR WHEEZING Rx Instructions: USE 1 TO 2 INHALATIONS BY MOUTH EVERY 4 TO 6 HOURS NEEDED FOR SHORTNESS OF BREATH OR WHEEZING No Action simvastatin 10 mg tablet 10 mg PO HS Date of admission: 03/20/24 10:24 Primary Care Provider: Schueler,Eliseo F. Admitting Provider: Tarik Riley Attending physician on admission: Tarik Riley Condition: Improved Quality VTE Prophylaxis VTE prophylaxis: mechanical ordered and pharmacologic ordered Hospitalist MIPS Heart Failure (Exclusion) Patient has history of Heart Transplant or Left Ventricular Assistive Device?: No IF YES, STOP HERE Heart Failure (Qualifier) Patient has current or prior documentation of LVEF less than or equal to 40%, or mod/servere depressed LVSF?: No IF NO, STOP HERE
--- NOTE | 2024-03-24 09:54 | PM.PNPUL ---
Progress Note: A&P Assessment and Plan (1) Flu: Code(s): J11.1 - Influenza due to unidentified influenza virus with other respiratory manifestations Status: Acute Assessment and Plan: Patient's has been sick and he developed the flu. Influenza a RT PCR study positive on 03/20/2024. Started on Tamiflu 03/20/24. 03/21/2024: today the patient tells me he is 75% better. He has been on continuous BiPAP other than meals and we takes the BiPAP off he oxygenates well on 3 L nasal cannula. He tells me the BiPAP is somewhat uncomfortable and I changed him to a noninvasive ventilation with the AVAPS mode and adjusted settings to come for resulting in a rate of 14, tidal volume 500, EPAP 9, minimal inspiratory pressure 10, maximal inspiratory pressure 25, inspiratory time 0.8, rise of 1 the fastest and 30% FiO2. Plan: Patient tells me he is breathing better, 75% back to his baseline. Leukocytosis has improved and he is afebrile. Continue Tamiflu, day 2. Patient will require at least 5 days of Tamiflu and will reassess clinically to determine if his disease is severe enough to warrant 10 days. Chest x-ray with no evidence of focal infiltrates. AVAPS with the above settings p.r.n.. 03/22/2024. Patient tells me he has a little bit better. He says his lungs feel like they are clearing up. He is he is centrally remained on theNIV at all times except for taking it off for meals. Currently he is on the noninvasive ventilator 30% with saturations 98%. Plan: Patient says he is improved. Review continue Tamiflu day 3. 03/23/2024: Patient states that he is feeling much better. states he is breathing back to his normal. He was requesting to go home. Patient wore the hospital noninvasive ventilator last night and did well. Currently he is off the noninvasive ventilator on 3 L with saturations 92%. He is afebrile. White blood cell count 8.3, creatinine 0.73. Plan: Patient continues to improve. Continue Tamiflu, day 4. If patient remains clinically stable will consider discharge on 03/24/2024. 03/24/24: In use to improve and is completely back to his normal. He denies cough, phlegm or hemoptysis. His white blood cell count is 6.2, his creatinine is 0.62. Currently is on 2 L nasal cannula saturations 96%. Given the patient's severity of influenza infection would continue Tamiflu for a total of 10 days. From a pulmonary perspective patient can be discharged on these pulmonary medications: Tamiflu 75 mg p.o. b.i.d. x5 days, last dose evening of 03/29/24. Symbicort 80-4.5 at 2 puffs q.12 hours. Incruse Ellipta 62.5 at 1 puff q.day rescue albuterol 2 puffs q.4 hours p.r.n. shortness of breath or wheezing Rescue albuterol nebulizer q.4 hours p.r.n. shortness of breath or wheezing oxygen at rest and with activity per formal home O2 assessment which I have ordered BiPAP 23/16 with auto rate and 2 L bleed in when he naps or sleeps follow-up in the Pulmonary Clinic in 4-6 weeks. Patient is an established patient in the clinic and he is instructed to call the clinic to set up this appointment and I have informed our mail service coordinator. Discussed with Karen Kitchen. Will sign off, call with questions (2) COPD (chronic obstructive pulmonary disease): Qualifiers: COPD type: emphysema Emphysema type: unspecified Qualified Code(s): J43.9 - Emphysema, unspecified Code(s): J44.9 - Chronic obstructive pulmonary disease, unspecified Status: Acute Assessment and Plan: Gold grade 4 group D COPD The patient is maintained on Symbicort and Spiriva. PFTs 11/08/2018 with an FEV1 of 0.89 L. 27%, negative bronchodilator response, air trapping, moderately decreased DLCO that was increased when adjusted for alveolar volume. P.r.n. oxygen during the day. Uses BiPAP 23/16 with 2 L bleed in at night for his obstructive sleep apnea. 03/21/24: currently the patient states he has improved. He has influenza pneumonia but no evidence of COPD exacerbation. Blood gas on BiPAP 7.. Plan: I will place the patient on Levalbuterol 1.25 mg Q 6 hours and ipratropium nebulizer 0.5 mg q.6 hours. I will hold off on inhaled steroids as the patient has influenza pneumonia. I will continue noninvasive ventilation with the AVAPS mode PRN. Goal saturation 90-94%. 03/22/2024: No wheezing on exam. Plan: Continue levalbuterol and ipratropium q.6 hours. Noninvasive ventilation with the AVAPS mode p.r.n.. Says he is scared to take it off. I have encouraged him to do so and told him we will monitor his saturations to make sure it is safe. 03/23/2024: No wheezing on exam. He is off the BiPAP during the day. Plan: I will continue levalbuterol and ipratropium nebulizers q.[address] the patient on his home BiPAP settings Rate of 16, pressures 23/16, inspiratory time 1.0, rise of 3 and 28% FiO2 and perform an overnight oximetry on these settings. 03/24/24: patient wore the hospital BiPAP 23/16 and said he slept well. Patient had an overnight oximetry on the hospital BiPAP 23/16 with a rate of 16 and 28% FIO2 with recording duration 5 hours and 27 minutes. Average saturation 97%, low saturation 73%. Time with saturation less than or equal to 88% was 0 minutes. Oxygen desaturation index 1.3. Plan: patient should continues BiPAP 23/16 with 2 L bleed in at home. (3) Obstructive sleep apnea: Code(s): G47.33 - Obstructive sleep apnea (adult) (pediatric) Status: Acute Assessment and Plan: 03/21/24: Patient with obstructive sleep apnea on BiPAP with 2 L bleed in with pressures 23/16. Plan: I will continue noninvasive ventilation with the AVAPS mode as above. 03/23: patient is unable to bring his home noninvasive ventilator in because his is sick with the flu. Plan: I will place the patient on his home BiPAP settings to mimic his home settings: Rate of 16, pressures 23/16, inspiratory time 1.0, rise of 3 and 28% FiO2 and perform an overnight oximetry on these settings. 03/24/24: As above patient should continue home BiPAP 23/16 with 2 L bleed in. Subjective Date/time seen: 03/24/24 09:54 Interval history: 03/21/2024: This is a new pulmonary consult for influenza a with hypoxic respiratory failure. 74-year-old man with a history of hypertension, hyperlipidemia, morbid obesity, paralyzed left hemidiaphragm, COPD, obstructive sleep apnea on BiPAP 23/16 with 2 L bleed in and tobacco use. Patient is followed in the Pulmonary Clinic in last seen on 11/23/2023: Here is this note. 1 year follow-up regarding COPD and LIZZY on BiPAP w/2L O2. He reports he is doing well with his breathing, no ER visits or flareups. He feels his symptoms have been stable. Denies any excessive coughing or sputum production. Denies fever, hemoptysis, chest pains/tightness, or nighttime breathing issues. Main complaint is more anxiety lately that he feels does affect his breathing. He is on medications for anxiety. He will then get on BiPAP which helps. BiPAP usage has been more over the past year. He is compliant with it when asleep. He is maintained on Symbicort and Spiriva, doing well with this. Combivent PRN. He does have oxygen in the home that he uses if his saturations are below 90%.? He does keep track of this. Has O2 bleed-in with BiPAP. Hasn't used it during the day often. He admits to smoking cigarettes 1/2ppd; does smoked marijuana for anxiety.? CAT score 19/40, was 18/40 last visit. Patient presented to the emergency department on 03/20/2024 with shortness of breath. His had the flu 1 week ago. His worsening symptoms let him to use continuous BiPAP at home. Presented to the emergency department with a blood pressure 190/102, heart rate 130, respirations 22 and on BiPAP be was 100% saturated. His white blood cell count was 15.0, eosinophils 0.7%. Creatinine was 0.73, BNP was 2 114. Influenza a RT PCR study positive with a negative COVID and negative RSV and influenza B. on BiPAP rate of 16, pressure 16/8 and 80% patient's blood gas was 7.38/50/378. Approximately 6 hours later blood gas on BiPAP 16/8 and 30% was 7.38/49/97. He was given 1 dose of Solu-Medrol in the emergency room for that has been discontinued. Patient was started on Tamiflu and Incruse. 03/21/2024: today the patient tells me he is 75% better. He has been on continuous BiPAP other than meals and we takes the BiPAP off he oxygenates well on 3 L nasal cannula. He tells me the BiPAP is somewhat uncomfortable and I changed him to a noninvasive ventilation with the AVAPS mode and adjusted settings to come for resulting in a rate of 14, tidal volume 500, EPAP 9, minimal inspiratory pressure 10, maximal inspiratory pressure 25, inspiratory time 0.8, rise of 1 the fastest and 30% FiO2. 03/22/2024. Patient tells me he has a little bit better. He says his lungs feel like they are clearing up. He is he is centrally remained on theNIV at all times except for taking it off for meals. Currently he is on the noninvasive ventilator 30% with saturations 98%. 03/23/2024: Patient states that he is feeling much better. states he is breathing back to his normal. He was requesting to go home. Patient wore the hospital noninvasive ventilator last night and did well. Currently he is off the noninvasive ventilator on 3 L with saturations 92%. He is afebrile. White blood cell count 8.3, creatinine 0.73. 03/24/24: In use to improve and is completely back to his normal. He denies cough, phlegm or hemoptysis. His white blood cell count is 6.2, his creatinine is 0.62. Currently is on 2 L nasal cannula saturations 96%. patient wore the hospital BiPAP 23/16 and said he slept well. Patient had an overnight oximetry on the hospital BiPAP 23/16 with a rate of 16 and 28% FIO2 with recording duration 5 hours and 27 minutes. Average saturation 97%, low saturation 73%. Time with saturation less than or equal to 88% was 0 minutes. Oxygen desaturation index 1.3 DATA 03/24/24: overnight oximetry on the hospital BiPAP 23/16 with a rate of 16 and 28% FIO2 with recording duration 5 hours and 27 minutes. Average saturation 97%, low saturation 73%. Time with saturation less than or equal to 88% was 0 minutes. Oxygen desaturation index 1.3 03/21/24: cho Summary 1. Complete two-dimensional, color flow and Doppler transthoracic echocardiogram is performed. 2. Left ventricular chamber dimension is normal. 3. Left ventricular systolic function is normal, estimated at 65-70%. 4. The left ventricular diastolic function is grade I diastolic dysfunction. 5. E/e' 10 is mildly elevated. 6. Left atrial chamber dimension is mildly enlarged. 7. There is moderate aortic valve sclerosis. 8. There is moderate aortic valve stenosis with a peak velocity of 458 cm/s, mean gradient of 46 mmHg, and aortic valve area of 1.1 cm2. 9. Dilated inferior vena cava with >50% collapse upon inspiration consistent with elevated right atrial pressure, 10 mmHg. Right Ventricle Right ventricular systolic function is normal and with normal TAPSE 2.7 cm. Right ventricular chamber dimension is normal. Right Atria Right atrial chamber dimension is normal. RVSP not calculated. PFT 11/08/18 - extremely severe obstructive ventilatory defect with good bronchodilator response especially in the small airways. Moderate restrictive defect with air trapping. Severe increase in airway resistance. Moderate diffusion defect. FEV1 0.89L, FEV1/FVC 47% pred. He was very dizzy and near syncope doing the PFT. 11/08/2018 - Six min walk - no O2 needed with exertion, walked 800 feet. 11/08/2018 : echo - poor study, EF 60-65%, grade I diastolic dysfunction, mild aortic stenosis, mild pulmonary hypertension RVSP 41 mm Hg. Trace Pulmonary regurg. RV chamber not well seen. BiPAP Titration 03/2014 optimum pressure of BiPAP was achieved at 23/16 with relatively good sleep efficiency and stabilization of oxygen saturation. He was also given an additional 3 L of oxygen with this. Review of Systems Constitutional: Constitutional: Reports no additional constitutional complaints Eyes: Eyes: Reports no additional eye complaints ENT: Reports system reviewed and no additional complaints, except as documented Cardiovascular: Cardiovascular: Reports no additional cardiovascular complaints Respiratory: Respiratory: Reports no additional respiratory complaints Gastrointestinal: Gastrointestinal: Reports no additional gastrointestinal complaints Musculoskeletal: Musculoskeletal: Reports no additional musculoskeletal complaints Neurologic: Reports system reviewed and no additional complaints, except as documented Psychiatric: Psychiatric: Reports no additional psychiatric complaints Endocrine: Endocrine: Reports no additional endocrine complaints Hematologic/Lymphatic: Hematologic/Lymphatic: Reports no additional hematologic/lymphatic complaints Allergic/Immunologic: Allergic/Immunologic: Reports no additional allergic/immunologic complaints Exam Const: General: cooperative, healthy appearing and comfortable Orientation/consciousness: oriented to person, oriented to place and oriented to time HENMT: Head: normal to inspection Ears: hearing grossly normal bilaterally Eyes: General: appearance normal, both eyes and all related structures Neck: Neck: normal visual inspection Chest: Chest palpation & inspection: normal inspection of the chest Resp: Effort & Inspection: normal respiratory effort and able to speak in complete sentences Auscultation: no crackles, no rales, no rhonchi, no wheezes and diminished lung sounds Other: No wheezing Cardio: Jugular venous distension: no JVD GI: Inspection: normal to inspection Skin: General skin exam: normal color Neuro: General: oriented to person, oriented to place and oriented to time Extrem: General: normal to inspection Psych: Appearance: grossly normal Objective Data Vital Signs Vital Signs: Vital Signs - 24 hr 03/23/24 10:00 03/23/24 12:00 03/23/24 12:00 Temperature Pulse Rate 93 90 103 H Respiratory Rate 23 H Blood Pressure Pulse Oximetry 97 Oxygen Delivery BiPAP Oxygen Flow Rate Fraction of Inspired Oxygen 30 03/23/24 12:29 03/23/24 14:00 03/23/24 14:13 Temperature 36.3 C L Pulse Rate 90 105 H 86 Respiratory Rate 23 H 24 H Blood Pressure 137/67 Pulse Oximetry 97 Oxygen Delivery Oxygen Flow Rate Fraction of Inspired Oxygen 03/23/24 14:14 03/23/24 15:39 03/23/24 15:50 Temperature 37.0 C Pulse Rate 86 90 Respiratory Rate 24 H 20 Blood Pressure 149/81 H Pulse Oximetry 97 97 Oxygen Delivery BiPAP Oxygen Flow Rate Fraction of Inspired Oxygen 03/23/24 16:00 03/23/24 16:00 03/23/24 16:57 Temperature Pulse Rate 87 86 87 Respiratory Rate 23 H 23 H Blood Pressure Pulse Oximetry 96 96 Oxygen Delivery BiPAP BiPAP Oxygen Flow Rate Fraction of Inspired Oxygen 28 03/23/24 18:00 03/23/24 20:00 03/23/24 20:00 Temperature Pulse Rate 101 H 93 93 Respiratory Rate 22 H Blood Pressure Pulse Oximetry 97 Oxygen Delivery BiPAP Oxygen Flow Rate Fraction of Inspired Oxygen 28 03/23/24 20:15 03/23/24 22:00 03/23/24 22:39 Temperature 36.8 C Pulse Rate 99 88 81 Respiratory Rate 18 22 H Blood Pressure 128/68 Pulse Oximetry 98 Oxygen Delivery Oxygen Flow Rate Fraction of Inspired Oxygen 03/23/24 22:43 03/23/24 22:43 03/23/24 22:45 Temperature Pulse Rate 81 81 83 Respiratory Rate 22 H 22 H Blood Pressure Pulse Oximetry 97 97 Oxygen Delivery BiPAP BiPAP Oxygen Flow Rate Fraction of Inspired Oxygen 30 03/24/24 00:00 03/24/24 00:00 03/24/24 00:15 Temperature 36.4 C Pulse Rate 84 84 78 Respiratory Rate 18 18 Blood Pressure 120/60 Pulse Oximetry 98 98 Oxygen Delivery BiPAP Oxygen Flow Rate Fraction of Inspired Oxygen 28 03/24/24 02:00 03/24/24 02:30 03/24/24 03:47 Temperature Pulse Rate 82 77 78 Respiratory Rate 32 H 18 Blood Pressure Pulse Oximetry 96 98 Oxygen Delivery BiPAP BiPAP Oxygen Flow Rate Fraction of Inspired Oxygen 28 03/24/24 03:47 03/24/24 04:50 03/24/24 05:00 Temperature 36.5 C Pulse Rate 78 78 80 Respiratory Rate 17 17 Blood Pressure 135/62 Pulse Oximetry 99 98 Oxygen Delivery BiPAP Oxygen Flow Rate Fraction of Inspired Oxygen 03/24/24 05:47 03/24/24 07:56 03/24/24 08:00 Temperature 36.8 C Pulse Rate 72 93 Respiratory Rate 20 Blood Pressure 140/86 Pulse Oximetry 93 93 Oxygen Delivery Nasal Cannula Oxygen Flow Rate 3 Fraction of Inspired Oxygen 03/24/24 08:30 03/24/24 08:30 03/24/24 08:40 Temperature Pulse Rate 102 H 102 H 105 H Respiratory Rate 29 H 29 H 20 Blood Pressure Pulse Oximetry 95 Oxygen Delivery BiPAP Oxygen Flow Rate Fraction of Inspired Oxygen Intake/Output Intake/Output: Intake & Output 03/21/24 03/22/24 03/23/24 03/24/24 23:59 23:59 23:59 23:59 Intake Total 2650 1510 3194 1340 Output Total 1800 2200 1750 300 Balance 850 -690 1444 1040 Meds/Results Medications: Active Medications Generic Name Dose Route Start Last Admin Trade Name Freq PRN Reason Stop Dose Admin Acetaminophen 650 mg 03/20/24 13:46 03/24/24 02:15 Acetaminophen 325 Mg Tablet PO 650 mg Q4H PRN Administration Mild Pain (1-3) or Fever Acetaminophen 1,000 mg 03/21/24 13:00 03/24/24 08:45 Acetaminophen 500 Mg Tablet PO 1,000 mg Q12HR JONATHAN Administration Albuterol 1 - 2 puff 03/21/24 10:32 03/21/24 15:14 Albuterol Sulfate (*Sp) Aerosol 1 Puff INHALATION 2 puff Q4HRT PRN Administration Shortness Of Breath Or Wheezing Amitriptyline HCl 50 mg 03/20/24 21:00 03/23/24 20:18 Amitriptyline Hcl 25 Mg Tablet PO 50 mg HS JONATHAN Administration Buspirone HCl 15 mg 03/21/24 09:00 03/24/24 08:44 Buspirone Hcl 5 Mg Tablet PO 15 mg QAM JONATHAN Administration Docusate Sodium 100 mg 03/21/24 09:00 03/24/24 08:45 Docusate Sodium 100 Mg Capsule PO 100 mg DAILY JONATHAN Administration Enoxaparin Sodium 40 mg 03/20/24 13:50 03/24/24 08:52 Enoxaparin 40 Mg/0.4 Ml Syringe SUB-Q 40 mg DAILY JONATHAN Administration Ipratropium [place] 0.5 mg 03/21/24 20:00 03/24/24 08:18 Ipratropium Br 0.02% Inh Soln 0.5 Mg/2.5 Ml Vial INHALATION 0.5 mg Q6HRT JONATHAN Administration Levalbuterol HCl 1.25 mg 03/20/24 14:00 03/24/24 08:18 Levalbuterol Neb 1.25 Mg/3 Ml INHALATION 1.25 mg Q6HRT JONATHAN Administration Lorazepam 1 mg 03/20/24 19:16 03/24/24 02:16 Lorazepam (*Crx) 1 Mg Tablet PO 1 mg Q6H PRN Administration Anxiety Oseltamivir Phosphate 75 mg 03/20/24 21:00 03/24/24 08:46 Oseltamivir Phosphate 75 Mg Capsule PO 03/24/24 21:01 75 mg Q12HR JONATHAN Administration Oxycodone HCl 5 mg 03/22/24 10:45 03/22/24 14:59 Oxycodone Hcl (*Crx) 5 Mg Tab Ir PO 5 mg Q6H PRN Administration Pain Rated 7-10 Phenytoin Sodium 200 mg 03/20/24 12:50 03/24/24 08:47 Phenytoin Sodium 100 Mg Extended Release Cap PO 200 mg Q12HR JONATHAN Administration Simvastatin 10 mg 03/20/24 21:00 03/23/24 20:18 Simvastatin 10 Mg Tablet PO 10 mg HS JONATHAN Administration Triamterene/Hydrochlorothiazide 1 tab 03/21/24 09:00 03/24/24 08:47 Triamterene 37.5 Mg/Hctz 25 Mg (Maxzide) Tablet PO 1 tab QAM JONATHAN Administration Venlafaxine HCl 75 mg 03/20/24 21:00 03/23/24 20:18 Venlafaxine Hcl Xr 75 Mg Cap.Er.24h PO 75 mg HS JONATHAN Administration Venlafaxine HCl 150 mg 03/20/24 12:50 03/24/24 08:46 Venlafaxine Hcl Xr 75 Mg Cap.Er.24h PO 150 mg QAM JONATHAN Administration Radiology Results: ITS Impressions Chest X-Ray 03/22/24 08:00 Impression: [id number] left pleural effusion. Central pulmonary venous congestive change. Labs Labs: Laboratory Results - last 24 hr 03/24/24 07:24 WBC 6.2 RBC 3.79 L Hgb 11.8 L Hct 35.9 L MCV 94.7 MCH 31.1 MCHC 32.9 RDW 12.7 Plt Count 271 MPV 8.3 Sodium 135 L Potassium 3.7 Chloride 94 L Carbon Dioxide 35 H Anion Gap 6 BUN 19 Creatinine 0.62 L Estim Creat Clear Calc 118 Estimated GFR > 60 Glucose 111 H Calcium 9.1
[2024-03-24] MEDS: oxyCODONE HCL (*CRX) 5 MG TAB IR PO (12:28)
--- NOTE | 2024-03-24 12:40 | PCRCNOTE ---
Patient states he already has home oxygen through [facility]. Home oxygen eval done and patient was 89-94% while walking with 3L NC and 95% at rest with 3L NC. Due to patient already having home oxygen through [facility], no new orders need to be made @ this time.
== END 2024-03-24 15:16 | disposition home or self-care (01) | DRG 193 ==
LOC: ANHED 10:23 → ANHIMU 11:08
PROVIDERS: Internal Medicine Pulmonary Disease; Nurse Practitioner Gerontology; Admitting Provider Hospitalist; Emergency Provider Emergency Medicine; PCP Family Medicine; Visit Provider Nurse Practitioner
DX: J10.00 Influenza due to other identified influenza virus with unspecified type of pneumonia (principal); I50.31 Acute diastolic (congestive) heart failure; J96.01 Acute respiratory failure with hypoxia; J44.0 Chronic obstructive pulmonary disease with (acute) lower respiratory infection; J44.1 Chronic obstructive pulmonary disease with (acute) exacerbation; E78.5 Hyperlipidemia, unspecified; F41.9 Anxiety disorder, unspecified; R56.9 Unspecified convulsions; F17.290 Nicotine dependence, other tobacco product, uncomplicated; G47.33 Obstructive sleep apnea (adult) (pediatric); J98.6 Disorders of diaphragm; E66.01 Morbid (severe) obesity due to excess calories; Z20.822 Contact with and (suspected) exposure to COVID-19; I11.0 Hypertensive heart disease with heart failure; I35.0 Nonrheumatic aortic (valve) stenosis
CPT/HCPCS: 36415; 36600; 71045; 80048; 80053; 82805; 83605; 83735; 83880; 84145; 84484; 85018; 85025; 85027; 85610; 85730; 87040; 87637; 93005; 93306; 94003; 94618; 94640; 94762; 96361; 96374; 96375; 99285; A9270; J1650; J1940; J2060; J2919; J7120